=== PATIENT | female | born 1940 | race Caucasian/White ===

== ENCOUNTER 2017-10-14 12:07 | Emergency (ER) | payer MEDICARE, OTHER ==
[~2017-10-14] VITALS: Ht 170.2 cm; Wt 66.0 kg
[2017-10-14 12:46] LABS: BASOPHILS % (AUTO) 0.2 % (0-1); EOSINOPHILS # (AUTO) 0.6 X10'3 (0-0.9); EOSINOPHILS % (AUTO) 3.4 % (0-6); HEMATOCRIT 42.4 % (35.0-45.0); HEMOGLOBIN 14.8 g/dl (12.0-16.0); LYMPHOCYTES # (AUTO) 7.3 X10'3 (1.1-4.8); LYMPHOCYTES % (AUTO) 38.5 % (21-51); MEAN CORPUSCULAR HEMOGLOBIN 31.7 PG (27.0-31.0); MEAN CORPUSCULAR HGB CONC 34.8 % (33.0-36.5); MEAN CORPUSCULAR VOLUME 91.3 FL (78-98); MEAN PLATELET VOLUME 8.6 FL (7.4-10.4); MONOCYTES # (AUTO) 0.8 X10'3 (0-0.9); MONOCYTES % (AUTO) 4.2 % (2-12); NEUTROPHILS # (AUTO) 10.3 X10'3 (1.8-7.7); NEUTROPHILS % (AUTO) 53.7 % (42-75); PLATELET COUNT 201 X10'3 (140-440); RED BLOOD COUNT 4.65 X10'6 (4.20-5.60); RED CELL DISTRIBUTION WIDTH 14.1 % (11.5-14.5); WHITE BLOOD COUNT 19.1 X10'3 (4.5-11.0)
[2017-10-14 12:56] LABS: PARTIAL THROMBOPLASTIN TIME 26 SECONDS (22-32); PROTHROMBIN TIME 10.2 SECONDS (9.0-12.0)
[2017-10-14 13:02] LABS: ALANINE AMINOTRANSFERASE 19 U/L (12-78); ALBUMIN 3.8 G/DL (3.4-5.0); ALBUMIN/GLOBULIN RATIO 1.2 (1.1-1.5); ALKALINE PHOSPHATASE 63 IU/L (46-116); ANION GAP 7 (8-16); ASPARTATE AMINO TRANSFERASE 19 U/L (10-37); BILIRUBIN,TOTAL 0.6 MG/DL (0.1-1.0); BLOOD UREA NITROGEN 16 MG/DL (7-18); BUN/CREATININE RATIO 19.5 (6.6-38.0); CALCIUM 8.8 MG/DL (8.5-10.1); CHLORIDE 101 MMOL/L (99-107); CREATININE 0.82 MG/DL (0.40-0.90); GLUCOSE 126 MG/DL (70-104); POTASSIUM 4.4 MMOL/L (3.5-5.1); SODIUM 137 MMOL/L (135-145); TOTAL CARBON DIOXIDE 29.5 MMOL/L (24-32); eGFR 67 ML/MIN
[2017-10-14] MEDS ORDERED: normal saline 1000ML IV soln IVB ONE (13:35)
[2017-10-14 14:42] VITALS: BP 132/66
== END 2017-10-14 14:44 | disposition home or self-care (01) ==
LOC: ER 12:08
DX: R10.11 Right upper quadrant pain (principal); R10.13 Epigastric pain; E11.9 Type 2 diabetes mellitus without complications; Z90.49 Acquired absence of other specified parts of digestive tract; Z88.2 Allergy status to sulfonamides; Z88.8 Allergy status to other drugs, medicaments and biological substances
CPT/HCPCS: 36415; 71045; 80053; 83605; 84145; 84484; 85025; 85610; 85730; 87040; 93005; 99285; J7030

== ENCOUNTER 2019-09-15 14:12 | Emergency (ER) | payer MEDICARE, OTHER ==
[~2019-09-15] VITALS: Ht 172.7 cm; Wt 70.0 kg
[2019-09-15] MEDS ORDERED: acetaminophen 325mg tablet PO ONE (14:45)
--- NOTE | 2019-09-15 14:59 | NUR ---
relieving RN for break, pt is resting quietly on [address], waiting for pharmacy technician
[2019-09-15] MEDS ORDERED: CEPH-572 PO (16:34)
[2019-09-15] MEDS ORDERED: cephalexin 250mg capsule PO ONE (16:35)
[2019-09-15 16:56] VITALS: BP 189/89
== END 2019-09-15 16:58 | disposition home or self-care (01) ==
LOC: ER 14:12
DX: L03.116 Cellulitis of left lower limb (principal); E11.9 Type 2 diabetes mellitus without complications; Z90.49 Acquired absence of other specified parts of digestive tract; Z88.2 Allergy status to sulfonamides; Z91.041 Radiographic dye allergy status; Z88.8 Allergy status to other drugs, medicaments and biological substances; Z79.899 Other long term (current) drug therapy
CPT/HCPCS: 93971; 99284

== ENCOUNTER 2019-10-08 14:10 | Inpatient (IN) | payer MEDICARE, OTHER ==
[~2019-10-08] VITALS: Ht 170.2 cm; Wt 78.6 kg
[~2019-10-08 14:10] MED LIST: CEPH-572 PO
[2019-10-08] MEDS ORDERED: normal saline 1000ML IV soln IV ONE (15:00)
[2019-10-08] MEDS ORDERED: fentaNYL/PF 50MCG/1 ML 2ML syringe IV ONE (15:15)
[2019-10-08] MEDS ORDERED: piperacillin/tazo 3.375gm/50ml 50 ML IV ONE (15:15)
[2019-10-08] MEDS ORDERED: vancomycin/NS 1 GM ADD-VANTAGE 250 ML IV ONE (15:15)
[2019-10-08] MEDS ORDERED: ondansetron/PF 4mg/2ml inj IV ONE (15:15)
[2019-10-08 15:34] LABS: BASOPHILS # (AUTO) 0.1 X10'3 (0-0.2); BASOPHILS % (AUTO) 0.5 % (0-1); EOSINOPHILS # (AUTO) 0.2 X10'3 (0-0.9); EOSINOPHILS % (AUTO) 1.1 % (0-6); HEMOGLOBIN 13.9 g/dl (12.0-16.0); LYMPHOCYTES # (AUTO) 7.7 X10'3 (1.1-4.8); LYMPHOCYTES % (AUTO) 43.9 % (21-51); MEAN CORPUSCULAR HEMOGLOBIN 32.5 PG (27.0-31.0); MEAN CORPUSCULAR HGB CONC 34.6 g/dL (33.0-36.5); MEAN CORPUSCULAR VOLUME 93.8 FL (78-98); MEAN PLATELET VOLUME 8.5 FL (7.4-10.4); MONOCYTES # (AUTO) 0.6 X10'3 (0-0.9); MONOCYTES % (AUTO) 3.4 % (2-12); NEUTROPHILS % (AUTO) 51.1 % (42-75); PLATELET COUNT 186 X10'3 (140-440); RED BLOOD COUNT 4.27 X10'6 (4.20-5.60); RED CELL DISTRIBUTION WIDTH 13.7 % (11.5-14.5); WHITE BLOOD COUNT 17.6 X10'3 (4.5-11.0)
[2019-10-08] MEDS ORDERED: LORazepam 2 mg/ml vial IV ONE (15:40)
[2019-10-08 15:50] LABS: ALANINE AMINOTRANSFERASE 15 U/L (12-78); ALBUMIN 3.8 G/DL (3.4-5.0); ALBUMIN/GLOBULIN RATIO 1.2 (1.1-1.5); ALKALINE PHOSPHATASE 64 IU/L (46-116); ANION GAP 9 (8-16); ASPARTATE AMINO TRANSFERASE 14 U/L (10-37); BILIRUBIN,TOTAL 0.6 MG/DL (0.1-1.0); BLOOD UREA NITROGEN 12 MG/DL (7-18); BUN/CREATININE RATIO 13.5 (6.6-38.0); CHLORIDE 104 MMOL/L (99-107); CREATININE 0.89 MG/DL (0.40-0.90); GLUCOSE 123 MG/DL (70-104); POTASSIUM 4.3 MMOL/L (3.5-5.1); SODIUM 140 MMOL/L (135-145); TOTAL CARBON DIOXIDE 26.9 MMOL/L (24-32); TOTAL PROTEIN 6.9 G/DL (6.4-8.2); eGFR 61 ML/MIN
--- NOTE | 2019-10-08 16:00 | NUR ---
TRICIA Wynne aware of Pt's BP. Pt is very anxious regarding potential admission and possiblity of surgery. Pt was given 0.5 mg Ativan IVP. Per TRICIA Wynne, will continue to monitor and treat BP if remains elevated.
--- NOTE | 2019-10-08 16:31 | NUR ---
VASCULAR US UNDERWAY
[2019-10-08] MEDS ORDERED: iohexol 350 MG/ML 50ML vial IV ONE (16:44)
[2019-10-08] MEDS ORDERED: iohexol 350MG/ML 100ml bottle IV ONE (16:44)
[2019-10-08] MEDS ORDERED: NO HOME MEDS (16:57)
--- NOTE | 2019-10-08 17:52 | NUR ---
discussed pt's bp with hospitalist nikia; new order for clonidine 0.1 mg iv now received.
[2019-10-08] MEDS ORDERED: cloNIDine 0.1 mg tablet PO ONE ×2 (18:00→18:10)
[2019-10-08] MEDS: normal saline 1000ml 1,000 ML IV SCH (18:02)
[2019-10-08] MEDS ORDERED: magnesium Cl slow-release 64mg tablet PO PRN (18:05)
[2019-10-08] MEDS ORDERED: potassium Cl 20 mEq SR tablet PO PRN ×2 (18:05)
[2019-10-08] MEDS ORDERED: ondansetron/PF 4mg/2ml inj IV PRN (18:05)
[2019-10-08] MEDS ORDERED: magnesium 2GM in 50ml NS 50 ML IV PRN (18:05)
[2019-10-08] MEDS ORDERED: potassium CL 10mEq/100ml bag 100 ML IV PRN ×2 (18:05)
[2019-10-08] MEDS ORDERED: docusate sod 100mg capsule PO PRN (18:05)
[2019-10-08] MEDS ORDERED: magnesium 4gm in 100ml NS 100 ML IV PRN (18:05)
[2019-10-08] MEDS ORDERED: acetaminophen 325mg tablet PO PRN (18:05)
--- NOTE | 2019-10-08 18:30 | NUR ---
PT REFUSES TO WEAR 5-LEAD HEART MONITOR. WILL CONTINUE TO MONITOR PT
[2019-10-08] MEDS: hyDRALAzine 10mg tablet PO SCH (18:34)
[2019-10-08 19:06] LABS: HEMOGLOBIN A1C 6.4 % (4.5-6.2)
--- NOTE | 2019-10-08 19:30 | NUR ---
I was given verbal report by Melanie KOTHARI in the ER and I will give report to Babs KOTHARI,
--- NOTE | 2019-10-08 19:40 | NUR ---
patient arrived to floor via gurney and she was assisted to the bed with 2 assist. Belongings placed in the closet and drawers,
[2019-10-08 20:00] VITALS: BP 201/89
[2019-10-08] MEDS: K and/or MAG REPLACEMENT MC SCH (20:00)
[2019-10-08] MEDS: acetaminophen 325mg tablet PO PRN (20:17)
[2019-10-08] MEDS: heparin, porcine 5000 units/ml vial SQ SCH (20:57)
[2019-10-08] MEDS ORDERED: traMADol 50MG tablet PO ONE (21:50)
[2019-10-08 22:00] VITALS: BP 191/84
--- NOTE | 2019-10-08 22:30 | NUR ---
patient continues to c/o sharp pain shooting LLE. Tylenol was administered upon arrival to floor. MD was called and Ultram was administered. Gatched bed and placed powder pack. patient still c/o pain and states that it feels better when she sits on edge of bed. Educated about dependent edema and how this can effect her pain... patient refusing all interventions. States she is scared to take any narcotics, but was given fentanyl in ER.
--- NOTE | 2019-10-09 06:29 | NUR ---
Problems reprioritized. Patient report given, questions answered & plan of care reviewed with TAYE Johnson.
[2019-10-09 06:30] VITALS: BP 163/65
--- NOTE | 2019-10-09 07:00 | NUR ---
Patient in room ORTHO 4012. I have received report from Babs KOTHARI and had the opportunity to ask questions and assume patient care.
[2019-10-09 07:43] LABS: BASOPHILS % (AUTO) 0.3 % (0-1); EOSINOPHILS # (AUTO) 0.1 X10'3 (0-0.9); HEMOGLOBIN 12.4 g/dl (12.0-16.0); LYMPHOCYTES % (AUTO) 36.2 % (21-51); MEAN CORPUSCULAR HGB CONC 34.6 g/dL (33.0-36.5); MEAN CORPUSCULAR VOLUME 95.4 FL (78-98); MEAN PLATELET VOLUME 8.9 FL (7.4-10.4); MONOCYTES # (AUTO) 0.6 X10'3 (0-0.9); NEUTROPHILS # (AUTO) 8.1 X10'3 (1.8-7.7); NEUTROPHILS % (AUTO) 58.5 % (42-75); PLATELET COUNT 167 X10'3 (140-440); RED BLOOD COUNT 3.77 X10'6 (4.20-5.60); RED CELL DISTRIBUTION WIDTH 13.5 % (11.5-14.5); WHITE BLOOD COUNT 13.9 X10'3 (4.5-11.0)
[2019-10-09] MEDS: pantoprazole 40mg Tablet.DR PO SCH (07:45)
[2019-10-09] MEDS: hyDRALAzine 10mg tablet PO SCH ×2 (07:46→19:20)
--- NOTE | 2019-10-09 07:57 | NUR ---
Student Medication Administration: For this medication-pass time frame, all medication were reviewed, dispensed, administered and documented per hospital policy by Meeta Student Nurse.
[2019-10-09] MEDS: heparin, porcine 5000 units/ml vial SQ SCH ×2 (08:00→19:21)
[2019-10-09] MEDS: K and/or MAG REPLACEMENT MC SCH ×2 (08:00→19:13)
[2019-10-09 08:17] LABS: ALANINE AMINOTRANSFERASE 18 U/L (12-78); ALBUMIN 3.3 G/DL (3.4-5.0); ALBUMIN/GLOBULIN RATIO 1.2 (1.1-1.5); ALKALINE PHOSPHATASE 53 IU/L (46-116); ANION GAP 7 (8-16); ASPARTATE AMINO TRANSFERASE 40 U/L (10-37); BILIRUBIN,TOTAL 0.7 MG/DL (0.1-1.0); BLOOD UREA NITROGEN 11 MG/DL (7-18); BUN/CREATININE RATIO 12.9 (6.6-38.0); CALCIUM 8.3 MG/DL (8.5-10.1); CHLORIDE 106 MMOL/L (99-107); CHOLESTEROL 136 MG/DL (0-200); CREATININE 0.85 MG/DL (0.40-0.90); GLUCOSE 151 MG/DL (70-104); HDL CHOLESTEROL 46 MG/DL (35-60); LDL CHOLESTEROL 74 MG/DL (50-100); MAGNESIUM 1.8 MG/DL (1.5-2.4); POTASSIUM 4.1 MMOL/L (3.5-5.1); SODIUM 142 MMOL/L (135-145); TOTAL CARBON DIOXIDE 29.3 MMOL/L (24-32); TRIGLYCERIDES 76 MG/DL (20-135); eGFR 64 ML/MIN
--- NOTE | 2019-10-09 08:43 | NUR ---
PAGER ID: [phone] MESSAGE: [phone] Irish Sierra: patient has CTA ordered, she states she has an iodine allergy. forestry technical officer called wants to know if you would like to premedicate or do an MRI? rahul [phone]
--- NOTE | 2019-10-09 08:50 | NUR ---
PAGER ID: [phone] MESSAGE: [phone] Irish Sierra : CTA is not possible without iodine. They can do a regular CT without contrast... thanks, rahul [phone]
[2019-10-09] MEDS: acetaminophen 325mg tablet PO PRN (10:38)
[2019-10-09] MEDS: normal saline 1000ml 1,000 ML IV SCH ×2 (10:41→22:38)
[2019-10-09 11:00] VITALS: BP 171/60
--- NOTE | 2019-10-09 12:21 | NUR ---
Student documentation: I have reviewed interventions, assessments performed and documented by Crystal Student Nurse.
[2019-10-09] MEDS ORDERED: diphenhydrAMINE 25mg capsule PO ONE (12:55)
[2019-10-09] MEDS ORDERED: prednisone 10mg tablet PO PRN (12:55)
--- NOTE | 2019-10-09 15:30 | NUR ---
PAGER ID: [phone] MESSAGE: [phone] Irish Sierra : patients BP has been trending high. would you like a PRN in addition to her home meds? rahul [phone]
[2019-10-09] MEDS ORDERED: labetalol 100mg tablet PO SCH (15:35)
[2019-10-09] MEDS: vancomycin/NS 1 GM ADD-VANTAGE 250 ML IV SCH (15:39)
--- NOTE | 2019-10-09 15:59 | NUR ---
Patients BP has been trending high. she states she is allergic to BP medications and is hesitant to use them. Labetalol ordered by MD. patient refused.
--- NOTE | 2019-10-09 16:03 | NUR ---
PAGER ID: [phone] MESSAGE: [phone] Irish Sierra : patient refused labetolol. said she would do lisinopril because that was not a true allergy. thanks, rahul [phone]
[2019-10-09] MEDS ORDERED: LORazepam 0.5 MG tablet PO ONE (16:10)
[2019-10-09 16:37] VITALS: BP 160/62
[2019-10-09] MEDS: lisinopril 10 MG tablet PO SCH (16:37)
--- NOTE | 2019-10-09 17:26 | NUR ---
Problems reprioritized. Patient report given, questions answered & plan of care reviewed with TAYE Johnson.
[2019-10-09 18:00] VITALS: BP 167/66
--- NOTE | 2019-10-09 18:23 | NUR ---
Problems reprioritized. Patient report given, questions answered & plan of care reviewed with TAYE Menendez. Addendum: 10/09/19 at 1824 by Yolanda Chan RN Problems reprioritized. Patient report given, questions answered & plan of care reviewed with TAYE BOSTON.
--- NOTE | 2019-10-09 18:30 | NUR ---
received report. patient extremely anxious regarding CTA with contrast. Adamantly refusing steroids/benedryl and contrast media. Explained that she has this right, but that MD needs a good picture in order to perform sx. being that she came here for help, we are trying to do this, but having trouble since she is refusing all interventions.
[2019-10-09] MEDS: lactobacillus rhamnosus 10,000 MMU CELLS/CAPSULE PO SCH (19:20)
[2019-10-09 22:00] VITALS: BP 189/77
[2019-10-10] MEDS: normal saline 1000ml 1,000 ML IV SCH ×3 (02:00→19:27)
[2019-10-10] MEDS: acetaminophen 325mg tablet PO PRN (05:01)
[2019-10-10 06:00] VITALS: BP 207/86
--- NOTE | 2019-10-10 06:20 | NUR ---
Patient in room ORTHO 4012. I have received report from Ginger and had the opportunity to ask questions and assume patient care.
[2019-10-10 06:29] LABS: BASOPHILS # (AUTO) 0.1 X10'3 (0-0.2); BASOPHILS % (AUTO) 0.7 % (0-1); EOSINOPHILS # (AUTO) 0.2 X10'3 (0-0.9); EOSINOPHILS % (AUTO) 1.4 % (0-6); HEMATOCRIT 34.1 % (35.0-45.0); LYMPHOCYTES # (AUTO) 4.6 X10'3 (1.1-4.8); LYMPHOCYTES % (AUTO) 38.2 % (21-51); MEAN CORPUSCULAR HEMOGLOBIN 33.5 PG (27.0-31.0); MEAN CORPUSCULAR HGB CONC 35.1 g/dL (33.0-36.5); MEAN CORPUSCULAR VOLUME 95.3 FL (78-98); MEAN PLATELET VOLUME 8.3 FL (7.4-10.4); MONOCYTES # (AUTO) 0.5 X10'3 (0-0.9); MONOCYTES % (AUTO) 3.8 % (2-12); NEUTROPHILS # (AUTO) 6.7 X10'3 (1.8-7.7); NEUTROPHILS % (AUTO) 55.9 % (42-75); PLATELET COUNT 154 X10'3 (140-440); RED BLOOD COUNT 3.58 X10'6 (4.20-5.60); RED CELL DISTRIBUTION WIDTH 13.5 % (11.5-14.5); WHITE BLOOD COUNT 11.9 X10'3 (4.5-11.0)
--- NOTE | 2019-10-10 06:30 | NUR ---
Problems reprioritized. Patient report given, questions answered & plan of care reviewed with TAYE Mullins.
[2019-10-10 06:48] LABS: ALANINE AMINOTRANSFERASE 17 U/L (12-78); ALBUMIN 2.9 G/DL (3.4-5.0); ALBUMIN/GLOBULIN RATIO 1.1 (1.1-1.5); ALKALINE PHOSPHATASE 44 IU/L (46-116); ANION GAP 6 (8-16); ASPARTATE AMINO TRANSFERASE 30 U/L (10-37); BILIRUBIN,TOTAL 0.5 MG/DL (0.1-1.0); BLOOD UREA NITROGEN 7 MG/DL (7-18); CHLORIDE 108 MMOL/L (99-107); CREATININE 0.78 MG/DL (0.40-0.90); GLUCOSE 167 MG/DL (70-104); MAGNESIUM 1.8 MG/DL (1.5-2.4); POTASSIUM 3.9 MMOL/L (3.5-5.1); SODIUM 142 MMOL/L (135-145); TOTAL CARBON DIOXIDE 28.2 MMOL/L (24-32); TOTAL PROTEIN 5.6 G/DL (6.4-8.2); eGFR 71 ML/MIN
[2019-10-10] MEDS: HYDROcodone/acetaminophen 5mg/325mg tablet PO PRN ×2 (06:58→22:35)
[2019-10-10] MEDS: pantoprazole 40mg Tablet.DR PO SCH (06:58)
[2019-10-10] MEDS: K and/or MAG REPLACEMENT MC SCH ×2 (08:00→20:00)
[2019-10-10] MEDS: hyDRALAzine 10mg tablet PO SCH (08:59)
[2019-10-10] MEDS: lactobacillus rhamnosus 10,000 MMU CELLS/CAPSULE PO SCH ×2 (09:00→20:00)
[2019-10-10] MEDS: lisinopril 10 MG tablet PO SCH (09:01)
[2019-10-10] MEDS: heparin, porcine 5000 units/ml vial SQ SCH ×2 (09:18→22:22)
--- NOTE | 2019-10-10 09:49 | NUR ---
DM consult: Pt with A1c 6.4%, DM education not warranted at this time. Will continue to follow. Addendum: 10/10/19 at [address] Amended: Links added.
[2019-10-10 10:00] VITALS: BP 175/79
--- NOTE | 2019-10-10 10:14 | NUR ---
Per MD, ordered one time CC/HH breakfast tray for pt. For now, the diet will remain on clears until new orders are received.
--- NOTE | 2019-10-10 11:45 | NUR ---
Paged physical therapy to work with pt for a second time. Pt adamantly refused to work with physical therapy. Pt was given pain medication this morning, refused to work with physical therapy after indicating the medication had helped but she was still feeling "off". Pt stated physical therapy should come to work with her after all of her testing and/or procedures. Pt refused to work with physical therapy citing fear of pain even though she stated she was pain free at the time. Teaching was provided regarding physical therapy, discharge planning, pt's abilities.
[2019-10-10] MEDS ORDERED: LIDOcaine 1%/PF 5ML 10 MG/ML VIAL ONE ×2 (15:44→17:48)
[2019-10-10] MEDS ORDERED: midazolam 2 mg/2 ml injection ONE ×3 (15:44→17:30)
[2019-10-10] MEDS ORDERED: heparin 1,000 UNITS/NS 500ml 500 ML ONE ×2 (15:44→17:01)
[2019-10-10] MEDS ORDERED: fentaNYL/PF 50MCG/1 ML 2ML syringe ONE ×3 (15:45→17:30)
--- NOTE | 2019-10-10 15:45 | NUR ---
Pt taken to angio
[2019-10-10] MEDS ORDERED: iohexol 300 MG/1 ML 50ml polymer ONE (16:16)
[2019-10-10] MEDS ORDERED: hydrALAZINE 20mg/ml inj. IV ONE ×2 (16:27→17:46)
[2019-10-10] MEDS ORDERED: heparin 1,000unit/ml 10ml vial 10 ML ONE (16:35)
[2019-10-10] MEDS ORDERED: ondansetron/PF 4mg/2ml inj ONE ×2 (17:14→18:19)
--- NOTE | 2019-10-10 18:34 | NUR ---
Problems reprioritized. Patient report given, questions answered & plan of care reviewed with
--- NOTE | 2019-10-10 18:44 | NUR ---
Patient in room ORTHO 4012. I have received report from Susanna KOTHARI and had the opportunity to ask questions and assume patient care.
[2019-10-10] MEDS: vancomycin/NS 1 GM ADD-VANTAGE 250 ML IV SCH (19:26)
[2019-10-10 19:45] VITALS: BP 169/75
[2019-10-10 22:00] VITALS: BP 174/72
[2019-10-10] MEDS: cloNIDine 0.1 mg tablet PO SCH (22:21)
[2019-10-11 02:00] VITALS: BP 158/57
--- NOTE | 2019-10-11 02:22 | NUR ---
PATIENT WAS IN ANGIO AT CHANGE OF SHIFT. RETURNED TO FLOOR AT 1935. HAD DEVELOPED A HEMATOMA WITH INITIAL PUNCTURE. DISCOLORATION/BRUISING EVIDENT BUT SURROUNDING TISSUE SOFT. FEM/STOP TO SECONDARY PUNCTURE INTACT, PATIENT EDUCATED ON LYING FLAT UNTIL MIDNIGHT. ICE CHIPS GIVEN. REPORTED PATIENT RECEIVED HYDROLAZINE DURING PROCEDURE FOR ELEVATED B/P, HEPARIN, FENTANYL AND VERSED. VERY SLEEPY, BUT WAKES TO LIGHT TOUCH. PROCEDURE WAS DONE BY ENTERING R GROIN AND REPAIR DONE TO RLE. DRSNG INTACT TO LL CALF AREA AND ELEVATED ON PILLOW. VITAL SIGNS TAKEN, AND PATIENT FALLS BACK TO SLEEP EASILY WITH NO DISTRESS NOTED. SEVERAL TIMES THROUGH THE NIGHT SHE WOULD ASK TO SIT UP BUT WITH REMINDERS, WAS ABLE TO GO BACK TO SLEEP. MEDICATED AT ONE POINT WITH A NORCO 5, CRUSHED AND GIVEN IN APPLESAUCE, TOLERATED WELL. FEM/STOP WAS REMOVED AT 0130. SMALL PATCH OF DRAINAGE TO CENTER OF DRESSING, INITIAL PUNCTURE SITE REMAINS BRUISED BUT SOFT TO TOUCH. HOB UP 20 DEGREES, DRANK A CUP OF WATER AND SEEMS COMFORTABLE NOW. CALL LIGHT IN REACH. PLACED WICK EARLIER AFTER PATIENT RETURNED FROM ANGIO D/T INCONTINENCE AND SEEMS TO BE WORKING WELL FOR HER.
[2019-10-11] MEDS: HYDROcodone/acetaminophen 5mg/325mg tablet PO PRN ×4 (03:34→23:08)
--- NOTE | 2019-10-11 03:36 | NUR ---
norco ordered q6hrs, but patient in a lot of pain at this time. Given verbal order by Dr Holloway to change frequency to q4 and dose to 10mg. Pt refuses 10mg dose, so will give [place] 5mg with frequency changed to Q4Hr.
[2019-10-11] MEDS: normal saline 1000ml 1,000 ML IV SCH ×2 (05:25→19:30)
[2019-10-11 06:00] VITALS: BP 147/54
[2019-10-11 06:48] LABS: BASOPHILS # (AUTO) 0.1 X10'3 (0-0.2); BASOPHILS % (AUTO) 0.4 % (0-1); EOSINOPHILS # (AUTO) 0.1 X10'3 (0-0.9); EOSINOPHILS % (AUTO) 0.5 % (0-6); HEMATOCRIT 30.3 % (35.0-45.0); HEMOGLOBIN 10.6 g/dl (12.0-16.0); LYMPHOCYTES # (AUTO) 4.8 X10'3 (1.1-4.8); LYMPHOCYTES % (AUTO) 32.9 % (21-51); MEAN CORPUSCULAR HEMOGLOBIN 33.3 PG (27.0-31.0); MEAN CORPUSCULAR HGB CONC 34.8 g/dL (33.0-36.5); MEAN CORPUSCULAR VOLUME 95.6 FL (78-98); MEAN PLATELET VOLUME 8.5 FL (7.4-10.4); MONOCYTES # (AUTO) 0.5 X10'3 (0-0.9); MONOCYTES % (AUTO) 3.6 % (2-12); NEUTROPHILS # (AUTO) 9.2 X10'3 (1.8-7.7); NEUTROPHILS % (AUTO) 62.6 % (42-75); PLATELET COUNT 183 X10'3 (140-440); RED BLOOD COUNT 3.17 X10'6 (4.20-5.60); RED CELL DISTRIBUTION WIDTH 13.7 % (11.5-14.5); WHITE BLOOD COUNT 14.7 X10'3 (4.5-11.0)
--- NOTE | 2019-10-11 06:54 | NUR ---
REPORT TO EARLY SHIFT, DIMITRI KOTHARI
[2019-10-11 06:57] LABS: ALANINE AMINOTRANSFERASE 15 U/L (12-78); ALBUMIN 2.6 G/DL (3.4-5.0); ALKALINE PHOSPHATASE 42 IU/L (46-116); ANION GAP 8 (8-16); ASPARTATE AMINO TRANSFERASE 27 U/L (10-37); BILIRUBIN,TOTAL 0.4 MG/DL (0.1-1.0); BLOOD UREA NITROGEN 10 MG/DL (7-18); BUN/CREATININE RATIO 13.3 (6.6-38.0); CHLORIDE 109 MMOL/L (99-107); CREATININE 0.75 MG/DL (0.40-0.90); GLUCOSE 143 MG/DL (70-104); MAGNESIUM 1.9 MG/DL (1.5-2.4); POTASSIUM 3.8 MMOL/L (3.5-5.1); SODIUM 143 MMOL/L (135-145); TOTAL CARBON DIOXIDE 25.8 MMOL/L (24-32); TOTAL PROTEIN 5.2 G/DL (6.4-8.2); eGFR 74 ML/MIN
[2019-10-11] MEDS: K and/or MAG REPLACEMENT MC SCH ×2 (08:00→20:00)
[2019-10-11] MEDS: lisinopril 10 MG tablet PO SCH (08:07)
[2019-10-11] MEDS: pantoprazole 40mg Tablet.DR PO SCH (08:07)
[2019-10-11] MEDS: lactobacillus rhamnosus 10,000 MMU CELLS/CAPSULE PO SCH ×2 (08:07→19:30)
[2019-10-11] MEDS: cloNIDine 0.1 mg tablet PO SCH ×3 (08:08→23:08)
[2019-10-11] MEDS: heparin, porcine 5000 units/ml vial SQ SCH ×2 (08:14→19:30)
[2019-10-11 10:00] VITALS: BP 137/44
--- NOTE | 2019-10-11 13:23 | NUR ---
PAGER ID: [phone] MESSAGE: [phone] Son is at bedside with questions re plan of care. [id number] shorty
[2019-10-11 14:23] VITALS: BP 151/62
[2019-10-11] MEDS ORDERED: VANCOMYCIN LEVEL IV ONE (15:30)
[2019-10-11] MEDS: vancomycin/NS 1 GM ADD-VANTAGE 250 ML IV SCH (17:14)
[2019-10-11 18:00] VITALS: BP 149/62
[2019-10-11] MEDS: hydrALAZINE 25 MG tablet PO SCH (21:00)
[2019-10-11 22:00] VITALS: BP 144/52
[2019-10-12 06:17] VITALS: BP 174/54
[2019-10-12 06:33] LABS: BASOPHILS # (AUTO) 0.1 X10'3 (0-0.2); BASOPHILS % (AUTO) 0.5 % (0-1); EOSINOPHILS # (AUTO) 0.3 X10'3 (0-0.9); EOSINOPHILS % (AUTO) 1.8 % (0-6); HEMATOCRIT 31.6 % (35.0-45.0); HEMOGLOBIN 10.9 g/dl (12.0-16.0); LYMPHOCYTES # (AUTO) 5.9 X10'3 (1.1-4.8); LYMPHOCYTES % (AUTO) 39.4 % (21-51); MEAN CORPUSCULAR HEMOGLOBIN 32.9 PG (27.0-31.0); MEAN CORPUSCULAR HGB CONC 34.4 g/dL (33.0-36.5); MEAN CORPUSCULAR VOLUME 95.7 FL (78-98); MEAN PLATELET VOLUME 8.8 FL (7.4-10.4); MONOCYTES # (AUTO) 0.6 X10'3 (0-0.9); MONOCYTES % (AUTO) 4.2 % (2-12); NEUTROPHILS # (AUTO) 8.2 X10'3 (1.8-7.7); NEUTROPHILS % (AUTO) 54.1 % (42-75); PLATELET COUNT 201 X10'3 (140-440); RED BLOOD COUNT 3.31 X10'6 (4.20-5.60); RED CELL DISTRIBUTION WIDTH 13.8 % (11.5-14.5); WHITE BLOOD COUNT 15.1 X10'3 (4.5-11.0)
[2019-10-12 06:49] LABS: ALANINE AMINOTRANSFERASE 19 U/L (12-78); ALBUMIN 2.8 G/DL (3.4-5.0); ALBUMIN/GLOBULIN RATIO 0.9 (1.1-1.5); ALKALINE PHOSPHATASE 45 IU/L (46-116); ANION GAP 9 (8-16); ASPARTATE AMINO TRANSFERASE 27 U/L (10-37); BILIRUBIN,TOTAL 0.6 MG/DL (0.1-1.0); BLOOD UREA NITROGEN 11 MG/DL (7-18); BUN/CREATININE RATIO 12.2 (6.6-38.0); CALCIUM 8.1 MG/DL (8.5-10.1); CHLORIDE 105 MMOL/L (99-107); GLUCOSE 130 MG/DL (70-104); MAGNESIUM 1.8 MG/DL (1.5-2.4); POTASSIUM 4.1 MMOL/L (3.5-5.1); SODIUM 139 MMOL/L (135-145); TOTAL CARBON DIOXIDE 24.6 MMOL/L (24-32); TOTAL PROTEIN 5.8 G/DL (6.4-8.2); eGFR 60 ML/MIN
--- NOTE | 2019-10-12 07:35 | NUR ---
Dr Holder called, unable to find pulses in left leg, dorsalis pedis absent via doppler, no cap refill in toes. Posterior tibial may be faint via doppler. Popliteal not felt. Ordered stat ultrasound.
[2019-10-12] MEDS: K and/or MAG REPLACEMENT MC SCH ×2 (08:00→20:00)
[2019-10-12] MEDS: HYDROcodone/acetaminophen 5mg/325mg tablet PO PRN (08:15)
[2019-10-12] MEDS: hydrALAZINE 25 MG tablet PO SCH ×3 (08:26→23:35)
[2019-10-12] MEDS: cloNIDine 0.1 mg tablet PO SCH ×3 (08:26→23:36)
[2019-10-12] MEDS: lactobacillus rhamnosus 10,000 MMU CELLS/CAPSULE PO SCH ×2 (08:26→23:37)
[2019-10-12] MEDS: lisinopril 10 MG tablet PO SCH (08:26)
[2019-10-12] MEDS: normal saline 1000ml 1,000 ML IV SCH ×2 (08:34→23:36)
[2019-10-12] MEDS: pantoprazole 40mg Tablet.DR PO SCH (08:34)
--- NOTE | 2019-10-12 09:03 | NUR ---
Dr Holder called with doppler results showing popliteal artery occlusion. Dr Holder calling IR. Patient kept npo, given bp meds and pain medication.
[2019-10-12] MEDS ORDERED: heparin 25,000 UNIT/250ml bag 250 ML IV SCH (09:31)
[2019-10-12] MEDS ORDERED: heparin 10,000 units/1 ML INJ IV ONE (09:35)
[2019-10-12] MEDS ORDERED: heparin 10,000 units/1 ML INJ IV PRN (09:35)
--- NOTE | 2019-10-12 09:35 | NUR ---
oRDERS FOR HEP GTT AND NPO, VEIN MAPPING PER DR YANG.
[2019-10-12] MEDS ORDERED: diphenhydrAMINE 50 mg/ml inj IV ONE (11:20)
[2019-10-12] MEDS ORDERED: LIDOcaine 1%/PF 5ML 10 MG/ML VIAL ONE (11:31)
[2019-10-12] MEDS ORDERED: midazolam 2 mg/2 ml injection ONE ×2 (11:31→17:24)
[2019-10-12] MEDS ORDERED: fentaNYL/PF 50MCG/1 ML 2ML syringe ONE (11:32)
[2019-10-12] MEDS ORDERED: heparin 1,000 UNITS/NS 500ml 500 ML ONE (11:32)
[2019-10-12] MEDS ORDERED: iohexol 300mg/ml 100ml inj. ONE (11:32)
--- NOTE | 2019-10-12 11:32 | NUR ---
Patient to IR with staff via bed, son consented with MD on patient's behalf
[2019-10-12] MEDS ORDERED: methylPREDNISolone sod succ 125mg/2ml vial ONE ×2 (11:49→22:00)
[2019-10-12 13:25] VITALS: BP 148/57
--- NOTE | 2019-10-12 13:28 | NUR ---
Patient returned from IR, report received. Patient asleep, snoring. Wakes easily. VSS. 87% on room air, up to 93% with 2 liters nasal canula. Laying flat . Right groin with old hematoma, no worsening. Pulse still absent on left foot, weak with doppler on right. Per report IR was unable to revascularize the left extremity. Plan is for OR, keeping NPO.
[2019-10-12 13:40] VITALS: BP 143/57
[2019-10-12] MEDS: vancomycin/NS 1 GM ADD-VANTAGE 250 ML IV SCH (13:52)
[2019-10-12 13:55] VITALS: BP 153/59
[2019-10-12] MEDS ORDERED: normal saline 1000ml 1,000 ML IV SCH (14:04)
[2019-10-12] MEDS ORDERED: ceFAZolin 1000mg inj ONE ×4 (15:26→23:24)
[2019-10-12] MEDS ORDERED: heparin 10,000 units/1 ML INJ ONE (15:26)
--- NOTE | 2019-10-12 15:30 | NUR ---
Dr Holder in to consent for OR, patient's son at bedside.
[2019-10-12] MEDS ORDERED: LIDOcaine 1% (10mg/ml) 2ml vial ONE (15:31)
[2019-10-12] MEDS ORDERED: dexamethasone sod phosphate 10mg/ml inj ONE (17:17)
[2019-10-12] MEDS ORDERED: neostigmine methylsulfate 1 MG/ML 10ml vial ONE (17:17)
[2019-10-12] MEDS ORDERED: ondansetron/PF 4mg/2ml inj ONE (17:17)
[2019-10-12] MEDS ORDERED: glycopyrrolate 0.2mg/ml inj ONE (17:17)
[2019-10-12] MEDS ORDERED: desflurane 240ml liquid inh. IH ONE (17:17)
[2019-10-12] MEDS ORDERED: diphenhydrAMINE 50 mg/ml inj ONE (17:17)
[2019-10-12] MEDS ORDERED: fentaNYL /PF 50mcg/ml 5ml ampule ONE ×2 (17:25→20:08)
[2019-10-12] MEDS ORDERED: propofol inj 20 ML IV ONE (18:40)
[2019-10-12] MEDS ORDERED: LIDOcaine 2% (20mg/ml) 5ml vial ONE (18:40)
[2019-10-12] MEDS ORDERED: rocuronium 10mg/ml inj IV ONE ×2 (18:40)
[2019-10-12] MEDS ORDERED: insulin regular, human U-100 3ml vial - multi-dose ONE (21:27)
[2019-10-12] MEDS ORDERED: iohexol 300 MG/1 ML 50ml polymer ONE (22:00)
[2019-10-12 23:30] VITALS: BP 162/65
[2019-10-12] MEDS ORDERED: Potassium Cl inj 20 MEQ in ringers solution, lacted 1,000 ML IV SCH (23:37)
[2019-10-12 23:45] VITALS: BP 186/76
--- NOTE | 2019-10-12 23:50 | NUR ---
Patient in room CICU 2008 transferred directly from OR. I have received report from Alejandro Montalvo RN and had the opportunity to ask questions and assume patient care.
[2019-10-13] VITALS (25 sets, daily range): BP systolic 123–205; BP diastolic 44–102
[2019-10-13] MEDS ORDERED: labetalol 20mg/4ml (5mg/ml) syringe IV PRN (00:10)
[2019-10-13] MEDS ORDERED: HYDROmorphone 1 mg/ml syringe IV PRN (00:20)
[2019-10-13] MEDS: clopidogrel 75mg tablet PO SCH ×2 (00:24→11:13)
[2019-10-13] MEDS: HYDROmorphone inj. 0.5 MG/0.5 ML DISP.SYRIN IV PRN ×3 (00:27→20:16)
[2019-10-13 00:37] LABS: BASOPHILS # (AUTO) 0.2 X10'3 (0-0.2); BASOPHILS % (AUTO) 0.6 % (0-1); EOSINOPHILS % (AUTO) 0 % (0-6); HEMATOCRIT 30.3 % (35.0-45.0); HEMOGLOBIN 10.3 g/dl (12.0-16.0); LYMPHOCYTES # (AUTO) 10.8 X10'3 (1.1-4.8); LYMPHOCYTES % (AUTO) 35.4 % (21-51); MEAN CORPUSCULAR HEMOGLOBIN 32.6 PG (27.0-31.0); MEAN CORPUSCULAR HGB CONC 33.9 g/dL (33.0-36.5); MEAN CORPUSCULAR VOLUME 96.2 FL (78-98); MEAN PLATELET VOLUME 8.6 FL (7.4-10.4); MONOCYTES # (AUTO) 0.8 X10'3 (0-0.9); MONOCYTES % (AUTO) 2.5 % (2-12); NEUTROPHILS # (AUTO) 18.9 X10'3 (1.8-7.7); NEUTROPHILS % (AUTO) 61.5 % (42-75); PLATELET COUNT 272 X10'3 (140-440); RED BLOOD COUNT 3.15 X10'6 (4.20-5.60); RED CELL DISTRIBUTION WIDTH 13.4 % (11.5-14.5)
[2019-10-13 00:43] LABS: WHITE BLOOD COUNT 30.6 X10'3 (4.5-11.0)
[2019-10-13 00:45] LABS: ALANINE AMINOTRANSFERASE 17 U/L (12-78); ALBUMIN 2.8 G/DL (3.4-5.0); ALKALINE PHOSPHATASE 45 IU/L (46-116); ANION GAP 13 (8-16); ASPARTATE AMINO TRANSFERASE 22 U/L (10-37); BILIRUBIN,TOTAL 0.5 MG/DL (0.1-1.0); BLOOD UREA NITROGEN 17 MG/DL (7-18); BUN/CREATININE RATIO 15.2 (6.6-38.0); CHLORIDE 106 MMOL/L (99-107); CREATININE 1.12 MG/DL (0.40-0.90); GLUCOSE 222 MG/DL (70-104); MAGNESIUM 1.6 MG/DL (1.5-2.4); SODIUM 138 MMOL/L (135-145); TOTAL CARBON DIOXIDE 18.7 MMOL/L (24-32); TOTAL PROTEIN 5.5 G/DL (6.4-8.2); eGFR 47 ML/MIN
[2019-10-13 00:53] LABS: PARTIAL THROMBOPLASTIN TIME 85 SECONDS (22-32)
[2019-10-13] MEDS: methylPREDNISolone sod succ 125mg/2ml vial IV SCH ×6 (00:57→20:07)
[2019-10-13 01:01] LABS: PLATELET ESTIMATE NORMAL; TOTAL CELLS COUNTED 100
[2019-10-13] MEDS: vancomycin/NS 1 GM ADD-VANTAGE 250 ML IV SCH ×3 (02:41→20:06)
[2019-10-13] MEDS: Potassium Cl inj 20 MEQ in ringers solution, lacted 1,000 ML IV SCH ×3 (03:29→23:06)
[2019-10-13] MEDS: HYDROcodone/acetaminophen 10/325mg tab PO PRN (03:32)
--- NOTE | 2019-10-13 06:21 | NUR ---
Problems reprioritized. Patient report given, questions answered & plan of care reviewed with TAYE Concepcion.
--- NOTE | 2019-10-13 06:30 | NUR ---
Pt accidentally pulled art line out of right wrist while pulling at restraints. Small amount of bleeding but easily controlled. Bruising and swelling noted to right wrist, neurovascular is intact, no hematoma. Gauze dressing changed to right lower leg wound for breakthrough drainage. Left foot is pink/ red in color and warm. Strong dorsalis and posterior tibial via doppler. Dressing to left inner thigh intact with some breakthrough drainage. wound vac intact to left groin. Ecchymosis to right groin, without hematoma. Dressing to puncture site clean and dry. Patient remains anxious and somewhat confused/forgetful. Wrist restraints on for safety and pulling at lines.
[2019-10-13] MEDS: K and/or MAG REPLACEMENT MC SCH ×2 (08:00→20:00)
[2019-10-13] MEDS ORDERED: dextrose ORAL solution 15 GM/59 ML bottle PO PRN ×2 (11:10)
[2019-10-13] MEDS ORDERED: dextrose 50%-water 50ml dispensing syringe IV PRN ×2 (11:10)
[2019-10-13] MEDS ORDERED: glucagon, human recombinant 1mg kit SUBCUT PRN (11:10)
[2019-10-13] MEDS: lactobacillus rhamnosus 10,000 MMU CELLS/CAPSULE PO SCH ×2 (11:13→20:06)
[2019-10-13] MEDS: cloNIDine 0.1 mg tablet PO SCH ×3 (11:13→20:06)
[2019-10-13] MEDS: pantoprazole 40mg Tablet.DR PO SCH (11:13)
[2019-10-13] MEDS: lisinopril 10 MG tablet PO SCH (11:13)
[2019-10-13] MEDS: apixaban 5mg tablet PO SCH ×3 (11:14→20:06)
[2019-10-13] MEDS: hydrALAZINE 25 MG tablet PO SCH ×3 (11:14→20:06)
[2019-10-13 11:36] LABS: BASOPHILS % (AUTO) 0.1 % (0-1); EOSINOPHILS % (AUTO) 0 % (0-6); HEMATOCRIT 26.4 % (35.0-45.0); HEMOGLOBIN 8.8 g/dl (12.0-16.0); LYMPHOCYTES % (AUTO) 26.9 % (21-51); MEAN CORPUSCULAR HGB CONC 33.5 g/dL (33.0-36.5); MEAN CORPUSCULAR VOLUME 95.4 FL (78-98); MEAN PLATELET VOLUME 8.7 FL (7.4-10.4); MONOCYTES # (AUTO) 0.9 X10'3 (0-0.9); MONOCYTES % (AUTO) 3.5 % (2-12); NEUTROPHILS % (AUTO) 69.5 % (42-75); PLATELET COUNT 228 X10'3 (140-440); RED BLOOD COUNT 2.76 X10'6 (4.20-5.60); RED CELL DISTRIBUTION WIDTH 13.8 % (11.5-14.5)
[2019-10-13 11:39] LABS: WHITE BLOOD COUNT 25.9 X10'3 (4.5-11.0)
[2019-10-13] MEDS: insulin Lispro (HumaLOG) vial - multi-dose SQ SCH (13:50)
--- NOTE | 2019-10-13 15:11 | NUR ---
Initial: pt s/p fempop 10/11; on clear liquid diet. Has NG tube for medications. Wound vac present to L groin. Chronic LE wounds present: DM/venous ulcers per EMR. Will monitor for diet advancement, PO intake, and need for supplementation in view of increased protein needs r/t wound heal. Recommend: 1. Diet advancement as medically indicated to carb controlled 2. monitor PO and need for ONS in view of increased protein needs r/t wound heal 3. bowel care as needed 4. weight per rx Addendum: 10/13/19 at [address] Amended: Links added.
[2019-10-13] MEDS: HYDROcodone/acetaminophen 5mg/325mg tablet PO PRN (17:20)
--- NOTE | 2019-10-13 18:17 | NUR ---
Patient in room CICU 2008. I have received report from TAYE Concepcion and had the opportunity to ask questions and assume patient care.
[2019-10-13] MEDS: levoFLOXACIN-Levaquin 750MG/D5 150 ML IV SCH (18:40)
[2019-10-13] MEDS ORDERED: VANCOMYCIN LEVEL IV ONE (20:30)
[2019-10-13] MEDS: insulin glargine (Lantus) pen - multi-dose SQ SCH (21:53)
[2019-10-13] MEDS ORDERED: albumin (Human) 5% 250ml 250 ML IV ONE ×2 (22:50)
[2019-10-14] VITALS (24 sets, daily range): BP systolic 118–188; BP diastolic 51–85
[2019-10-14] MEDS: HYDROcodone/acetaminophen 10/325mg tab PO PRN ×2 (00:13→19:12)
--- NOTE | 2019-10-14 00:39 | NUR ---
pt reports 8/10 pain in her chest, abdomen, and leg. pt given pain medication per md order. pt then stated it feels like she can't breathe. Asked pt if she has anxiety and she said yes. when asked if what she is experiencing is similar to what she feels when she is anxious, pt confirmed similar s/s. will continue to monitor
[2019-10-14] MEDS: methylPREDNISolone sod succ 125mg/2ml vial IV SCH ×4 (02:24→22:06)
[2019-10-14] MEDS: LORazepam 0.5 MG tablet PO PRN (04:03)
[2019-10-14] MEDS: HYDROcodone/acetaminophen 5mg/325mg tablet PO PRN ×3 (04:57→16:11)
--- NOTE | 2019-10-14 06:20 | NUR ---
Problems reprioritized. Patient report given, questions answered & plan of care reviewed with TAYE Rodrigez.
--- NOTE | 2019-10-14 06:30 | NUR ---
Patient in room CICU 2008. I have received report from Charline KOTHARI and had the opportunity to ask questions and assume patient care.
--- NOTE | 2019-10-14 06:45 | NUR ---
IV Spreadsheet does not have intake for last 48 hours. Pump not cleared prior shift, quantity shown is 3500 ml. patient has been on maintenance fluid since 10/12/19 @ 2350 running at 125 ml/hr. Patient also received 250 ml bottle of albumin. Totals input for now. Will continue to monitor.
[2019-10-14 06:59] LABS: BASOPHILS # (AUTO) 0.1 X10'3 (0-0.2); BASOPHILS % (AUTO) 0.2 % (0-1); EOSINOPHILS % (AUTO) 0 % (0-6); HEMATOCRIT 24.5 % (35.0-45.0); HEMOGLOBIN 8.1 g/dl (12.0-16.0); LYMPHOCYTES % (AUTO) 24.6 % (21-51); MEAN CORPUSCULAR HEMOGLOBIN 32.4 PG (27.0-31.0); MEAN CORPUSCULAR HGB CONC 33.2 g/dL (33.0-36.5); MEAN CORPUSCULAR VOLUME 97.6 FL (78-98); MEAN PLATELET VOLUME 8.3 FL (7.4-10.4); MONOCYTES # (AUTO) 0.7 X10'3 (0-0.9); MONOCYTES % (AUTO) 2.8 % (2-12); NEUTROPHILS # (AUTO) 17.6 X10'3 (1.8-7.7); NEUTROPHILS % (AUTO) 72.4 % (42-75); PLATELET COUNT 227 X10'3 (140-440); RED BLOOD COUNT 2.51 X10'6 (4.20-5.60); RED CELL DISTRIBUTION WIDTH 13.9 % (11.5-14.5); WHITE BLOOD COUNT 24.3 X10'3 (4.5-11.0)
[2019-10-14 07:04] LABS: ALBUMIN 2.5 G/DL (3.4-5.0); ANION GAP 9 (8-16); BLOOD UREA NITROGEN 24 MG/DL (7-18); BUN/CREATININE RATIO 26.1 (6.6-38.0); CALCIUM 8.4 MG/DL (8.5-10.1); CHLORIDE 106 MMOL/L (99-107); CREATININE 0.92 MG/DL (0.40-0.90); GLUCOSE 251 MG/DL (70-104); MAGNESIUM 1.9 MG/DL (1.5-2.4); POTASSIUM 5.1 MMOL/L (3.5-5.1); SODIUM 137 MMOL/L (135-145); TOTAL CARBON DIOXIDE 21.8 MMOL/L (24-32); eGFR 59 ML/MIN
[2019-10-14] MEDS: Potassium Cl inj 20 MEQ in ringers solution, lacted 1,000 ML IV SCH (07:07)
[2019-10-14] MEDS: cloNIDine 0.1 mg tablet PO SCH ×2 (07:09→13:00)
[2019-10-14] MEDS: lactobacillus rhamnosus 10,000 MMU CELLS/CAPSULE PO SCH ×2 (07:13→22:06)
[2019-10-14] MEDS: pantoprazole 40mg Tablet.DR PO SCH (07:13)
[2019-10-14] MEDS: levoFLOXACIN-Levaquin 750MG/D5 150 ML IV SCH (07:24)
[2019-10-14] MEDS: apixaban 5mg tablet PO SCH ×2 (07:34→22:06)
[2019-10-14] MEDS: hydrALAZINE 25 MG tablet PO SCH ×3 (08:00→21:00)
[2019-10-14] MEDS: K and/or MAG REPLACEMENT MC SCH ×2 (08:00→19:29)
[2019-10-14] MEDS: vancomycin/NS 1 GM ADD-VANTAGE 250 ML IV SCH ×2 (08:56→22:06)
[2019-10-14] MEDS: insulin Lispro (HumaLOG) vial - multi-dose SQ SCH ×3 (09:06→19:22)
--- NOTE | 2019-10-14 09:42 | NUR ---
Notified Dr. Jasmine ordered BSS due to patient coughing after liquids and foods, -NG tube irritating patient's throat, received order to remove NG, -K 5.1 with fluids of LR 20 mEq KCL @ 125 ml/hr, received order to decrease fluids to 50 ml/hr because patient is not eating well. Patient fluid positive with low urine output, declined request for lasix and states to wait and see what decreasing fluids dose first. -Discussed BP parameter of SBP 140-[address] Holder. BP dropped from 188 to 112 after administration of clonidine. Received instruction to give lisinopril next if BP above 160s. Discussed with son that lisinorpril on patient's allergy list but she has received it here. He states that she got light headed and it was not a true allergy just a side effect. -H/H down to 8.1 from 8.[address] Holder plan for recheck or transfuse -Bleeding/drainage (serous with small areas of serosanguineous) noted on islands just distal to wound vac and down medial and lateral left leg. - Very difficult for trial paralegal to obtain blood this morning and patient's very puffy in both arms. Requested better line. Received order for midline or PICC depending on what is best for patient's needs. On Vanco Q12H and Levaquin daily. Will continue to monitor.
[2019-10-14] MEDS: clopidogrel 75mg tablet PO SCH (11:29)
--- NOTE | 2019-10-14 12:00 | NUR ---
Discussed with Dr. Holder that the patient's H/H has dropped from 8.8 to 8.1 in last 24 hours, requested Q6 Hemograms and was denied. Will continue to monitor.
[2019-10-14] MEDS: lisinopril 10 MG tablet PO SCH (14:39)
[2019-10-14 15:02] LABS: BASOPHILS # (AUTO) 0.1 X10'3 (0-0.2); BASOPHILS % (AUTO) 0.3 % (0-1); EOSINOPHILS % (AUTO) 0 % (0-6); HEMATOCRIT 22.8 % (35.0-45.0); LYMPHOCYTES # (AUTO) 4.5 X10'3 (1.1-4.8); LYMPHOCYTES % (AUTO) 20.1 % (21-51); MEAN CORPUSCULAR HEMOGLOBIN 33.4 PG (27.0-31.0); MEAN CORPUSCULAR HGB CONC 34.8 g/dL (33.0-36.5); MEAN CORPUSCULAR VOLUME 95.9 FL (78-98); MEAN PLATELET VOLUME 8.4 FL (7.4-10.4); MONOCYTES # (AUTO) 0.5 X10'3 (0-0.9); MONOCYTES % (AUTO) 2.2 % (2-12); NEUTROPHILS # (AUTO) 17.3 X10'3 (1.8-7.7); NEUTROPHILS % (AUTO) 77.4 % (42-75); PLATELET COUNT 244 X10'3 (140-440); RED BLOOD COUNT 2.38 X10'6 (4.20-5.60); RED CELL DISTRIBUTION WIDTH 13.8 % (11.5-14.5); WHITE BLOOD COUNT 22.4 X10'3 (4.5-11.0)
--- NOTE | 2019-10-14 15:25 | NUR ---
Follow up: pt s/p fempop 10/11; now with carb controlled diet. Had NG tube removed as she is swallowing better per RN at rounds. Pt documented as confused. Concerns for swallowing food, BSS is pending. No PO intake. Wound vac present to L groin. Chronic LE wounds present: DM/venous ulcers per EMR. Will diet following BSS, PO intake, and need for supplementation in view of increased protein needs r/t wound heal. Recommend: 1. carb controlled diet texture per DIE CUTTER recs 2. monitor PO and need for ONS in view of increased protein needs r/t wound heal 3. bowel care as needed 4. weight per rx Addendum: 10/14/19 at [address] Amended: Links added.
[2019-10-14 16:27] LABS: ALBUMIN 2.4 G/DL (3.4-5.0); ANION GAP 6 (8-16); BLOOD UREA NITROGEN 26 MG/DL (7-18); CALCIUM 8.4 MG/DL (8.5-10.1); CHLORIDE 107 MMOL/L (99-107); GLUCOSE 217 MG/DL (70-104); POTASSIUM 5.2 MMOL/L (3.5-5.1); SODIUM 136 MMOL/L (135-145); TOTAL CARBON DIOXIDE 23.5 MMOL/L (24-32); eGFR 53 ML/MIN
--- NOTE | 2019-10-14 18:42 | NUR ---
Problems reprioritized. Patient report given, questions answered & plan of care reviewed with Giacomo KOTHARI.
[2019-10-14] MEDS: insulin glargine (Lantus) pen - multi-dose SQ SCH (22:10)
[2019-10-15] VITALS (26 sets, daily range): BP systolic 16–185; BP diastolic 44–94
[2019-10-15] MEDS: HYDROcodone/acetaminophen 10/325mg tab PO PRN ×2 (00:06→13:58)
[2019-10-15] MEDS: cloNIDine 0.1 mg tablet PO SCH ×4 (00:06→21:10)
[2019-10-15 03:19] LABS: BASOPHILS # (AUTO) 0.1 X10'3 (0-0.2); BASOPHILS % (AUTO) 0.4 % (0-1); EOSINOPHILS % (AUTO) 0 % (0-6); HEMOGLOBIN 7.2 g/dl (12.0-16.0); LYMPHOCYTES # (AUTO) 2.9 X10'3 (1.1-4.8); LYMPHOCYTES % (AUTO) 17.1 % (21-51); MEAN CORPUSCULAR HEMOGLOBIN 32.7 PG (27.0-31.0); MEAN CORPUSCULAR HGB CONC 33.8 g/dL (33.0-36.5); MEAN CORPUSCULAR VOLUME 96.7 FL (78-98); MEAN PLATELET VOLUME 8.3 FL (7.4-10.4); MONOCYTES # (AUTO) 0.4 X10'3 (0-0.9); MONOCYTES % (AUTO) 2.6 % (2-12); NEUTROPHILS # (AUTO) 13.4 X10'3 (1.8-7.7); NEUTROPHILS % (AUTO) 79.9 % (42-75); PLATELET COUNT 195 X10'3 (140-440); RED BLOOD COUNT 2.21 X10'6 (4.20-5.60); RED CELL DISTRIBUTION WIDTH 13.4 % (11.5-14.5); WHITE BLOOD COUNT 16.8 X10'3 (4.5-11.0)
[2019-10-15 03:22] LABS: HEMATOCRIT 21.4 % (35.0-45.0)
[2019-10-15 03:29] LABS: ANION GAP 8 (8-16); BLOOD UREA NITROGEN 29 MG/DL (7-18); BUN/CREATININE RATIO 28.7 (6.6-38.0); CALCIUM 8.1 MG/DL (8.5-10.1); CHLORIDE 107 MMOL/L (99-107); CREATININE 1.01 MG/DL (0.40-0.90); GLUCOSE 177 MG/DL (70-104); MAGNESIUM 1.9 MG/DL (1.5-2.4); POTASSIUM 5.2 MMOL/L (3.5-5.1); SODIUM 138 MMOL/L (135-145); TOTAL CARBON DIOXIDE 23.4 MMOL/L (24-32); eGFR 53 ML/MIN
[2019-10-15] MEDS: methylPREDNISolone sod succ 125mg/2ml vial IV SCH ×4 (03:38→21:10)
[2019-10-15] MEDS: Potassium Cl inj 20 MEQ in ringers solution, lacted 1,000 ML IV SCH (04:14)
--- NOTE | 2019-10-15 06:30 | NUR ---
Patient in room CICU 2007. I have received report from Sandra KOTHARI and had the opportunity to ask questions and assume patient care.
[2019-10-15] MEDS: pantoprazole 40mg Tablet.DR PO SCH (07:28)
[2019-10-15] MEDS: ondansetron/PF 4mg/2ml inj IV PRN ×2 (07:28→15:52)
[2019-10-15] MEDS: K and/or MAG REPLACEMENT MC SCH ×2 (08:00→20:00)
[2019-10-15] MEDS: levoFLOXACIN-Levaquin 750MG/D5 150 ML IV SCH (09:05)
[2019-10-15] MEDS: hydrALAZINE 25 MG tablet PO SCH ×3 (09:07→21:10)
[2019-10-15] MEDS: apixaban 5mg tablet PO SCH ×2 (09:07→21:10)
[2019-10-15] MEDS: clopidogrel 75mg tablet PO SCH (09:07)
[2019-10-15] MEDS: lactobacillus rhamnosus 10,000 MMU CELLS/CAPSULE PO SCH ×2 (09:07→21:10)
[2019-10-15] MEDS: lisinopril 10 MG tablet PO SCH (09:07)
[2019-10-15] MEDS: insulin Lispro (HumaLOG) vial - multi-dose SQ SCH ×3 (09:11→19:04)
[2019-10-15] MEDS: HYDROcodone/acetaminophen 5mg/325mg tablet PO PRN (09:27)
[2019-10-15] MEDS: vancomycin/NS 1 GM ADD-VANTAGE 250 ML IV SCH ×2 (10:16→21:09)
[2019-10-15] MEDS: HYDROmorphone inj. 0.5 MG/0.5 ML DISP.SYRIN IV PRN (11:22)
--- NOTE | 2019-10-15 11:29 | NUR ---
5mg norco was given around 0900. pt continues to cry out that she is in pain. she it confused and is not able to give a number assiciated with her pain. reports pain to be in L leg.
--- NOTE | 2019-10-15 12:06 | NUR ---
Reassessment: Pt advanced to pureed/thin/carb controlled meals per FLORAL MANAGER recs PO poor 0% meals yesterday down from 50% fluctuating prior. Noted ALOC at this time shouting for help at rounds requiring reassurance. LBM 10/09; JETHRO d/w RN regarding routine bowel care. Constipation and ALOC likely impacting PO. Will continue to monitor for additional protein needs post-op. Recommend: 1. continue pureed/thin/carb controlled diet; texture per FLORAL MANAGER recs 2. monitor ONS needs in view of increased protein needs r/t wound heal 3. routine bowel care 4. weight per rx Addendum: 10/15/19 at [address] Amended: Links added.
--- NOTE | 2019-10-15 14:00 | NUR ---
Dr Holder rounded around 1400. he stated that it was okay with him if the pt was transferred to the floor.
--- NOTE | 2019-10-15 16:37 | NUR ---
dressing changes were done around 1500. Lackey 10mg was given in preparation for dressing changes. given at 1400. when pt was awoken for dressing change at 1500, she was more confused than she had been. struggled to remember where she is and what is going on. in addition she was complaining of some nausea. she handled the Lackey 5mg this morning much better. her Son called after dressing change, around 1600 and spoke with her. he was concerned regarding her increase confusion. i relayed the recent pain medication administration and the reason.
--- NOTE | 2019-10-15 18:30 | NUR ---
Problems reprioritized. Patient report given, questions answered & plan of care reviewed with Giacomo KOTHARI.
--- NOTE | 2019-10-15 19:17 | NUR ---
gave report to accepting RN Shelia. to bed 356A. patient covered for insulin post dinner fsbs 139. patient to be transferred via bed.
--- NOTE | 2019-10-15 19:21 | NUR ---
Patient in room CICU 2007. I have received report from TAYE Gooden and had the opportunity to ask questions and assume patient care.
--- NOTE | 2019-10-15 19:41 | NUR ---
pt arrived on the floor at 193 in no distress
[2019-10-15] MEDS ORDERED: lactobacillus rhamnosus 10,000 MMU CELLS/CAPSULE PO SCH (20:00)
[2019-10-15] MEDS: LORazepam 0.5 MG tablet PO PRN (21:10)
[2019-10-15] MEDS: insulin glargine (Lantus) pen - multi-dose SQ SCH (21:13)
--- NOTE | 2019-10-15 21:47 | NUR ---
diabeteic survival skills printed, pt confused unable to start education. Addendum: 10/15/19 at 2148 by Nate Cowan RN Amended: Links added.
[2019-10-16] VITALS: BP 155/60
[2019-10-16] MEDS: methylPREDNISolone sod succ 125mg/2ml vial IV SCH ×4 (03:07→19:51)
[2019-10-16 03:42] LABS: BASOPHILS # (AUTO) 0.1 X10'3 (0-0.2); BASOPHILS % (AUTO) 0.2 % (0-1); EOSINOPHILS % (AUTO) 0 % (0-6); HEMATOCRIT 27.7 % (35.0-45.0); HEMOGLOBIN 9.4 g/dl (12.0-16.0); LYMPHOCYTES # (AUTO) 4.6 X10'3 (1.1-4.8); LYMPHOCYTES % (AUTO) 21.3 % (21-51); MEAN CORPUSCULAR HEMOGLOBIN 32.9 PG (27.0-31.0); MEAN CORPUSCULAR VOLUME 96.8 FL (78-98); MEAN PLATELET VOLUME 8.4 FL (7.4-10.4); MONOCYTES # (AUTO) 0.4 X10'3 (0-0.9); MONOCYTES % (AUTO) 1.9 % (2-12); NEUTROPHILS # (AUTO) 16.7 X10'3 (1.8-7.7); NEUTROPHILS % (AUTO) 76.6 % (42-75); PLATELET COUNT 262 X10'3 (140-440); RED BLOOD COUNT 2.86 X10'6 (4.20-5.60); RED CELL DISTRIBUTION WIDTH 13.8 % (11.5-14.5); WHITE BLOOD COUNT 21.8 X10'3 (4.5-11.0)
[2019-10-16 03:47] LABS: ALBUMIN 2.1 G/DL (3.4-5.0); ANION GAP 4 (8-16); BLOOD UREA NITROGEN 32 MG/DL (7-18); BUN/CREATININE RATIO 26.9 (6.6-38.0); CALCIUM 8.4 MG/DL (8.5-10.1); CHLORIDE 107 MMOL/L (99-107); CREATININE 1.19 MG/DL (0.40-0.90); GLUCOSE 179 MG/DL (70-104); POTASSIUM 5.1 MMOL/L (3.5-5.1); SODIUM 136 MMOL/L (135-145); TOTAL CARBON DIOXIDE 24.6 MMOL/L (24-32); eGFR 44 ML/MIN
--- NOTE | 2019-10-16 07:03 | NUR ---
Patient in room [facility] 356. I have received report from Krissy KOTHARI and had the opportunity to ask questions and assume patient care.
[2019-10-16 07:44] VITALS: BP 144/74
[2019-10-16] MEDS: K and/or MAG REPLACEMENT MC SCH ×2 (08:00→20:00)
[2019-10-16] MEDS: pantoprazole 40mg Tablet.DR PO SCH (08:17)
[2019-10-16] MEDS: clopidogrel 75mg tablet PO SCH (08:17)
[2019-10-16] MEDS: apixaban 5mg tablet PO SCH ×2 (08:17→19:50)
[2019-10-16] MEDS: Potassium Cl inj 20 MEQ in ringers solution, lacted 1,000 ML IV SCH ×2 (08:17→18:31)
[2019-10-16] MEDS: hydrALAZINE 25 MG tablet PO SCH ×3 (08:17→22:43)
[2019-10-16] MEDS: levoFLOXACIN-Levaquin 750MG/D5 150 ML IV SCH (08:17)
[2019-10-16] MEDS: lisinopril 10 MG tablet PO SCH (08:18)
[2019-10-16] MEDS: cloNIDine 0.1 mg tablet PO SCH ×3 (08:18→22:43)
[2019-10-16] MEDS: lactobacillus rhamnosus 10,000 MMU CELLS/CAPSULE PO SCH ×2 (08:18→19:50)
[2019-10-16] MEDS ORDERED: VANCOMYCIN LEVEL IV ONE (08:30)
[2019-10-16] MEDS: vancomycin/NS 1 GM ADD-VANTAGE 250 ML IV SCH (09:33)
[2019-10-16] MEDS: HYDROcodone/acetaminophen 10/325mg tab PO PRN ×2 (09:35→17:55)
[2019-10-16] MEDS: insulin Lispro (HumaLOG) vial - multi-dose SQ SCH ×3 (10:04→19:49)
[2019-10-16 10:57] VITALS: BP 167/68
--- NOTE | 2019-10-16 12:00 | NUR ---
Dr. Calderon informed of left lower leg wound draining moderate amount of serosanguinous fluid and has slough in wound bed with necrotic areas. Also there is a moderate amount of serosanguinous drainage from right groin site. Dr. Calderon stated continue to monitor and he will visualize the wound tomorrow.
[2019-10-16 18:00] VITALS: BP 155/53
--- NOTE | 2019-10-16 18:00 | NUR ---
Received pt. care report from nurse Wendy KOHTARI. Care reported accepted Addendum: 10/16/19 at 2015 by Dayanara Figueroa RN Amended: Links added.
--- NOTE | 2019-10-16 19:06 | NUR ---
Problems reprioritized. Patient report given, questions answered & plan of care reviewed with Dayanara KOTHARI.
[2019-10-16] MEDS: insulin glargine (Lantus) pen - multi-dose SQ SCH (22:42)
[2019-10-16] MEDS: VANCOMYCIN 750MG IV in NS 250 ML IV SCH (22:43)
[2019-10-16] MEDS: HYDROcodone/acetaminophen 5mg/325mg tablet PO PRN (23:52)
[2019-10-17] VITALS: BP 135/55
[2019-10-17] MEDS: methylPREDNISolone sod succ 125mg/2ml vial IV SCH ×4 (04:29→21:43)
--- NOTE | 2019-10-17 04:41 | NUR ---
Patient on LR with K= 20meq at 50ml/hr via IV infusion. Addendum: 10/17/19 at 0444 by Dayanara Figueroa RN Amended: Links added.
--- NOTE | 2019-10-17 05:00 | NUR ---
Patient report given to day shift nurse Jesus KOTHARI. Care f/u needs discussed with Jesus KOTHARI. Addendum: 10/17/19 at 0739 by Dayanara Figueroa RN Amended: Links added.
--- NOTE | 2019-10-17 06:30 | NUR ---
Patient in room [facility] 356. I have received report from Dayanara KOTHARI and had the opportunity to ask questions and assume patient care.
[2019-10-17 07:00] VITALS: BP 174/73
[2019-10-17] MEDS: K and/or MAG REPLACEMENT MC SCH ×2 (08:00→20:00)
[2019-10-17] MEDS: pantoprazole 40mg Tablet.DR PO SCH (08:54)
[2019-10-17] MEDS: hydrALAZINE 25 MG tablet PO SCH ×3 (08:54→21:51)
[2019-10-17] MEDS: VANCOMYCIN 750MG IV in NS 250 ML IV SCH ×2 (08:54→21:49)
[2019-10-17] MEDS: clopidogrel 75mg tablet PO SCH (08:54)
[2019-10-17] MEDS: lactobacillus rhamnosus 10,000 MMU CELLS/CAPSULE PO SCH ×2 (08:54→21:51)
[2019-10-17] MEDS: lisinopril 10 MG tablet PO SCH (08:54)
[2019-10-17] MEDS: apixaban 5mg tablet PO SCH ×2 (08:54→21:52)
[2019-10-17] MEDS: cloNIDine 0.1 mg tablet PO SCH ×3 (08:54→21:51)
[2019-10-17] MEDS: insulin Lispro (HumaLOG) vial - multi-dose SQ SCH ×2 (09:13→18:47)
[2019-10-17 11:30] VITALS: BP 108/45
[2019-10-17] MEDS: HYDROcodone/acetaminophen 5mg/325mg tablet PO PRN ×3 (11:37→21:11)
--- NOTE | 2019-10-17 13:00 | NUR ---
Patient blood pressure was just at the level to hold the blood Addendum: 10/17/19 at 1445 by Jaden Longoria RN the patients blood pressure medication upon giving patient pain medication. Will continue to monitor patients blood pressure.
[2019-10-17 17:40] LABS: BASOPHILS # (AUTO) 0.1 X10'3 (0-0.2); BASOPHILS % (AUTO) 0.4 % (0-1); EOSINOPHILS % (AUTO) 0 % (0-6); LYMPHOCYTES # (AUTO) 7.8 X10'3 (1.1-4.8); LYMPHOCYTES % (AUTO) 25.3 % (21-51); MEAN CORPUSCULAR HEMOGLOBIN 33.1 PG (27.0-31.0); MEAN CORPUSCULAR HGB CONC 34.4 g/dL (33.0-36.5); MEAN CORPUSCULAR VOLUME 96.2 FL (78-98); MONOCYTES # (AUTO) 0.7 X10'3 (0-0.9); MONOCYTES % (AUTO) 2.3 % (2-12); NEUTROPHILS # (AUTO) 22.1 X10'3 (1.8-7.7); PLATELET COUNT 409 X10'3 (140-440); RED BLOOD COUNT 3.33 X10'6 (4.20-5.60); RED CELL DISTRIBUTION WIDTH 13.8 % (11.5-14.5)
[2019-10-17 17:45] LABS: WHITE BLOOD COUNT 30.7 X10'3 (4.5-11.0)
[2019-10-17 17:50] LABS: ALBUMIN 2.1 G/DL (3.4-5.0); ANION GAP 6 (8-16); BLOOD UREA NITROGEN 41 MG/DL (7-18); BUN/CREATININE RATIO 30.4 (6.6-38.0); CHLORIDE 105 MMOL/L (99-107); CREATININE 1.35 MG/DL (0.40-0.90); GLUCOSE 166 MG/DL (70-104); POTASSIUM 5.3 MMOL/L (3.5-5.1); SODIUM 134 MMOL/L (135-145); TOTAL CARBON DIOXIDE 23.3 MMOL/L (24-32); eGFR 38 ML/MIN
[2019-10-17 17:59] LABS: PLATELET ESTIMATE NORMAL; TOTAL CELLS COUNTED 100
--- NOTE | 2019-10-17 19:04 | NUR ---
Problems reprioritized. Patient report given, questions answered & plan of care reviewed with Roopa KOTHARI.
--- NOTE | 2019-10-17 19:05 | NUR ---
Patient in room [facility] 356. I have received report from RANDALL KOTHARI and had the opportunity to ask questions and assume patient care.
[2019-10-17 20:00] VITALS: BP 149/72
[2019-10-17] MEDS: insulin glargine (Lantus) pen - multi-dose SQ SCH (22:03)
[2019-10-18] VITALS: BP 142/63
[2019-10-18] MEDS: methylPREDNISolone sod succ 125mg/2ml vial IV SCH ×2 (03:06→09:33)
--- NOTE | 2019-10-18 06:10 | NUR ---
Patient in room [facility] 356. I have received report from Soumya Dooley RN and had the opportunity to ask questions and assume patient care.
[2019-10-18 06:13] LABS: BASOPHILS # (AUTO) 0.1 X10'3 (0-0.2); BASOPHILS % (AUTO) 0.2 % (0-1); EOSINOPHILS % (AUTO) 0 % (0-6); HEMATOCRIT 31.6 % (35.0-45.0); HEMOGLOBIN 10.7 g/dl (12.0-16.0); LYMPHOCYTES # (AUTO) 8.5 X10'3 (1.1-4.8); LYMPHOCYTES % (AUTO) 27.1 % (21-51); MEAN CORPUSCULAR HEMOGLOBIN 32.3 PG (27.0-31.0); MEAN CORPUSCULAR HGB CONC 33.8 g/dL (33.0-36.5); MEAN CORPUSCULAR VOLUME 95.5 FL (78-98); MONOCYTES # (AUTO) 0.7 X10'3 (0-0.9); MONOCYTES % (AUTO) 2.3 % (2-12); NEUTROPHILS # (AUTO) 22.2 X10'3 (1.8-7.7); NEUTROPHILS % (AUTO) 70.4 % (42-75); PLATELET COUNT 432 X10'3 (140-440); RED BLOOD COUNT 3.31 X10'6 (4.20-5.60); RED CELL DISTRIBUTION WIDTH 13.5 % (11.5-14.5)
[2019-10-18 06:30] VITALS: BP 163/71
--- NOTE | 2019-10-18 06:30 | NUR ---
Problems reprioritized. Patient report given, questions answered & plan of care reviewed with SARMAD RN.
[2019-10-18 07:41] LABS: PLATELET ESTIMATE NORMAL; TOTAL CELLS COUNTED 100
[2019-10-18] MEDS: HYDROcodone/acetaminophen 10/325mg tab PO PRN ×2 (07:56→12:17)
[2019-10-18] MEDS ORDERED: magnesium hydroxide 30ml (MOM) UD suspension PO PRN (08:20)
[2019-10-18] MEDS ORDERED: methylnaltrexone br 12mg/0.6ml inj***SubQ only SQ ONE (08:20)
[2019-10-18] MEDS ORDERED: VANCOMYCIN LEVEL IV ONE (08:30)
[2019-10-18 08:34] LABS: WHITE BLOOD COUNT 31.5 X10'3 (4.5-11.0)
[2019-10-18] MEDS: lactobacillus rhamnosus 10,000 MMU CELLS/CAPSULE PO SCH ×2 (09:32→20:53)
[2019-10-18] MEDS: pantoprazole 40mg Tablet.DR PO SCH (09:32)
[2019-10-18] MEDS: lisinopril 10 MG tablet PO SCH (09:32)
[2019-10-18] MEDS: apixaban 5mg tablet PO SCH ×2 (09:32→20:53)
[2019-10-18] MEDS: hydrALAZINE 25 MG tablet PO SCH ×3 (09:32→20:53)
[2019-10-18] MEDS: cloNIDine 0.1 mg tablet PO SCH ×3 (09:33→20:53)
[2019-10-18] MEDS: levoFLOXACIN-Levaquin 750MG/D5 150 ML IV SCH (09:34)
[2019-10-18] MEDS: clopidogrel 75mg tablet PO SCH (09:35)
[2019-10-18 10:11] LABS: ALANINE AMINOTRANSFERASE 24 U/L (12-78); ALBUMIN/GLOBULIN RATIO 0.8 (1.1-1.5); ALKALINE PHOSPHATASE 48 IU/L (46-116); ANION GAP 4 (8-16); ASPARTATE AMINO TRANSFERASE 15 U/L (10-37); BILIRUBIN,TOTAL 0.7 MG/DL (0.1-1.0); BLOOD UREA NITROGEN 40 MG/DL (7-18); BUN/CREATININE RATIO 29.9 (6.6-38.0); CHLORIDE 106 MMOL/L (99-107); CREATININE 1.34 MG/DL (0.40-0.90); GLUCOSE 169 MG/DL (70-104); POTASSIUM 5.2 MMOL/L (3.5-5.1); SODIUM 135 MMOL/L (135-145); TOTAL CARBON DIOXIDE 25.3 MMOL/L (24-32); TOTAL PROTEIN 4.4 G/DL (6.4-8.2); eGFR 38 ML/MIN
[2019-10-18 10:16] LABS: VANCOMYCIN,TROUGH 22.6 UG/ML (6.0-14.0)
[2019-10-18] MEDS: K and/or MAG REPLACEMENT MC SCH ×2 (11:01→20:00)
[2019-10-18] MEDS: VANCOMYCIN 750MG IV in NS 250 ML IV SCH ×2 (11:11→20:54)
[2019-10-18] MEDS ORDERED: HYDROmorphone inj. 0.5 MG/0.5 ML DISP.SYRIN IV PRN (12:15)
[2019-10-18 12:25] VITALS: BP 147/61
[2019-10-18] MEDS: methylPREDNISolone sod succ/PF 40mg inj. IV SCH ×2 (13:35→20:51)
[2019-10-18] MEDS: insulin Lispro (HumaLOG) vial - multi-dose SQ SCH ×2 (14:09→18:31)
--- NOTE | 2019-10-18 16:02 | NUR ---
Reassessment: Poor intake x1 week, diet order pureed/thin/carb controlled meals per ASSAYER HELPER rec. Per nursing documentation pt is confused. LBM 10/09; RD d/w RN regarding routine bowel care, does have prn colace and milk of mag, not given, this was discussed with RN including recommendation for routine bowel care. Constipation and ALOC likely impacting PO. Recommend providing oral nutrition supplementation with Ensure Enlive at lunch and Moses smoothie with breakfast and dinner to support wound healing needs and energy needs, this was discussed with RN and written recommendation provided to d/w MD. Will continue to monitor for additional protein needs post-op. Recommend: 1. continue pureed/thin/carb controlled diet; texture per ASSAYER HELPER recs 2. Recommend Ensure Enlive with lunch and Moses Smoothie with breakfast and dinner 3. routine bowel care, pt is constipated no BM 8 days 4. weight per rx Addendum: 10/18/19 at [address] Amended: Links added.
--- NOTE | 2019-10-18 18:20 | NUR ---
Problems reprioritized. Patient report given, questions answered & plan of care reviewed with TAYE Martin.
--- NOTE | 2019-10-18 18:48 | NUR ---
Patient in room [facility] 356. I have received report from Bridget KOTHARI and had the opportunity to ask questions and assume patient care.
[2019-10-18 19:39] VITALS: BP 164/70
[2019-10-18] MEDS: insulin glargine (Lantus) pen - multi-dose SQ SCH (21:02)
[2019-10-18] MEDS: HYDROcodone/acetaminophen 5mg/325mg tablet PO PRN (23:33)
[2019-10-19] VITALS: BP 158/53
[2019-10-19] MEDS: methylPREDNISolone sod succ/PF 40mg inj. IV SCH ×4 (02:14→19:37)
[2019-10-19] MEDS: HYDROcodone/acetaminophen 5mg/325mg tablet PO PRN ×3 (03:44→19:38)
--- NOTE | 2019-10-19 06:25 | NUR ---
Problems reprioritized. Patient report given, questions answered & plan of care reviewed with Yolanda KOTHARI.
[2019-10-19 07:00] VITALS: BP 152/57
[2019-10-19] MEDS: apixaban 5mg tablet PO SCH ×2 (07:41→19:37)
[2019-10-19] MEDS: clopidogrel 75mg tablet PO SCH (07:41)
[2019-10-19] MEDS: lactobacillus rhamnosus 10,000 MMU CELLS/CAPSULE PO SCH ×2 (07:41→19:37)
[2019-10-19] MEDS: hydrALAZINE 25 MG tablet PO SCH ×3 (07:41→21:55)
[2019-10-19] MEDS: cloNIDine 0.1 mg tablet PO SCH ×3 (07:41→21:55)
[2019-10-19] MEDS: pantoprazole 40mg Tablet.DR PO SCH (07:41)
[2019-10-19] MEDS: lisinopril 10 MG tablet PO SCH (07:41)
[2019-10-19] MEDS: K and/or MAG REPLACEMENT MC SCH ×2 (08:00→20:00)
[2019-10-19 08:29] LABS: BASOPHILS % (AUTO) 0.1 % (0-1); EOSINOPHILS % (AUTO) 0.1 % (0-6); HEMOGLOBIN 10.8 g/dl (12.0-16.0); LYMPHOCYTES # (AUTO) 10.5 X10'3 (1.1-4.8); LYMPHOCYTES % (AUTO) 31.6 % (21-51); MEAN CORPUSCULAR HEMOGLOBIN 32.1 PG (27.0-31.0); MEAN CORPUSCULAR HGB CONC 33.6 g/dL (33.0-36.5); MEAN CORPUSCULAR VOLUME 95.7 FL (78-98); MEAN PLATELET VOLUME 7.8 FL (7.4-10.4); MONOCYTES # (AUTO) 0.9 X10'3 (0-0.9); MONOCYTES % (AUTO) 2.8 % (2-12); NEUTROPHILS # (AUTO) 21.6 X10'3 (1.8-7.7); NEUTROPHILS % (AUTO) 65.4 % (42-75); PLATELET COUNT 454 X10'3 (140-440); RED BLOOD COUNT 3.35 X10'6 (4.20-5.60); RED CELL DISTRIBUTION WIDTH 13.7 % (11.5-14.5)
[2019-10-19] MEDS ORDERED: VANCOMYCIN LEVEL IV ONE (08:30)
[2019-10-19 08:43] LABS: WHITE BLOOD COUNT 33.1 X10'3 (4.5-11.0)
[2019-10-19 08:44] LABS: ALANINE AMINOTRANSFERASE 22 U/L (12-78); ALBUMIN 1.8 G/DL (3.4-5.0); ALBUMIN/GLOBULIN RATIO 0.8 (1.1-1.5); ALKALINE PHOSPHATASE 44 IU/L (46-116); ANION GAP 8 (8-16); ASPARTATE AMINO TRANSFERASE 14 U/L (10-37); BILIRUBIN,TOTAL 0.7 MG/DL (0.1-1.0); BLOOD UREA NITROGEN 42 MG/DL (7-18); BUN/CREATININE RATIO 35.3 (6.6-38.0); CALCIUM 6.9 MG/DL (8.5-10.1); CHLORIDE 108 MMOL/L (99-107); CREATININE 1.19 MG/DL (0.40-0.90); GLUCOSE 94 MG/DL (70-104); SODIUM 138 MMOL/L (135-145); TOTAL CARBON DIOXIDE 22.1 MMOL/L (24-32); eGFR 44 ML/MIN
[2019-10-19 08:47] LABS: VANCOMYCIN,TROUGH 23.5 UG/ML (6.0-14.0)
[2019-10-19] MEDS: vancomycin inj 500 MG in normal saline 100ml IV soln 100 ML IV SCH ×2 (11:07→23:32)
[2019-10-19 11:37] LABS: TOTAL CELLS COUNTED 100
[2019-10-19 11:38] LABS: PLATELET ESTIMATE NORMAL
[2019-10-19 11:45] LABS: SMUDGE CELLS 3+
[2019-10-19 11:49] VITALS: BP 121/95
[2019-10-19 13:40] VITALS: BP 143/102
--- NOTE | 2019-10-19 14:02 | NUR ---
Follow up 10/18: still not eating well. No BM yet. Will offer prune juice with meals. Addendum: 10/19/19 at [address] Amended: Links added.
[2019-10-19] MEDS: ondansetron/PF 4mg/2ml inj IV PRN (14:22)
[2019-10-19 15:15] VITALS: BP 152/48
[2019-10-19] MEDS: furosemide 40mg/4ml inj IV SCH (15:24)
[2019-10-19] MEDS: JUVEN Smoothie Arginine/Glut./Ca2+Bmb (Juven 19.3pkt) 240ml cup PO SCH (17:50)
--- NOTE | 2019-10-19 18:26 | NUR ---
Problems reprioritized. Patient report given, questions answered & plan of care reviewed with TAYE Martin.
--- NOTE | 2019-10-19 18:34 | NUR ---
Patient in room [facility] 356. I have received report from Yolanda KOTHARI and had the opportunity to ask questions and assume patient care. Pt sitting up in bed eating dinner with assistance. No signs of distress, will continue to monitor.
[2019-10-19] MEDS: insulin Lispro (HumaLOG) vial - multi-dose SQ SCH ×2 (18:52→21:52)
[2019-10-19 20:00] VITALS: BP 143/55
[2019-10-19] MEDS ORDERED: magnesium citrate 296ml oral solution PO ONE (21:25)
[2019-10-19] MEDS: insulin glargine (Lantus) pen - multi-dose SQ SCH (21:53)
[2019-10-20] VITALS: BP 150/55
[2019-10-20] MEDS: methylPREDNISolone sod succ/PF 40mg inj. IV SCH ×3 (03:11→13:37)
[2019-10-20 04:20] LABS: BASOPHILS # (AUTO) 0.3 X10'3 (0-0.2); BASOPHILS % (AUTO) 0.6 % (0-1); EOSINOPHILS % (AUTO) 0 % (0-6); HEMATOCRIT 36.6 % (35.0-45.0); HEMOGLOBIN 12.2 g/dl (12.0-16.0); LYMPHOCYTES # (AUTO) 12.3 X10'3 (1.1-4.8); MEAN CORPUSCULAR HEMOGLOBIN 32.2 PG (27.0-31.0); MEAN CORPUSCULAR HGB CONC 33.4 g/dL (33.0-36.5); MEAN CORPUSCULAR VOLUME 96.6 FL (78-98); MEAN PLATELET VOLUME 7.8 FL (7.4-10.4); MONOCYTES # (AUTO) 0.9 X10'3 (0-0.9); MONOCYTES % (AUTO) 2.2 % (2-12); NEUTROPHILS # (AUTO) 28.9 X10'3 (1.8-7.7); NEUTROPHILS % (AUTO) 68.2 % (42-75); PLATELET COUNT 531 X10'3 (140-440); RED BLOOD COUNT 3.78 X10'6 (4.20-5.60); RED CELL DISTRIBUTION WIDTH 13.6 % (11.5-14.5)
[2019-10-20 04:26] LABS: WHITE BLOOD COUNT 42.5 X10'3 (4.5-11.0)
[2019-10-20 04:29] LABS: ALANINE AMINOTRANSFERASE 48 U/L (12-78); ALBUMIN 2.1 G/DL (3.4-5.0); ALBUMIN/GLOBULIN RATIO 0.8 (1.1-1.5); ALKALINE PHOSPHATASE 54 IU/L (46-116); ANION GAP 5 (8-16); ASPARTATE AMINO TRANSFERASE 41 U/L (10-37); BILIRUBIN,TOTAL 0.7 MG/DL (0.1-1.0); BLOOD UREA NITROGEN 60 MG/DL (7-18); CALCIUM 7.9 MG/DL (8.5-10.1); CHLORIDE 103 MMOL/L (99-107); GLUCOSE 226 MG/DL (70-104); POTASSIUM 5.3 MMOL/L (3.5-5.1); SODIUM 133 MMOL/L (135-145); TOTAL CARBON DIOXIDE 25.2 MMOL/L (24-32); TOTAL PROTEIN 4.6 G/DL (6.4-8.2); eGFR 33 ML/MIN
[2019-10-20 04:34] LABS: TOTAL CELLS COUNTED 100
[2019-10-20 04:35] LABS: PLATELET ESTIMATE INCREASED
--- NOTE | 2019-10-20 06:44 | NUR ---
Problems reprioritized. Patient report given, questions answered & plan of care reviewed with Noemi KOTHARI.
[2019-10-20 07:07] VITALS: BP 181/69
[2019-10-20] MEDS: JUVEN Smoothie Arginine/Glut./Ca2+Bmb (Juven 19.3pkt) 240ml cup PO SCH ×2 (07:30→17:53)
[2019-10-20] MEDS: K and/or MAG REPLACEMENT MC SCH ×2 (08:00→20:00)
[2019-10-20] MEDS: levoFLOXACIN-Levaquin 750MG/D5 150 ML IV SCH (08:09)
[2019-10-20] MEDS: cloNIDine 0.1 mg tablet PO SCH ×3 (08:11→20:45)
[2019-10-20] MEDS: hydrALAZINE 25 MG tablet PO SCH ×3 (08:11→20:45)
[2019-10-20] MEDS: furosemide 40mg/4ml inj IV SCH (08:11)
[2019-10-20] MEDS: pantoprazole 40mg Tablet.DR PO SCH (08:11)
[2019-10-20] MEDS: clopidogrel 75mg tablet PO SCH (08:12)
[2019-10-20] MEDS: apixaban 5mg tablet PO SCH ×2 (08:12→20:45)
[2019-10-20] MEDS: lisinopril 10 MG tablet PO SCH (08:12)
[2019-10-20] MEDS: lactobacillus rhamnosus 10,000 MMU CELLS/CAPSULE PO SCH ×2 (08:12→20:45)
[2019-10-20] MEDS: insulin Lispro (HumaLOG) vial - multi-dose SQ SCH ×3 (10:32→21:23)
[2019-10-20] MEDS: vancomycin inj 500 MG in normal saline 100ml IV soln 100 ML IV SCH (11:37)
[2019-10-20] MEDS: HYDROcodone/acetaminophen 5mg/325mg tablet PO PRN (12:06)
[2019-10-20] MEDS: lactose-reduced food (Ensure Enlive) - 237ml bottle PO SCH (12:50)
[2019-10-20 13:21] VITALS: BP 122/62
--- NOTE | 2019-10-20 18:42 | NUR ---
Problems reprioritized. Patient report given, questions answered & plan of care reviewed with TAYE Martin.
--- NOTE | 2019-10-20 19:13 | NUR ---
Patient in room [facility] 356. I have received report from Noemi KOTHARI and had the opportunity to ask questions and assume patient care.
[2019-10-20 20:00] VITALS: BP 113/59
[2019-10-20 20:39] LABS: CLARITY,URINE CLEAR (Clear); COLOR,URINE YELLOW (Yellow); GLUCOSE, URINE NEGATIVE (Neg); KETONES,URINE NEGATIVE (Neg); LEUKOCYTE ESTERASE ,URINE NEGATIVE (Neg); NITRITES, URINE NEGATIVE (Neg); OCCULT BLOOD,URINE SMALL (Neg); PH,URINE 5.5 (4.8-8.0); PROTEIN,URINE NEGATIVE (Neg); UROBILINOGEN,URINE 0.2 E.U/dL (0.2-1.0)
[2019-10-20 20:40] LABS: UA COLLECTION TYPE FOLEY CATH
[2019-10-20 20:44] LABS: BACTERIA,URINE NONE SEEN /HPF (Neg); SQUAMOUS EPITHELIAL CELL,UR FEW /LPF (FEW); WBC,URINE NONE SEEN /HPF (0-4)
[2019-10-20] MEDS: clotrimazole 10mg troche MM SCH (20:45)
[2019-10-20] MEDS: insulin glargine (Lantus) pen - multi-dose SQ SCH (21:25)
[2019-10-20] MEDS ORDERED: VANCOMYCIN LEVEL IV ONE (22:30)
[2019-10-21] VITALS: BP 158/55
[2019-10-21] MEDS ORDERED: vancomycin inj 500 MG in normal saline 100ml IV soln 100 ML IV ONE (01:10)
[2019-10-21] MEDS: clotrimazole 10mg troche MM SCH ×3 (01:19→10:00)
[2019-10-21 03:56] LABS: ALANINE AMINOTRANSFERASE 31 U/L (12-78); ALBUMIN 1.9 G/DL (3.4-5.0); ALBUMIN/GLOBULIN RATIO 0.9 (1.1-1.5); ALKALINE PHOSPHATASE 44 IU/L (46-116); ANION GAP 2 (8-16); ASPARTATE AMINO TRANSFERASE 13 U/L (10-37); BILIRUBIN,TOTAL 0.7 MG/DL (0.1-1.0); BLOOD UREA NITROGEN 64 MG/DL (7-18); CALCIUM 7.7 MG/DL (8.5-10.1); CHLORIDE 105 MMOL/L (99-107); CREATININE 1.39 MG/DL (0.40-0.90); GLUCOSE 178 MG/DL (70-104); POTASSIUM 5.5 MMOL/L (3.5-5.1); SODIUM 134 MMOL/L (135-145); TOTAL CARBON DIOXIDE 26.7 MMOL/L (24-32); TOTAL PROTEIN 4.1 G/DL (6.4-8.2); eGFR 36 ML/MIN
--- NOTE | 2019-10-21 06:34 | NUR ---
Problems reprioritized. Patient report given, questions answered & plan of care reviewed with Gisel KOTHARI.
--- NOTE | 2019-10-21 06:58 | NUR ---
Patient in room [facility] 356. I have received report from TAYE Martin and had the opportunity to ask questions and assume patient care.
[2019-10-21 07:00] VITALS: BP 149/54
[2019-10-21] MEDS: JUVEN Smoothie Arginine/Glut./Ca2+Bmb (Juven 19.3pkt) 240ml cup PO SCH ×2 (07:30→17:32)
[2019-10-21] MEDS: K and/or MAG REPLACEMENT MC SCH ×2 (08:00→20:00)
[2019-10-21] MEDS: clopidogrel 75mg tablet PO SCH (08:43)
[2019-10-21] MEDS: cloNIDine 0.1 mg tablet PO SCH ×3 (08:43→20:47)
[2019-10-21] MEDS: furosemide 40mg/4ml inj IV SCH (08:44)
[2019-10-21] MEDS: lisinopril 10 MG tablet PO SCH (08:44)
[2019-10-21] MEDS: hydrALAZINE 25 MG tablet PO SCH ×3 (08:44→20:47)
[2019-10-21] MEDS: lactobacillus rhamnosus 10,000 MMU CELLS/CAPSULE PO SCH ×2 (08:44→20:47)
[2019-10-21] MEDS: apixaban 5mg tablet PO SCH ×2 (08:44→20:46)
[2019-10-21] MEDS: pantoprazole 40mg Tablet.DR PO SCH (08:47)
[2019-10-21] MEDS: HYDROcodone/acetaminophen 5mg/325mg tablet PO PRN (08:52)
[2019-10-21] MEDS: insulin Lispro (HumaLOG) vial - multi-dose SQ SCH ×2 (09:07→14:20)
[2019-10-21 11:20] LABS: BASOPHILS # (AUTO) 0.1 X10'3 (0-0.2); BASOPHILS % (AUTO) 0.2 % (0-1); EOSINOPHILS % (AUTO) 0.1 % (0-6); HEMATOCRIT 30.2 % (35.0-45.0); HEMOGLOBIN 10.2 g/dl (12.0-16.0); LYMPHOCYTES % (AUTO) 28.3 % (21-51); MEAN CORPUSCULAR HEMOGLOBIN 32.2 PG (27.0-31.0); MEAN CORPUSCULAR HGB CONC 33.7 g/dL (33.0-36.5); MEAN CORPUSCULAR VOLUME 95.6 FL (78-98); MEAN PLATELET VOLUME 7.7 FL (7.4-10.4); MONOCYTES # (AUTO) 0.9 X10'3 (0-0.9); MONOCYTES % (AUTO) 2.7 % (2-12); NEUTROPHILS # (AUTO) 24.2 X10'3 (1.8-7.7); NEUTROPHILS % (AUTO) 68.7 % (42-75); PLATELET COUNT 407 X10'3 (140-440); RED BLOOD COUNT 3.16 X10'6 (4.20-5.60); RED CELL DISTRIBUTION WIDTH 13.6 % (11.5-14.5)
[2019-10-21 11:22] LABS: WHITE BLOOD COUNT 35.2 X10'3 (4.5-11.0)
--- NOTE | 2019-10-21 11:24 | NUR ---
WBC = 35.2 per engineer geophysical laboratorytech. Gisel RN notified.
[2019-10-21 11:43] LABS: ALANINE AMINOTRANSFERASE 29 U/L (12-78); ALBUMIN 1.9 G/DL (3.4-5.0); ALBUMIN/GLOBULIN RATIO 0.9 (1.1-1.5); ALKALINE PHOSPHATASE 46 IU/L (46-116); ANION GAP 5 (8-16); ASPARTATE AMINO TRANSFERASE 11 U/L (10-37); BILIRUBIN,TOTAL 0.6 MG/DL (0.1-1.0); BLOOD UREA NITROGEN 64 MG/DL (7-18); BUN/CREATININE RATIO 47.8 (6.6-38.0); CALCIUM 7.7 MG/DL (8.5-10.1); CHLORIDE 105 MMOL/L (99-107); CREATININE 1.34 MG/DL (0.40-0.90); GLUCOSE 152 MG/DL (70-104); MAGNESIUM 2.8 MG/DL (1.5-2.4); PHOSPHORUS 3.4 MG/DL (2.3-4.5); POTASSIUM 5.1 MMOL/L (3.5-5.1); SODIUM 136 MMOL/L (135-145); TOTAL CARBON DIOXIDE 25.6 MMOL/L (24-32); TOTAL CELLS COUNTED 100; TOTAL PROTEIN 4.1 G/DL (6.4-8.2); eGFR 38 ML/MIN
[2019-10-21 11:45] LABS: PLATELET ESTIMATE NORMAL; SMUDGE CELLS 1+; TOXIC GRANULATION 1+
[2019-10-21 12:00] VITALS: BP 134/63
--- NOTE | 2019-10-21 12:10 | NUR ---
Reassessment: Patient's PO intake slowly improving, averaging 25-50% PO intake of meals since dinner 10/18. Pt also receiving Moses smoothie BIDBD and documented to be consuming 75-100% of ONS BIDBD. Pt remains A/O x 1 and confused per physical assessment, likely impacting PO intake, although noted that pt documented to be receiving assistance with meals. Pt with sore and dry mouth per MD notes, also likely impacting PO intake. LBM 10/19 documented as moderate. Infectious disease consult in place d/t elevating white count per MD notes. Will continue to follow closely. Recommend: 1. continue pureed/thin/carb controlled diet; texture per MOOSE HUNTER recs 2. Encourage PO intake, assist with meals 3. Ensure Enlive q lunch and Moses Smoothie BIDBD 4. routine bowel care 5. weight per rx Addendum: 10/21/19 at [address] Amended: Links added.
--- NOTE | 2019-10-21 12:16 | NUR ---
Dressing to left lower extremity changed per wound care recommendations. Pt tolerated well. Will continue to monitor.
[2019-10-21] MEDS: lactose-reduced food (Ensure Enlive) - 237ml bottle PO SCH (12:36)
--- NOTE | 2019-10-21 13:00 | NUR ---
Dr Holder notified of absent doppler pulse to right dorsalis pedis. No new orders received. Will continue to monitor.
[2019-10-21] MEDS: nystatin 500,000 unit/5ML UD oral suspension PO SCH ×2 (14:18→20:46)
[2019-10-21] MEDS: vancomycin inj 500 MG in normal saline 100ml IV soln 100 ML IV SCH (14:21)
[2019-10-21 14:42] VITALS: BP 154/62
--- NOTE | 2019-10-21 18:30 | NUR ---
Patient in room [facility] 356. I have received report from ISADORA KOTHARI and had the opportunity to ask questions and assume patient care.
[2019-10-21 20:00] VITALS: BP 155/64
[2019-10-21] MEDS: insulin glargine (Lantus) pen - multi-dose SQ SCH (21:00)
[2019-10-22] VITALS: BP 107/57
[2019-10-22] MEDS: HYDROcodone/acetaminophen 5mg/325mg tablet PO PRN (00:33)
[2019-10-22] MEDS: vancomycin inj 500 MG in normal saline 100ml IV soln 100 ML IV SCH ×2 (01:11→13:00)
[2019-10-22 06:20] LABS: BASOPHILS # (AUTO) 0.1 X10'3 (0-0.2); BASOPHILS % (AUTO) 0.2 % (0-1); EOSINOPHILS # (AUTO) 0.1 X10'3 (0-0.9); EOSINOPHILS % (AUTO) 0.2 % (0-6); HEMATOCRIT 27.3 % (35.0-45.0); HEMOGLOBIN 9.1 g/dl (12.0-16.0); LYMPHOCYTES # (AUTO) 8.7 X10'3 (1.1-4.8); LYMPHOCYTES % (AUTO) 25.4 % (21-51); MEAN CORPUSCULAR HGB CONC 33.5 g/dL (33.0-36.5); MEAN CORPUSCULAR VOLUME 95.6 FL (78-98); MEAN PLATELET VOLUME 7.7 FL (7.4-10.4); MONOCYTES # (AUTO) 0.9 X10'3 (0-0.9); MONOCYTES % (AUTO) 2.7 % (2-12); NEUTROPHILS # (AUTO) 24.5 X10'3 (1.8-7.7); NEUTROPHILS % (AUTO) 71.5 % (42-75); PLATELET COUNT 316 X10'3 (140-440); RED BLOOD COUNT 2.85 X10'6 (4.20-5.60); RED CELL DISTRIBUTION WIDTH 13.5 % (11.5-14.5)
[2019-10-22 06:23] LABS: WHITE BLOOD COUNT 34.3 X10'3 (4.5-11.0)
--- NOTE | 2019-10-22 06:23 | NUR ---
Problems reprioritized. Patient report given, questions answered & plan of care reviewed with ISADORA KOTHARI.
--- NOTE | 2019-10-22 06:30 | NUR ---
Patient in room [facility] 356. I have received report from TAYE Blas and had the opportunity to ask questions and assume patient care.
[2019-10-22 06:34] LABS: ALANINE AMINOTRANSFERASE 23 U/L (12-78); ALBUMIN 1.9 G/DL (3.4-5.0); ALKALINE PHOSPHATASE 45 IU/L (46-116); ANION GAP 0 (8-16); ASPARTATE AMINO TRANSFERASE 13 U/L (10-37); BILIRUBIN,TOTAL 0.8 MG/DL (0.1-1.0); BLOOD UREA NITROGEN 61 MG/DL (7-18); BUN/CREATININE RATIO 48.4 (6.6-38.0); CALCIUM 7.5 MG/DL (8.5-10.1); CHLORIDE 108 MMOL/L (99-107); CREATININE 1.26 MG/DL (0.40-0.90); GLUCOSE 108 MG/DL (70-104); MAGNESIUM 2.9 MG/DL (1.5-2.4); PHOSPHORUS 3.9 MG/DL (2.3-4.5); SODIUM 136 MMOL/L (135-145); TOTAL CARBON DIOXIDE 28.3 MMOL/L (24-32); TOTAL PROTEIN 3.9 G/DL (6.4-8.2); eGFR 41 ML/MIN
[2019-10-22 07:00] VITALS: BP 126/51
[2019-10-22 07:00] LABS: TOTAL CELLS COUNTED 100
[2019-10-22 07:01] LABS: ELLIPTOCYTES 1+; PLATELET ESTIMATE NORMAL; TOXIC GRANULATION 2+
[2019-10-22] MEDS: JUVEN Smoothie Arginine/Glut./Ca2+Bmb (Juven 19.3pkt) 240ml cup PO SCH ×2 (07:30→17:59)
[2019-10-22] MEDS: lisinopril 10 MG tablet PO SCH (08:00)
[2019-10-22] MEDS: hydrALAZINE 25 MG tablet PO SCH ×3 (08:00→20:38)
[2019-10-22] MEDS: K and/or MAG REPLACEMENT MC SCH ×2 (08:00→20:00)
[2019-10-22] MEDS: cloNIDine 0.1 mg tablet PO SCH ×3 (08:00→20:38)
[2019-10-22] MEDS: clopidogrel 75mg tablet PO SCH (09:07)
[2019-10-22] MEDS: pantoprazole 40mg Tablet.DR PO SCH (09:07)
[2019-10-22] MEDS: lactobacillus rhamnosus 10,000 MMU CELLS/CAPSULE PO SCH ×2 (09:07→20:38)
[2019-10-22] MEDS: furosemide 40mg/4ml inj IV SCH (09:08)
[2019-10-22] MEDS: apixaban 5mg tablet PO SCH ×2 (09:08→20:38)
[2019-10-22] MEDS: nystatin 500,000 unit/5ML UD oral suspension PO SCH (09:08)
[2019-10-22] MEDS: ondansetron/PF 4mg/2ml inj IV PRN (09:18)
[2019-10-22 12:00] VITALS: BP 163/54
[2019-10-22] MEDS: lactose-reduced food (Ensure Enlive) - 237ml bottle PO SCH (12:28)
[2019-10-22] MEDS ORDERED: VANCOMYCIN LEVEL IV ONE (12:30)
[2019-10-22] MEDS: fluconazole 100mg tablet PO SCH (13:01)
[2019-10-22] MEDS: insulin Lispro (HumaLOG) vial - multi-dose SQ SCH ×2 (13:22→21:33)
--- NOTE | 2019-10-22 17:15 | NUR ---
Dressing to left lower extremity changed per written orders.
--- NOTE | 2019-10-22 18:26 | NUR ---
Problems reprioritized. Patient report given, questions answered & plan of care reviewed with TAYE Blas.
--- NOTE | 2019-10-22 18:30 | NUR ---
Patient in room [facility] 356. I have received report from ISADORA KOTHARI and had the opportunity to ask questions and assume patient care.
[2019-10-22 20:00] VITALS: BP 155/83
[2019-10-22] MEDS: insulin glargine (Lantus) pen - multi-dose SQ SCH (21:29)
[2019-10-23] VITALS: BP 155/65
[2019-10-23 05:46] LABS: BASOPHILS % (AUTO) 0.1 % (0-1); EOSINOPHILS # (AUTO) 0.1 X10'3 (0-0.9); EOSINOPHILS % (AUTO) 0.3 % (0-6); HEMATOCRIT 24.4 % (35.0-45.0); HEMOGLOBIN 8.1 g/dl (12.0-16.0); LYMPHOCYTES # (AUTO) 8.6 X10'3 (1.1-4.8); MEAN CORPUSCULAR HEMOGLOBIN 31.8 PG (27.0-31.0); MEAN CORPUSCULAR HGB CONC 33.3 g/dL (33.0-36.5); MEAN CORPUSCULAR VOLUME 95.7 FL (78-98); MEAN PLATELET VOLUME 7.6 FL (7.4-10.4); MONOCYTES # (AUTO) 0.9 X10'3 (0-0.9); MONOCYTES % (AUTO) 2.8 % (2-12); NEUTROPHILS # (AUTO) 23.3 X10'3 (1.8-7.7); NEUTROPHILS % (AUTO) 70.8 % (42-75); PLATELET COUNT 282 X10'3 (140-440); RED BLOOD COUNT 2.55 X10'6 (4.20-5.60); RED CELL DISTRIBUTION WIDTH 13.4 % (11.5-14.5)
[2019-10-23 05:49] LABS: ALANINE AMINOTRANSFERASE 8 U/L (12-78); ALBUMIN 1.8 G/DL (3.4-5.0); ALBUMIN/GLOBULIN RATIO 0.8 (1.1-1.5); ALKALINE PHOSPHATASE 51 IU/L (46-116); ANION GAP 3 (8-16); ASPARTATE AMINO TRANSFERASE 14 U/L (10-37); BILIRUBIN,TOTAL 0.8 MG/DL (0.1-1.0); BLOOD UREA NITROGEN 58 MG/DL (7-18); BUN/CREATININE RATIO 51.8 (6.6-38.0); CALCIUM 7.6 MG/DL (8.5-10.1); CHLORIDE 105 MMOL/L (99-107); CREATININE 1.12 MG/DL (0.40-0.90); GLUCOSE 166 MG/DL (70-104); MAGNESIUM 2.5 MG/DL (1.5-2.4); PHOSPHORUS 3.6 MG/DL (2.3-4.5); POTASSIUM 4.9 MMOL/L (3.5-5.1); SODIUM 136 MMOL/L (135-145); TOTAL CARBON DIOXIDE 28.2 MMOL/L (24-32); eGFR 47 ML/MIN
--- NOTE | 2019-10-23 06:25 | NUR ---
Patient in room [facility] 356. I have received report from Soumya Dooley RN and had the opportunity to ask questions and assume patient care.
[2019-10-23 06:30] VITALS: BP 144/87
--- NOTE | 2019-10-23 06:30 | NUR ---
Problems reprioritized. Patient report given, questions answered & plan of care reviewed with SARMAD RN.
[2019-10-23] MEDS: K and/or MAG REPLACEMENT MC SCH ×2 (07:26→18:52)
[2019-10-23] MEDS: JUVEN Smoothie Arginine/Glut./Ca2+Bmb (Juven 19.3pkt) 240ml cup PO SCH ×2 (07:30→17:30)
[2019-10-23] MEDS: apixaban 5mg tablet PO SCH ×2 (08:25→21:06)
[2019-10-23] MEDS: clopidogrel 75mg tablet PO SCH (08:25)
[2019-10-23] MEDS: fluconazole 100mg tablet PO SCH (08:25)
[2019-10-23] MEDS: hydrALAZINE 25 MG tablet PO SCH ×3 (08:25→20:54)
[2019-10-23] MEDS: cloNIDine 0.1 mg tablet PO SCH ×3 (08:26→20:54)
[2019-10-23] MEDS: furosemide 40mg/4ml inj IV SCH (08:26)
[2019-10-23] MEDS: lisinopril 10 MG tablet PO SCH (08:26)
[2019-10-23] MEDS: lactobacillus rhamnosus 10,000 MMU CELLS/CAPSULE PO SCH ×2 (08:26→20:00)
[2019-10-23] MEDS: pantoprazole 40mg Tablet.DR PO SCH (08:26)
[2019-10-23 09:26] LABS: TOTAL CELLS COUNTED 100; TOXIC GRANULATION 1+
[2019-10-23 09:27] LABS: SMUDGE CELLS 1+
[2019-10-23 09:29] LABS: ANISOCYTOSIS FEW; PLATELET ESTIMATE NORMAL
[2019-10-23] MEDS: insulin Lispro (HumaLOG) vial - multi-dose SQ SCH ×2 (09:39→14:13)
[2019-10-23 11:00] VITALS: BP 116/52
[2019-10-23] MEDS: lactose-reduced food (Ensure Enlive) - 237ml bottle PO SCH (12:30)
[2019-10-23] MEDS: VANCOMYCIN 750MG IV in NS 250 ML IV SCH (12:55)
--- NOTE | 2019-10-23 15:28 | NUR ---
Reassessment: Patient's PO intake has declined, documented with average 0-25% PO intake with refusals of 3 meals while receiving max assistance since last RD assessment. Pt with average 75% PO intake of Moses smoothie BID and 25-50% PO intake of Ensure Enlive q day however refused both ONS today. Limited nutrition interventions given current diet order. D/w dietary to send pudding and yogurt with meals to provide additional food options. LB 10/22. Will continue to follow closely. Recommend: 1. continue pureed/thin/carb controlled diet; texture per FINE ARTS MODEL recs 2. Encourage PO intake, assist with meals 3. Ensure Enlive q lunch and Moses Smoothie BIDBD 4. Yogurt BIDBD, Ensure pudding q lunch 5. routine bowel care 6. scaled weights per rx Addendum: 10/23/19 at [address] Amended: Links added.
[2019-10-23 18:00] VITALS: BP 137/52
--- NOTE | 2019-10-23 18:20 | NUR ---
Problems reprioritized. Patient report given, questions answered & plan of care reviewed with Soumya Dooley RN.
--- NOTE | 2019-10-23 18:30 | NUR ---
Pt's son, Rodrigo, arrived for a one time approved by the CNO visit to, per & Rodrigo, try to encourage pt to be motivated to get better/begin improving. Spoke w/pt's son briefly whom stated he would not be making any changes tonight re:pt's POC/code status & wanted to spend some alone time with his mother. Had spoke to Rodrigo via phone call from him prior to this visit to update him on pt's status per his inquiry. Informed Rodrigo pt is declining ie edematous, not eating, increasing weakness, mostly sleeping & this is when Rodrigo stated he wanted to visit his mother. Called Dr Jasmine to inform of Rodrigo's request & requested that Dr Jasmine call Rodrigo to which Dr Jasmine agreed to do.
--- NOTE | 2019-10-23 18:30 | NUR ---
Patient in room [facility] 356. I have received report from SARMAD KOTHARI and had the opportunity to ask questions and assume patient care.
[2019-10-23] MEDS: insulin glargine (Lantus) pen - multi-dose SQ SCH (20:55)
[2019-10-24] VITALS (9 sets, daily range): BP systolic 126–185; BP diastolic 35–70
[2019-10-24] MEDS: HYDROcodone/acetaminophen 5mg/325mg tablet PO PRN (00:27)
[2019-10-24 06:14] LABS: BASOPHILS % (AUTO) 0.1 % (0-1); EOSINOPHILS # (AUTO) 0.2 X10'3 (0-0.9); EOSINOPHILS % (AUTO) 0.6 % (0-6); LYMPHOCYTES # (AUTO) 5.6 X10'3 (1.1-4.8); LYMPHOCYTES % (AUTO) 22.2 % (21-51); MEAN CORPUSCULAR HEMOGLOBIN 32.3 PG (27.0-31.0); MEAN CORPUSCULAR HGB CONC 33.5 g/dL (33.0-36.5); MEAN CORPUSCULAR VOLUME 96.5 FL (78-98); MEAN PLATELET VOLUME 7.8 FL (7.4-10.4); MONOCYTES # (AUTO) 0.7 X10'3 (0-0.9); MONOCYTES % (AUTO) 2.9 % (2-12); NEUTROPHILS # (AUTO) 18.7 X10'3 (1.8-7.7); NEUTROPHILS % (AUTO) 74.2 % (42-75); PLATELET COUNT 216 X10'3 (140-440); RED BLOOD COUNT 2.14 X10'6 (4.20-5.60); RED CELL DISTRIBUTION WIDTH 13.6 % (11.5-14.5)
[2019-10-24 06:20] LABS: HEMATOCRIT 20.6 % (35.0-45.0); HEMOGLOBIN 6.9 g/dl (12.0-16.0); WHITE BLOOD COUNT 25.1 X10'3 (4.5-11.0)
[2019-10-24 06:29] LABS: MAGNESIUM 2.2 MG/DL (1.5-2.4); PHOSPHORUS 3.6 MG/DL (2.3-4.5)
--- NOTE | 2019-10-24 06:38 | NUR ---
Problems reprioritized. Patient report given, questions answered & plan of care reviewed with SARMAD RN.
[2019-10-24 07:18] LABS: PLATELET ESTIMATE NORMAL; TOTAL CELLS COUNTED 100
[2019-10-24 07:19] LABS: TOXIC GRANULATION 1+
--- NOTE | 2019-10-24 07:20 | NUR ---
Patient in room [facility] 356. I have received report from Soumya Dooley RN and had the opportunity to ask questions and assume patient care.
[2019-10-24] MEDS: JUVEN Smoothie Arginine/Glut./Ca2+Bmb (Juven 19.3pkt) 240ml cup PO SCH (07:30)
[2019-10-24 07:48] LABS: ALANINE AMINOTRANSFERASE 17 U/L (12-78); ALBUMIN 1.7 G/DL (3.4-5.0); ALBUMIN/GLOBULIN RATIO 0.8 (1.1-1.5); ALKALINE PHOSPHATASE 47 IU/L (46-116); ANION GAP 4 (8-16); ASPARTATE AMINO TRANSFERASE 18 U/L (10-37); BILIRUBIN,TOTAL 0.7 MG/DL (0.1-1.0); BLOOD UREA NITROGEN 49 MG/DL (7-18); CALCIUM 7.4 MG/DL (8.5-10.1); CHLORIDE 109 MMOL/L (99-107); CREATININE 1.02 MG/DL (0.40-0.90); GLUCOSE 135 MG/DL (70-104); POTASSIUM 4.5 MMOL/L (3.5-5.1); SODIUM 143 MMOL/L (135-145); TOTAL PROTEIN 3.8 G/DL (6.4-8.2); eGFR 52 ML/MIN
[2019-10-24] MEDS ORDERED: naloxone 0.4 mg/ml inj IV SCH (08:20)
[2019-10-24] MEDS ORDERED: naloxone 0.4 mg/ml inj ONE (08:21)
[2019-10-24 08:26] LABS: ABG BASE EXCESS 3.1 mmol/L (-2.0-2.0); ABG OXYGEN SATURATION 83.2 % (94-97); ABG PCO2 (T) 52.8 mmHg (32.0-45.0); ABG PO2 (T) 51.5 mmHg (75.0-100.0); ALLEN'S TEST POSITIVE; FCOHb 1.8 % (0.0-3.9); FMetHb 0.1 % (0.0-1.5); FO2Hb 81.6 % (94-97); TOTAL HEMOGLOBIN 7.8 G/dl (12.0-16.0)
[2019-10-24] MEDS ORDERED: naloxone 0.4 mg/ml inj IV PRN (08:35)
--- NOTE | 2019-10-24 09:50 | NUR ---
Teleneurology exam completed with Dr Colin HUMPHRIES.
[2019-10-24] MEDS: lactobacillus rhamnosus 10,000 MMU CELLS/CAPSULE PO SCH ×2 (10:00→19:40)
[2019-10-24] MEDS: lisinopril 10 MG tablet PO SCH (10:00)
[2019-10-24] MEDS: K and/or MAG REPLACEMENT MC SCH ×2 (10:00→19:39)
[2019-10-24] MEDS: cloNIDine 0.1 mg tablet PO SCH ×3 (10:00→20:31)
[2019-10-24] MEDS: hydrALAZINE 25 MG tablet PO SCH ×3 (10:00→20:31)
[2019-10-24] MEDS: fluconazole 100mg tablet PO SCH (10:00)
[2019-10-24] MEDS: pantoprazole 40mg Tablet.DR PO SCH (10:00)
[2019-10-24] MEDS ORDERED: iohexol 350MG/ML 100ml bottle IV ONE (10:13)
[2019-10-24] MEDS ORDERED: methylPREDNISolone sod succ 125mg/2ml vial IV ONE (10:15)
--- NOTE | 2019-10-24 11:00 | NUR ---
To CT via gurney for CTA. Tolerated transport well. Clearly more responsive when son Rodrigo arrived. Now oriented to year and knows she's in the hospital. Now able to move left foot, cannot lift left leg. Able to lift left arm but not hold up. Does attend to both sides and gaze is intact. Donta Wallace at bedside. Right side strength impaired due to overall weakness. Able to follow simple commands.
[2019-10-24] MEDS: furosemide 40mg/4ml inj IV SCH (11:28)
--- NOTE | 2019-10-24 12:24 | NUR ---
TF consult: Pt documented to have refused all meals 10/22, not meeting nutrient needs. Pt s/p rapid response this morning, CT head reveals large CVA per PA notes. ST has been consulted for BSS. Still pending Corpak placement per RN. TF recommendations below calculated to meet 100% of patient's estimated nutrient needs for once Corpak placed. LBM 10/22. Will continue to follow closely. Recommend: 1) Once Corpak placed and confirmed in appropriate location, continuous Jevity 1.2 with goal rate of 60 mL/hr to provide: 1440 mL total volume/day, 1728 kcal, 80 g protein, and 1162 mL water (10 g CHO/hr once at goal rate) 2) Once TF, additional 95 mL water flush Q4H 3) Prealbumin q Saturday/ 4) Daily weight 5) PO diet advancement as medically indicated per ST pending BSS; recommend regular diet given poor PO hx 6) Routine bowel care Addendum: 10/24/19 at [address] Amended: Links added.
[2019-10-24] MEDS ORDERED: insulin regular, human U-100 3ml vial - multi-dose SQ SCH ×2 (12:37→13:05)
[2019-10-24 12:57] LABS: PLATELET COUNT 267 X10'3 (140-440)
[2019-10-24 13:17] LABS: D-DIMER 1.61 MG/L FEU (0-0.50); PARTIAL THROMBOPLASTIN TIME 33 SECONDS (22-32)
[2019-10-24] MEDS: methylPREDNISolone sod succ 125mg/2ml vial IV SCH ×2 (13:29→19:43)
[2019-10-24] MEDS: VANCOMYCIN 750MG IV in NS 250 ML IV SCH (13:29)
--- NOTE | 2019-10-24 15:20 | NUR ---
attempt to call and receive report on pt. Awaiting callback from primary RN
--- NOTE | 2019-10-24 16:00 | NUR ---
Report given to neuro RNChristelle
--- NOTE | 2019-10-24 16:55 | NUR ---
Pt transported to room 4011B by RN & tech via hospital bed
--- NOTE | 2019-10-24 17:14 | NUR ---
pt received to 0186c
--- NOTE | 2019-10-24 20:12 | NUR ---
Per pharmacist do not give patient any insulin since the Corpak is not placed yet and she is npo. Once she is on tube feeding then start the Humulin insulin as ordered.
[2019-10-24] MEDS: insulin glargine (Lantus) pen - multi-dose SQ SCH ×2 (20:32→21:00)
--- NOTE | 2019-10-24 20:36 | NUR ---
I called Roxann Hernandez [employer] DEVELOPER regarding patient's blood sugar and insulin orders. She told me to have the patient restart the protocol and to do the blood sugars q6hr due to being npo. So no insulin to be given right now until she meets the DM protocol again. I also discussed that there is no anticoagulant or antiplatelet ordered for patient since she is npo and she asked that I contact Neurology senior erp consultant for recommendations. I will contact them and have the physician call her directly.
[2019-10-24] MEDS ORDERED: insulin Lispro (HumaLOG) vial - multi-dose SQ SCH (20:55)
--- NOTE | 2019-10-24 21:00 | NUR ---
Patient woke up during wound care. She was able to answer yes or no questions. Speech was slurred. She was not able to tell me her name, where she was, or what was going on. I asked her how she was doing and she responded with "fine". I asked her if she was in any pain and she responded with "no". She kept her eyes open throughout wound care and would either give me one word answers to respond to me or by making grunting noises. She did not appear to be in any pain or distress. I explained to her that we would be placing a corpak because she needs nutrition and it will help provider her with nutrition. When I explained she needs nutrition she responded with "I do?" I explained the benefits of the corpak and she then responded with "okay". Wound care completed and clean dry flows placed under her per wound care orders.
--- NOTE | 2019-10-24 21:25 | NUR ---
Per Roxann Hernandez patient can have Plavix but no elequist, also to not give any b/p meds as of now and if there is any concern with elevated b/p to notify the physician systems management consultant.
--- NOTE | 2019-10-24 22:15 | NUR ---
Eden placed. Size 12 fr. Tube inserted to 70. Secured tube to patients nose and marked with tape.
--- NOTE | 2019-10-24 23:24 | NUR ---
Advanced corpak to 80 and KUB obtained to check placement.
--- NOTE | 2019-10-25 04:30 | NUR ---
Bedside swallow done on patient due to her waking up and requesting water. Started with 3ml and she had no problems or signs of aspiration. Patient was able to take small sips of water with a straw without any difficulty.
--- NOTE | 2019-10-25 04:49 | NUR ---
Spoke with radiology about the KUB ordered at 0400. There is only one radiologist at the moment and she is busy in the ER. KUB will be done when day shift comes on.
[2019-10-25 06:00] VITALS: BP 191/58
[2019-10-25 06:11] LABS: BASOPHILS % (AUTO) 0.1 % (0-1); EOSINOPHILS % (AUTO) 0 % (0-6); HEMATOCRIT 28.5 % (35.0-45.0); HEMOGLOBIN 9.5 g/dl (12.0-16.0); LYMPHOCYTES # (AUTO) 7.5 X10'3 (1.1-4.8); LYMPHOCYTES % (AUTO) 20.7 % (21-51); MEAN CORPUSCULAR HEMOGLOBIN 31.1 PG (27.0-31.0); MEAN CORPUSCULAR HGB CONC 33.4 g/dL (33.0-36.5); MEAN CORPUSCULAR VOLUME 93.3 FL (78-98); MEAN PLATELET VOLUME 7.9 FL (7.4-10.4); MONOCYTES # (AUTO) 0.4 X10'3 (0-0.9); MONOCYTES % (AUTO) 1.1 % (2-12); NEUTROPHILS # (AUTO) 28.1 X10'3 (1.8-7.7); NEUTROPHILS % (AUTO) 78.1 % (42-75); PLATELET COUNT 243 X10'3 (140-440); RED BLOOD COUNT 3.05 X10'6 (4.20-5.60); RED CELL DISTRIBUTION WIDTH 15.8 % (11.5-14.5)
[2019-10-25 06:23] LABS: ALANINE AMINOTRANSFERASE 22 U/L (12-78); ALBUMIN 2.1 G/DL (3.4-5.0); ALBUMIN/GLOBULIN RATIO 0.8 (1.1-1.5); ALKALINE PHOSPHATASE 59 IU/L (46-116); ANION GAP 9 (8-16); ASPARTATE AMINO TRANSFERASE 18 U/L (10-37); BILIRUBIN,TOTAL 1.1 MG/DL (0.1-1.0); BLOOD UREA NITROGEN 52 MG/DL (7-18); BUN/CREATININE RATIO 44.1 (6.6-38.0); CALCIUM 7.8 MG/DL (8.5-10.1); CHLORIDE 108 MMOL/L (99-107); CHOL/HDL RATIO 3.5 (0.00-4.99); CHOLESTEROL 108 MG/DL (0-200); CREATININE 1.18 MG/DL (0.40-0.90); GLUCOSE 241 MG/DL (70-104); HDL CHOLESTEROL 31 MG/DL (35-60); LDL CHOLESTEROL 64 MG/DL (50-100); MAGNESIUM 2.6 MG/DL (1.5-2.4); POTASSIUM 4.6 MMOL/L (3.5-5.1); SODIUM 143 MMOL/L (135-145); TOTAL CARBON DIOXIDE 26.2 MMOL/L (24-32); TOTAL PROTEIN 4.7 G/DL (6.4-8.2); TRIGLYCERIDES 86 MG/DL (20-135); eGFR 44 ML/MIN
--- NOTE | 2019-10-25 06:31 | NUR ---
Critical lab: WBC 36. Called April NAUMKEAG OPERATOR, no change in orders.
--- NOTE | 2019-10-25 06:33 | NUR ---
Problems reprioritized. Patient report given, questions answered & plan of care reviewed with Nirmala KOTHARI.
[2019-10-25 07:01] LABS: ANISOCYTOSIS 1+; PLATELET ESTIMATE NORMAL; TOTAL CELLS COUNTED 100
[2019-10-25] MEDS ORDERED: clopidogrel 75mg tablet NG SCH (08:00)
[2019-10-25] MEDS: cloNIDine 0.1 mg tablet PO SCH ×3 (08:00→21:00)
[2019-10-25] MEDS: furosemide 40mg/4ml inj IV SCH (08:00)
[2019-10-25] MEDS: hydrALAZINE 25 MG tablet PO SCH ×3 (08:00→21:00)
[2019-10-25] MEDS: lisinopril 10 MG tablet PO SCH (08:00)
[2019-10-25] MEDS: K and/or MAG REPLACEMENT MC SCH ×2 (08:48→20:00)
--- NOTE | 2019-10-25 08:51 | NUR ---
ORDER TO HOLD ALL BP MEDICATIONS. CORPAK PLACED, REEVALUATED AND IN PLACE, AWAITING NUTRITION ORDERS.
[2019-10-25 10:00] VITALS: BP 182/61
--- NOTE | 2019-10-25 10:15 | NUR ---
Pt more awake today, responded to name, smiled. Remains not oriented to age unable to state age or year, knows shes' in [facility]. Corpak in place, waiting for TF to begin. Clearly improved today neurologically. Restated PLavix, holding off on Eliquis per SOC recommendations. Moving both sides today. Following simple commands.
--- NOTE | 2019-10-25 11:04 | NUR ---
SON IN ROOM
[2019-10-25] MEDS: lactobacillus rhamnosus 10,000 MMU CELLS/CAPSULE PO SCH ×2 (12:11→22:01)
[2019-10-25] MEDS: pantoprazole 40 MG vial IV SCH ×2 (12:11→19:48)
[2019-10-25] MEDS: fluconazole 100mg tablet PO SCH (12:12)
[2019-10-25] MEDS: acetaminophen 325mg tablet PO PRN (12:18)
[2019-10-25] MEDS: VANCOMYCIN 750MG IV in NS 250 ML IV SCH (16:18)
[2019-10-25 18:00] VITALS: BP 181/54
[2019-10-25] MEDS: insulin regular, human U-100 3ml vial - multi-dose SQ SCH (18:20)
[2019-10-25 22:00] VITALS: BP 171/56
[2019-10-25] MEDS: insulin glargine (Lantus) pen - multi-dose SQ SCH (22:41)
[2019-10-26] MEDS: insulin regular, human U-100 3ml vial - multi-dose SQ SCH ×4 (01:53→20:46)
[2019-10-26 02:00] VITALS: BP 169/43
[2019-10-26 06:00] VITALS: BP 145/58
--- NOTE | 2019-10-26 06:05 | NUR ---
Patient in room [facility]TH[facility] 4011. I have received report from KEN KOTHARI and had the opportunity to ask questions and assume patient care.
[2019-10-26 07:01] LABS: BASOPHILS # (AUTO) 0.1 X10'3 (0-0.2); BASOPHILS % (AUTO) 0.2 % (0-1); EOSINOPHILS % (AUTO) 0 % (0-6); HEMATOCRIT 26.9 % (35.0-45.0); HEMOGLOBIN 9.1 g/dl (12.0-16.0); LYMPHOCYTES # (AUTO) 7.5 X10'3 (1.1-4.8); LYMPHOCYTES % (AUTO) 20.8 % (21-51); MEAN CORPUSCULAR HGB CONC 33.7 g/dL (33.0-36.5); MONOCYTES # (AUTO) 0.9 X10'3 (0-0.9); MONOCYTES % (AUTO) 2.5 % (2-12); NEUTROPHILS # (AUTO) 27.4 X10'3 (1.8-7.7); NEUTROPHILS % (AUTO) 76.5 % (42-75); PLATELET COUNT 232 X10'3 (140-440); RED BLOOD COUNT 2.83 X10'6 (4.20-5.60); RED CELL DISTRIBUTION WIDTH 15.8 % (11.5-14.5)
[2019-10-26 07:12] LABS: WHITE BLOOD COUNT 35.8 X10'3 (4.5-11.0)
[2019-10-26 07:20] LABS: ALANINE AMINOTRANSFERASE 20 U/L (12-78); ALBUMIN 1.9 G/DL (3.4-5.0); ALBUMIN/GLOBULIN RATIO 0.8 (1.1-1.5); ALKALINE PHOSPHATASE 63 IU/L (46-116); ANION GAP 4 (8-16); ASPARTATE AMINO TRANSFERASE 24 U/L (10-37); BILIRUBIN,TOTAL 0.6 MG/DL (0.1-1.0); BLOOD UREA NITROGEN 57 MG/DL (7-18); BUN/CREATININE RATIO 47.1 (6.6-38.0); CALCIUM 7.5 MG/DL (8.5-10.1); CHLORIDE 111 MMOL/L (99-107); CREATININE 1.21 MG/DL (0.40-0.90); GLUCOSE 358 MG/DL (70-104); MAGNESIUM 2.8 MG/DL (1.5-2.4); PHOSPHORUS 3.2 MG/DL (2.3-4.5); POTASSIUM 4.4 MMOL/L (3.5-5.1); PREALBUMIN 13.5 MG/DL (19-36); SODIUM 145 MMOL/L (135-145); TOTAL CARBON DIOXIDE 30.4 MMOL/L (24-32); TOTAL PROTEIN 4.4 G/DL (6.4-8.2); eGFR 43 ML/MIN
[2019-10-26 07:26] LABS: TOTAL CELLS COUNTED 100
[2019-10-26 07:27] LABS: PLATELET ESTIMATE NORMAL
[2019-10-26] MEDS ORDERED: dextrose ORAL solution 15 GM/59 ML bottle CORPAK PRN ×2 (07:48)
[2019-10-26] MEDS ORDERED: fluconazole 100mg tablet CORPAK SCH (07:49)
[2019-10-26] MEDS ORDERED: magnesium hydroxide 30ml (MOM) UD suspension CORPAK PRN (07:50)
[2019-10-26] MEDS ORDERED: LORazepam 0.5 MG tablet CORPAK PRN (07:50)
[2019-10-26] MEDS ORDERED: acetaminophen 325mg/10.15ml oral unit dose solution CORPAK PRN ×2 (07:52)
[2019-10-26] MEDS ORDERED: docusate sodium 100mg/10ml UD cup CORPAK PRN (07:53)
[2019-10-26] MEDS: hydrALAZINE 25 MG tablet CORPAK SCH ×3 (08:00→20:34)
[2019-10-26] MEDS: lisinopril 10 MG tablet CORPAK SCH (08:00)
[2019-10-26] MEDS: furosemide 40mg/4ml inj IV SCH (08:00)
[2019-10-26] MEDS: cloNIDine 0.1 mg tablet CORPAK SCH ×3 (08:00→20:34)
[2019-10-26] MEDS: clopidogrel 75mg tablet CORPAK SCH (08:16)
[2019-10-26] MEDS: lactobacillus rhamnosus 10,000 MMU CELLS/CAPSULE CORPAK SCH ×2 (08:16→20:47)
--- NOTE | 2019-10-26 08:38 | NUR ---
DR. RANDALL LINARES INTO SEE PATIENT. HER SON, SHELIA CALLED REGARDING VISITATION, THIS IS OK FOR A HOUR. [phone] CALLED DR. JASMINE REGARDING THE HOLD ON PATIENTS BP MEDICATION Addendum: 10/26/19 at 0920 by Nirmala Mcpherson RN no call to Dr. Jasmine, their is a "[facility] Nursing order to keep BP between 160 and 140 SBP" BP meds held.
[2019-10-26 08:48] VITALS: BP 146/57
[2019-10-26] MEDS: pantoprazole 40 MG vial IV SCH ×2 (08:56→20:46)
[2019-10-26] MEDS: K and/or MAG REPLACEMENT MC SCH ×2 (08:58→20:00)
--- NOTE | 2019-10-26 09:40 | NUR ---
Bedside RN Nirmala ssessing pt wounds when I arrived. I find pt subdued this morning. Eyes are open and still tends to attend more to her right side, however, will gaze toward the left when head is physically turned to midline. Voice is stronger. When given choices is oriented to year and age. Moves all 4 extremities, right more than left. Advanced to pureed diet, still has corpak in. Definite improvement over 2 days ago. Continue Plavix, AC remains on hold for now.
--- NOTE | 2019-10-26 09:49 | NUR ---
F/u (10/25): Pt tolerating TF at goal; not started till AM 10/24 s/p successful corpak placement in distal stomach at this time per imaging. Pt advanced to pureed/NTL diet per CHIMNEY REPAIRER recs today pending PO hx; RN reports was able to tolerate 4oz thick water. 95ml Q4 water flushes w/ Na 145 today up from prior; JETHRO d/w RN regarding 200ml Q4 water flushes as well as routine bowel care if MD agreeable. Colace ordered BID PRN w/ LBM 10/22. May benefit from increase in hyperglycemic coverage as well if MD agreeable w/ Glu 358 this AM; likely from necrotic wound. S/p LLE bypass w/ wound stable per MD. Also given steroid for contrast CT per MD note; to impact Glu. Will continue to monitor for EN/PO tolerance and additional protein needs. Recommend: 1) Once Corpak placed and confirmed in appropriate location, continuous Jevity 1.2 with goal rate of 60 mL/hr to provide: 1440 mL total volume/day, 1728 kcal, 80 g protein, and 1162 mL water (10 g CHO/hr once at goal rate) 2) 95 mL water flush Q4H; 200ml Q4 if MD agreeable Na 145 3) Prealbumin q Saturday/; daily wts 4) continue pureed/NTL diet per CHIMNEY REPAIRER recs 5) Once PO at least 65% avg meals; wean EN as medically indicated 6) Routine bowel care Addendum: 10/26/19 at [address] Amended: Links added. Addendum: 10/26/19 at [address] F/u (10/25): Pt tolerating TF at goal; not started till AM 10/24 s/p successful corpak placement in distal stomach at this time per imaging. Pt advanced to pureed/NTL diet per CHIMNEY REPAIRER recs today pending PO hx; RN reports was able to tolerate 4oz thick water. 95ml Q4 water flushes w/ Na 145 today up from prior; RD d/w RN regarding 200ml Q4 water flushes as well as routine bowel care if MD agreeable. Colace ordered BID PRN w/ LBM 10/22. May benefit from increase in hyperglycemic coverage as well if MD agreeable w/ Glu 358 this AM; likely from necrotic wound. S/p LLE bypass w/ wound stable per MD. Also given steroid for contrast CT per MD note; to impact Glu. Able to resume ensure pudding at lunches,yogurt, and ensure enlive thickened w/ new PO diet. Unable to send Moses dias as NTL restriction. Will continue to monitor for EN/PO tolerance and additional protein needs; if good PO on NTL may benefit from Moses packet BID w/ PO liquids. Recommend: 1) Once Corpak placed and confirmed in appropriate location, continuous Jevity 1.2 with goal rate of 60 mL/hr to provide: 1440 mL total volume/day, 1728 kcal, 80 g protein, and 1162 mL water (10 g CHO/hr once at goal rate) 2) 95 mL water flush Q4H; 200ml Q4 if MD agreeable Na 145 3) Prealbumin q Saturday/; daily wts 4) continue pureed/NTL diet per CHIMNEY REPAIRER recs; ensure enlive, ensure pudding, yogurt nectar thick resuming w/ PO 5) hold Moses smoothie on NTL; if good PO liquids consider packet BID while on NTL 6) Once PO at least 65% avg meals; wean EN as medically indicated 7) Routine bowel care
[2019-10-26 10:00] VITALS: BP 142/56
[2019-10-26] MEDS ORDERED: VANCOMYCIN LEVEL IV ONE (12:30)
--- NOTE | 2019-10-26 14:33 | NUR ---
Held patient BP meds, due to order to keep SBP between 160 and 140
[2019-10-26] MEDS: vancomycin/NS 1 GM ADD-VANTAGE 250 ML X 1 DOSE IV SCH (15:01)
--- NOTE | 2019-10-26 18:06 | NUR ---
Problems reprioritized. Patient report given, questions answered & plan of care reviewed with BLANCA KOTHARI.
[2019-10-26 18:13] VITALS: BP 171/63
[2019-10-26] MEDS ORDERED: docusate sodium 100mg/10ml UD cup PO PRN (18:20)
[2019-10-26 22:00] VITALS: BP 141/58
[2019-10-26] MEDS: insulin glargine (Lantus) pen - multi-dose SQ SCH (22:08)
[2019-10-26] MEDS: ondansetron/PF 4mg/2ml inj IV PRN (22:10)
[2019-10-27] MEDS: insulin regular, human U-100 3ml vial - multi-dose SQ SCH ×3 (02:45→20:55)
[2019-10-27 05:18] LABS: BASOPHILS % (AUTO) 0 % (0-1); EOSINOPHILS % (AUTO) 0.1 % (0-6); HEMATOCRIT 26.8 % (35.0-45.0); HEMOGLOBIN 8.8 g/dl (12.0-16.0); LYMPHOCYTES # (AUTO) 8.2 X10'3 (1.1-4.8); LYMPHOCYTES % (AUTO) 22.3 % (21-51); MEAN CORPUSCULAR HEMOGLOBIN 31.1 PG (27.0-31.0); MEAN CORPUSCULAR HGB CONC 32.9 g/dL (33.0-36.5); MEAN CORPUSCULAR VOLUME 94.7 FL (78-98); MONOCYTES # (AUTO) 0.7 X10'3 (0-0.9); MONOCYTES % (AUTO) 1.8 % (2-12); NEUTROPHILS % (AUTO) 75.8 % (42-75); PLATELET COUNT 210 X10'3 (140-440); RED BLOOD COUNT 2.83 X10'6 (4.20-5.60); RED CELL DISTRIBUTION WIDTH 15.7 % (11.5-14.5)
[2019-10-27 05:47] LABS: ALANINE AMINOTRANSFERASE 23 U/L (12-78); ALBUMIN 1.8 G/DL (3.4-5.0); ALBUMIN/GLOBULIN RATIO 0.7 (1.1-1.5); ALKALINE PHOSPHATASE 86 IU/L (46-116); ANION GAP 6 (8-16); ASPARTATE AMINO TRANSFERASE 14 U/L (10-37); BILIRUBIN,TOTAL 0.6 MG/DL (0.1-1.0); BLOOD UREA NITROGEN 47 MG/DL (7-18); BUN/CREATININE RATIO 43.9 (6.6-38.0); CALCIUM 7.2 MG/DL (8.5-10.1); CHLORIDE 113 MMOL/L (99-107); CREATININE 1.07 MG/DL (0.40-0.90); GLUCOSE 253 MG/DL (70-104); MAGNESIUM 2.7 MG/DL (1.5-2.4); PHOSPHORUS 1.7 MG/DL (2.3-4.5); POTASSIUM 3.8 MMOL/L (3.5-5.1); SODIUM 147 MMOL/L (135-145); TOTAL CARBON DIOXIDE 28.4 MMOL/L (24-32); TOTAL PROTEIN 4.3 G/DL (6.4-8.2); eGFR 49 ML/MIN
[2019-10-27 06:00] VITALS: BP 188/54
--- NOTE | 2019-10-27 06:31 | NUR ---
REPORT GIVEN TO HUAN KOTHARI
[2019-10-27 07:37] LABS: TOTAL CELLS COUNTED 100
[2019-10-27 07:39] LABS: ANISOCYTOSIS FEW; PLATELET ESTIMATE NORMAL; SPHEROCYTES FEW
[2019-10-27] MEDS: hydrALAZINE 25 MG tablet CORPAK SCH ×3 (08:00→20:48)
[2019-10-27] MEDS: cloNIDine 0.1 mg tablet CORPAK SCH ×3 (08:00→20:48)
[2019-10-27] MEDS: lisinopril 10 MG tablet CORPAK SCH (08:00)
[2019-10-27] MEDS: K and/or MAG REPLACEMENT MC SCH ×2 (08:13→20:00)
[2019-10-27] MEDS: pantoprazole 40 MG vial IV SCH ×2 (08:27→20:48)
[2019-10-27] MEDS: furosemide 40mg/4ml inj IV SCH (08:29)
[2019-10-27] MEDS: lactobacillus rhamnosus 10,000 MMU CELLS/CAPSULE CORPAK SCH ×2 (08:41→20:48)
[2019-10-27] MEDS: clopidogrel 75mg tablet CORPAK SCH (08:41)
--- NOTE | 2019-10-27 08:41 | NUR ---
BP meds held per order to keep SBP between 140 and 160. Patient was given Lasix for her weeping extremities. BP 149/53 HR 81
[2019-10-27 10:00] VITALS: BP 150/48
--- NOTE | 2019-10-27 10:43 | NUR ---
Notified by tele patient rhythm has converted to AFIbb in -[address] Jasmine
[2019-10-27] MEDS: vancomycin/NS 1 GM ADD-VANTAGE 250 ML X 1 DOSE IV SCH (13:27)
[2019-10-27 13:45] VITALS: BP 120/51
[2019-10-27] MEDS ORDERED: amiodarone 150mg/dext, iso-os 100 ML IV ONE (17:15)
[2019-10-27] MEDS ORDERED: amiodarone/D5 360MG/200ML BAG 200 ML IV SCH (17:15)
[2019-10-27 18:00] VITALS: BP 121/45
--- NOTE | 2019-10-27 18:29 | NUR ---
RECEIVED REPORT FROM HUAN KOTHARI AND ASSUMED PATIENT CARE
--- NOTE | 2019-10-27 19:30 | NUR ---
RECEIVED CALL FROM THE ONLINE MERCHANT THAT PATIENT HAD CONVERTED BACK TO SINUS RHYTHM AT 1723 AND HR SUSTAINING IN THE 90'S. CALLED DR. ROSSI WHO ORDERED TO CANCEL THE TRANSFER TO TELE AND CANCEL THE AMIODARONE.
[2019-10-27] MEDS: insulin glargine (Lantus) pen - multi-dose SQ SCH (20:53)
[2019-10-27 22:00] VITALS: BP 132/49
[2019-10-28] MEDS: insulin regular, human U-100 3ml vial - multi-dose SQ SCH ×4 (02:15→21:10)
[2019-10-28 06:00] VITALS: BP 135/38
--- NOTE | 2019-10-28 06:00 | NUR ---
Patient in room [facility]TH[facility] 4011. I have received report from Adalgisa KOTHARI and had the opportunity to ask questions and assume patient care.
--- NOTE | 2019-10-28 06:35 | NUR ---
REPORT GIVEN TO ABDOULAYE KOTHARI
[2019-10-28] MEDS: lactobacillus rhamnosus 10,000 MMU CELLS/CAPSULE CORPAK SCH ×2 (07:06→08:05)
[2019-10-28 07:10] LABS: BASOPHILS % (AUTO) 0.1 % (0-1); EOSINOPHILS # (AUTO) 0.1 X10'3 (0-0.9); EOSINOPHILS % (AUTO) 0.1 % (0-6); HEMATOCRIT 23.6 % (35.0-45.0); HEMOGLOBIN 7.7 g/dl (12.0-16.0); LYMPHOCYTES # (AUTO) 7.4 X10'3 (1.1-4.8); LYMPHOCYTES % (AUTO) 19.7 % (21-51); MEAN CORPUSCULAR HEMOGLOBIN 31.3 PG (27.0-31.0); MEAN CORPUSCULAR HGB CONC 32.6 g/dL (33.0-36.5); MEAN CORPUSCULAR VOLUME 96.2 FL (78-98); MEAN PLATELET VOLUME 8.4 FL (7.4-10.4); MONOCYTES # (AUTO) 0.6 X10'3 (0-0.9); MONOCYTES % (AUTO) 1.6 % (2-12); NEUTROPHILS # (AUTO) 29.5 X10'3 (1.8-7.7); NEUTROPHILS % (AUTO) 78.5 % (42-75); PLATELET COUNT 140 X10'3 (140-440); RED BLOOD COUNT 2.46 X10'6 (4.20-5.60); RED CELL DISTRIBUTION WIDTH 15.9 % (11.5-14.5)
[2019-10-28 07:17] LABS: WHITE BLOOD COUNT 37.6 X10'3 (4.5-11.0)
[2019-10-28 07:43] LABS: ALANINE AMINOTRANSFERASE 15 U/L (12-78); ALBUMIN 1.6 G/DL (3.4-5.0); ALBUMIN/GLOBULIN RATIO 0.6 (1.1-1.5); ALKALINE PHOSPHATASE 70 IU/L (46-116); ANION GAP 4 (8-16); ASPARTATE AMINO TRANSFERASE 21 U/L (10-37); BILIRUBIN,TOTAL 0.5 MG/DL (0.1-1.0); BLOOD UREA NITROGEN 42 MG/DL (7-18); BUN/CREATININE RATIO 41.6 (6.6-38.0); CALCIUM 7.2 MG/DL (8.5-10.1); CHLORIDE 116 MMOL/L (99-107); CREATININE 1.01 MG/DL (0.40-0.90); GLUCOSE 138 MG/DL (70-104); MAGNESIUM 2.9 MG/DL (1.5-2.4); POTASSIUM 3.8 MMOL/L (3.5-5.1); SODIUM 151 MMOL/L (135-145); TOTAL CARBON DIOXIDE 30.7 MMOL/L (24-32); TOTAL PROTEIN 4.1 G/DL (6.4-8.2); eGFR 53 ML/MIN
[2019-10-28] MEDS: K and/or MAG REPLACEMENT MC SCH ×2 (08:00→20:00)
[2019-10-28] MEDS: furosemide 40mg/4ml inj IV SCH (08:05)
[2019-10-28] MEDS: clopidogrel 75mg tablet CORPAK SCH (08:05)
[2019-10-28] MEDS: pantoprazole 40 MG vial IV SCH ×2 (08:05→20:38)
[2019-10-28] MEDS: hydrALAZINE 25 MG tablet CORPAK SCH ×3 (09:41→20:44)
[2019-10-28] MEDS: lisinopril 10 MG tablet CORPAK SCH (09:41)
[2019-10-28] MEDS: cloNIDine 0.1 mg tablet CORPAK SCH ×3 (09:42→20:43)
[2019-10-28 09:50] LABS: PLATELET ESTIMATE NORMAL; TOTAL CELLS COUNTED 100
[2019-10-28 09:51] LABS: SCHISTOCYTES FEW; TOXIC GRANULATION 2+
[2019-10-28 09:57] LABS: SPHEROCYTES FEW
[2019-10-28 10:00] VITALS: BP 172/64
[2019-10-28] MEDS ORDERED: LIDOcaine 4% (40 mg/ml) topical solution 50ml TP ONE (10:45)
[2019-10-28] MEDS: cefepime 1GM in D5W 50mL 50 ML IV SCH ×2 (11:30→20:34)
[2019-10-28] MEDS: metroNIDAZOLE-Flagyl 500mg/NS 100 ML IV SCH ×2 (12:29→21:02)
[2019-10-28 14:00] VITALS: BP 136/42
[2019-10-28] MEDS: vancomycin/NS 1 GM ADD-VANTAGE 250 ML X 1 DOSE IV SCH (15:02)
[2019-10-28 18:00] VITALS: BP 142/52
[2019-10-28] MEDS: insulin glargine (Lantus) pen - multi-dose SQ SCH (21:13)
[2019-10-28 22:00] VITALS: BP 124/48
[2019-10-29] MEDS: ondansetron/PF 4mg/2ml inj IV PRN ×2 (02:27→08:44)
[2019-10-29] MEDS: insulin regular, human U-100 3ml vial - multi-dose SQ SCH ×2 (02:39→21:02)
[2019-10-29 06:00] VITALS: BP 160/46
[2019-10-29 06:27] LABS: ALANINE AMINOTRANSFERASE 21 U/L (12-78); ALBUMIN 1.6 G/DL (3.4-5.0); ALBUMIN/GLOBULIN RATIO 0.6 (1.1-1.5); ALKALINE PHOSPHATASE 61 IU/L (46-116); ANION GAP 2 (8-16); ASPARTATE AMINO TRANSFERASE 27 U/L (10-37); BILIRUBIN,TOTAL 0.5 MG/DL (0.1-1.0); BLOOD UREA NITROGEN 40 MG/DL (7-18); BUN/CREATININE RATIO 41.2 (6.6-38.0); CHLORIDE 118 MMOL/L (99-107); CREATININE 0.97 MG/DL (0.40-0.90); GLUCOSE 70 MG/DL (70-104); POTASSIUM 3.5 MMOL/L (3.5-5.1); SODIUM 152 MMOL/L (135-145); TOTAL CARBON DIOXIDE 31.6 MMOL/L (24-32); TOTAL PROTEIN 4.1 G/DL (6.4-8.2); eGFR 55 ML/MIN
--- NOTE | 2019-10-29 06:45 | NUR ---
Problems reprioritized. Patient report given, questions answered & plan of care reviewed with TAYE Olivier.
[2019-10-29] MEDS: hydrALAZINE 25 MG tablet CORPAK SCH ×4 (08:00→20:03)
[2019-10-29] MEDS: cloNIDine 0.1 mg tablet CORPAK SCH ×4 (08:00→20:03)
[2019-10-29] MEDS: clopidogrel 75mg tablet CORPAK SCH (08:00)
[2019-10-29] MEDS: K and/or MAG REPLACEMENT MC SCH ×2 (08:00→21:25)
--- NOTE | 2019-10-29 08:32 | NUR ---
TF STOPPED PER NPO ORDER FOR 8 AM. 0 RESIDUAL, PT MAKES IT KNOWN SHE IS NAUSEATED I TRIED TO FLUSH THE TUBE AND GIVE FREE WATER. HELD FOR NOW, WILL TREAT NAUSEA AND TRY AGAIN Addendum: 10/29/19 at 0834 by Kyra Alvarado RN Amended: Links added.
[2019-10-29] MEDS: furosemide 40mg/4ml inj IV SCH (08:44)
[2019-10-29] MEDS: pantoprazole 40 MG vial IV SCH ×2 (08:44→21:04)
[2019-10-29] MEDS: metroNIDAZOLE-Flagyl 500mg/NS 100 ML IV SCH ×2 (08:44→21:23)
[2019-10-29] MEDS: cefepime 1GM in D5W 50mL 50 ML IV SCH ×2 (09:03→20:30)
[2019-10-29 10:00] VITALS: BP 168/74
--- NOTE | 2019-10-29 12:29 | NUR ---
F/u (10/28): Pt tolerating TF at goal; continues to refuse pureed/NTL meals. Na 152 with no water flush documentation past 3 days; RD d/w RN regarding prior recommendations for 200ml Q4 water flush for optimal hydration needs given Na if MD agreeable. RN reports TF on hold this AM for bedside I&D of LE wound and free water was held this AM given pt episode of nausea and concern for possible vomiting. I&D away from recent bypass graft site per surgeon note. Pt would benefit from Moses BID w/ water flushes in order to aid wound healing needs; this requires 120ml free water to mix and 30ml flush before and after administration. RD notified MD and RN regarding recs and faxed administration guideline to RN. LBM 10/28 copious w/ BM x11 noted 10/26-10/27 and x4 BM's past 24 hours. Noted last BM prior to copious stools 10/22; likely constipation resolution as well. Will continue to monitor for TF tolerance and additional wound healing needs. Recommend: 1) Once Corpak placed and confirmed in appropriate location, continuous Jevity 1.2 with goal rate of 60 mL/hr to provide: 1440 mL total volume/day, 1728 kcal, 80 g protein, and 1162 mL water (10 g CHO/hr once at goal rate) 2) 95 mL water flush Q4H; 200ml Q4 if MD agreeable Na 152 3) Moses packet BID for wounds if MD agreeable; administer w/ 120ml free water and flush 30ml before and after administration 4) Prealbumin q Saturday/; daily wts 5) continue pureed/NTL diet per TRACK WATCHMAN recs;encourage PO 6) consider anti-diarrheal if diarrhea persists; receiving high fiber formula 7) Once PO at least 65% avg meals; wean EN as medically indicated Addendum: 10/29/19 at [address] Amended: Links added.
[2019-10-29] MEDS ORDERED: VANCOMYCIN LEVEL IV ONE (12:30)
[2019-10-29] MEDS: lisinopril 10 MG tablet CORPAK SCH (13:14)
[2019-10-29] MEDS: lactobacillus rhamnosus 10,000 MMU CELLS/CAPSULE CORPAK SCH ×2 (13:14→21:04)
[2019-10-29] MEDS: vancomycin/NS 1 GM ADD-VANTAGE 250 ML X 1 DOSE IV SCH (13:52)
[2019-10-29] MEDS ORDERED: metoclopramide 5 mg/ml inj IV PRN (16:05)
[2019-10-29] MEDS: Dextrose 10%-water IV solution 1,000 ML IV SCH (17:16)
[2019-10-29 18:00] VITALS: BP 133/57
--- NOTE | 2019-10-29 18:39 | NUR ---
Patient in room ORTHO 4011. I have received report from Christelle KOTHARI and had the opportunity to ask questions and assume patient care.
--- NOTE | 2019-10-29 19:40 | NUR ---
Unable to do NIH. Patient obtunded and unresponsive. Addendum: 10/30/19 at 0212 by Karen Velazquez RN Amended: Links added.
[2019-10-29] MEDS: ARGININE/GLUTAMINE/CALCIUM BMB (JUVEN 19.3GM PKT) 1 EACH POWD.PACK PO SCH (20:00)
--- NOTE | 2019-10-29 20:04 | NUR ---
Spoke with MD and D-10 put on hold till patient's tube feeding put on hold for procedure possibly tomorrow. Hold patient's BP meds for tonight due per MD. Also do not give plavix due to possible procedure tonight.
[2019-10-29] MEDS: insulin glargine (Lantus) pen - multi-dose SQ SCH (21:03)
[2019-10-29 22:00] VITALS: BP 144/39
--- NOTE | 2019-10-29 23:00 | NUR ---
Spoke with MD about non reactive pupils. Patient still unresponsive. CT ordered
[2019-10-29 23:01] VITALS: BP 109/35
--- NOTE | 2019-10-29 23:19 | NUR ---
Down to CT
[2019-10-30] VITALS (22 sets, daily range): BP systolic 108–164; BP diastolic 31–68
[2019-10-30 00:41] LABS: ABG HCO3 27.6 mmol/L (22.0-26.0); ABG OXYGEN SATURATION 94.6 % (94-97); ABG PCO2 (T) 37.7 mmHg (32.0-45.0); ABG PO2 (T) 74.4 mmHg (75.0-100.0); ALLEN'S TEST POSITIVE; FCOHb 0.2 % (0.0-3.9); FMetHb 0.2 % (0.0-1.5); FO2Hb 94.2 % (94-97); PATIENT TEMPERATURE 37.6; TOTAL HEMOGLOBIN 6.6 G/dl (12.0-16.0)
[2019-10-30] MEDS: insulin regular, human U-100 3ml vial - multi-dose SQ SCH ×2 (02:47→20:12)
--- NOTE | 2019-10-30 04:39 | NUR ---
Tele called and said patient is going in and out of junctional rhythm. Called MD, no new orders
--- NOTE | 2019-10-30 05:17 | NUR ---
Laila Falcon BOWLING ALLEY MANAGER called me in regards to patient and is requesting the stroke nurse to be contacted early this am but not at this time about the neurological changes that have occurred tonight. He also wants SOC neurologist to be contacted early am to re eval via the telemed machine and make recommendations.
--- NOTE | 2019-10-30 06:33 | NUR ---
Problems reprioritized. Patient report given, questions answered & plan of care reviewed with Christelle KOTHARI.
[2019-10-30 07:12] LABS: ALANINE AMINOTRANSFERASE 25 U/L (12-78); ALBUMIN 1.4 G/DL (3.4-5.0); ALBUMIN/GLOBULIN RATIO 0.7 (1.1-1.5); ALKALINE PHOSPHATASE 51 IU/L (46-116); ANION GAP 4 (8-16); ASPARTATE AMINO TRANSFERASE 31 U/L (10-37); BILIRUBIN,TOTAL 0.5 MG/DL (0.1-1.0); BLOOD UREA NITROGEN 46 MG/DL (7-18); BUN/CREATININE RATIO 36.2 (6.6-38.0); CALCIUM 6.7 MG/DL (8.5-10.1); CHLORIDE 118 MMOL/L (99-107); CREATININE 1.27 MG/DL (0.40-0.90); GLUCOSE 148 MG/DL (70-104); POTASSIUM 3.7 MMOL/L (3.5-5.1); SODIUM 152 MMOL/L (135-145); TOTAL CARBON DIOXIDE 29.8 MMOL/L (24-32); TOTAL PROTEIN 3.5 G/DL (6.4-8.2); eGFR 40 ML/MIN
[2019-10-30] MEDS: furosemide 40mg/4ml inj IV SCH (08:00)
[2019-10-30] MEDS: hydrALAZINE 25 MG tablet CORPAK SCH ×3 (08:00→20:27)
[2019-10-30] MEDS: cloNIDine 0.1 mg tablet CORPAK SCH ×3 (08:00→20:27)
[2019-10-30] MEDS: K and/or MAG REPLACEMENT MC SCH ×2 (08:00→20:00)
[2019-10-30] MEDS: lactobacillus rhamnosus 10,000 MMU CELLS/CAPSULE CORPAK SCH ×2 (08:00→20:27)
[2019-10-30] MEDS: clopidogrel 75mg tablet CORPAK SCH (08:00)
[2019-10-30] MEDS: lisinopril 10 MG tablet CORPAK SCH (08:00)
[2019-10-30] MEDS: ARGININE/GLUTAMINE/CALCIUM BMB (JUVEN 19.3GM PKT) 1 EACH POWD.PACK PO SCH ×2 (08:00→20:00)
[2019-10-30 08:23] LABS: BASOPHILS % (AUTO) 0.2 % (0-1); EOSINOPHILS # (AUTO) 0.3 X10'3 (0-0.9); LYMPHOCYTES # (AUTO) 8.8 X10'3 (1.1-4.8); LYMPHOCYTES % (AUTO) 32.1 % (21-51); MEAN CORPUSCULAR HEMOGLOBIN 31.7 PG (27.0-31.0); MEAN CORPUSCULAR HGB CONC 32.1 g/dL (33.0-36.5); MEAN CORPUSCULAR VOLUME 98.8 FL (78-98); MEAN PLATELET VOLUME 9.6 FL (7.4-10.4); MONOCYTES # (AUTO) 0.5 X10'3 (0-0.9); MONOCYTES % (AUTO) 1.7 % (2-12); NEUTROPHILS # (AUTO) 17.8 X10'3 (1.8-7.7); PLATELET COUNT 74 X10'3 (140-440); RED BLOOD COUNT 1.92 X10'6 (4.20-5.60); RED CELL DISTRIBUTION WIDTH 16.2 % (11.5-14.5)
[2019-10-30 08:48] LABS: HEMOGLOBIN 6.1 g/dl (12.0-16.0); WHITE BLOOD COUNT 27.3 X10'3 (4.5-11.0)
[2019-10-30 08:50] LABS: TOTAL CELLS COUNTED 100
[2019-10-30 08:51] LABS: ANISOCYTOSIS 1+; PLATELET ESTIMATE DECREASED; POLYCHROMASIA 1+; SPHEROCYTES FEW
[2019-10-30 08:52] LABS: TOXIC GRANULATION 2+
[2019-10-30 08:53] LABS: LARGE PLATELETS FEW; SMUDGE CELLS FEW
[2019-10-30 09:51] LABS: ABG BASE EXCESS 4.1 mmol/L (-2.0-2.0); ABG HCO3 27.6 mmol/L (22.0-26.0); ABG OXYGEN SATURATION 91.9 % (94-97); ABG PCO2 (T) 36.6 mmHg (32.0-45.0); ABG PO2 (T) 61.2 mmHg (75.0-100.0); ALLEN'S TEST POSITIVE; FCOHb 0.4 % (0.0-3.9); FMetHb 0.4 % (0.0-1.5); FO2Hb 91.2 % (94-97); TOTAL HEMOGLOBIN 7.2 G/dl (12.0-16.0)
[2019-10-30] MEDS: cefepime 1GM in D5W 50mL 50 ML IV SCH ×2 (09:51→20:21)
--- NOTE | 2019-10-30 10:39 | NUR ---
Attempt to call sonRodrigo to notify of the patients transfer. I left message telling him that she has had a change in her LOC and that she had been transferred to room 2012 and to call back if he had any questions
[2019-10-30] MEDS: midazolam 2 mg/2 ml injection ONE ×2 (11:03→11:11)
[2019-10-30] MEDS ORDERED: FENTANYL-0.9 % NACL/PF 100 ML IV PRN (11:05)
[2019-10-30] MEDS ORDERED: midazolam 100mg in NS 100ml 100 ML IV PRN (11:05)
[2019-10-30] MEDS ORDERED: MIDAZolam 5mg/ml 2ml vial IV ONE (11:10)
[2019-10-30] MEDS ORDERED: midazolam 2 mg/2 ml injection IV ONE (11:45)
[2019-10-30 11:55] LABS: ABG BASE EXCESS 2.7 mmol/L (-2.0-2.0); ABG OXYGEN SATURATION 98.6 % (94-97); ABG PCO2 (T) 30.1 mmHg (32.0-45.0); ABG PO2 (T) 176.1 mmHg (75.0-100.0); ALLEN'S TEST POSITIVE; FCOHb 0.3 % (0.0-3.9); FLOW 35 L/min; FMetHb 0.1 % (0.0-1.5); FO2Hb 98.2 % (94-97); PEEP 5 cm H2O; RESPIRATORY RATE 15 b/min; TIDAL VOLUME 450 mL; TOTAL HEMOGLOBIN 9.4 G/dl (12.0-16.0)
[2019-10-30] MEDS: Dextrose 10%-water IV solution 1,000 ML IV SCH (12:05)
[2019-10-30] MEDS: pantoprazole 40 MG vial IV SCH ×2 (12:25→20:33)
[2019-10-30] MEDS: metroNIDAZOLE-Flagyl 500mg/NS 100 ML IV SCH ×2 (12:26→22:19)
[2019-10-30] MEDS ORDERED: VANCOMYCIN LEVEL IV ONE (12:30)
[2019-10-30 12:42] LABS: VANCOMYCIN,TROUGH 13.3 UG/ML (6.0-14.0)
--- NOTE | 2019-10-30 12:45 | NUR ---
notified Dr. Myrick of patient's H/H: 6.1/19.0; 3 units of PRBC ordered. Also, notified Dr. Myrick that charge authorizer Vandana spoke to patient's son. Son wants CPR only.
[2019-10-30 12:52] LABS: MAGNESIUM 2.6 MG/DL (1.5-2.4); PHOSPHORUS 2.9 MG/DL (2.3-4.5)
--- NOTE | 2019-10-30 13:01 | NUR ---
Patient report given, questions answered & plan of care reviewed with Samantha KOTHARI.
[2019-10-30] MEDS: vancomycin/NS 1 GM ADD-VANTAGE 250 ML X 1 DOSE IV SCH (14:26)
--- NOTE | 2019-10-30 17:44 | NUR ---
notified Dr. Myrick of absent pulse in rt foot; new orders received.
--- NOTE | 2019-10-30 17:45 | NUR ---
paged vascular about STAT vascular ultrasound
[2019-10-30] MEDS: insulin glargine (Lantus) pen - multi-dose SQ SCH (20:14)
--- NOTE | 2019-10-30 20:41 | NUR ---
Notified Torres Falcon of changed code status he told me to put order in. Also notified Torres of what the ortho tech found in the right lower leg. There is diminished cap refill on toes, and I am unable to get a doppler pulse on the right dorsalis pedis. The doppler pulse is present on the posterior tibialis. She does pull back her leg when her toes and foot are touched.
[2019-10-31] VITALS (24 sets, daily range): BP systolic 95–176; BP diastolic 35–80
[2019-10-31] MEDS: insulin regular, human U-100 3ml vial - multi-dose SQ SCH ×4 (02:39→19:27)
[2019-10-31 03:46] LABS: ABG HCO3 24.7 mmol/L (22.0-26.0); ABG OXYGEN SATURATION 97.6 % (94-97); ABG PCO2 (T) 33.9 mmHg (32.0-45.0); ABG PO2 (T) 110.4 mmHg (75.0-100.0); ALLEN'S TEST POSITIVE; FCOHb 0.3 % (0.0-3.9); FMetHb 0.1 % (0.0-1.5); FO2Hb 97.2 % (94-97); PATIENT TEMPERATURE 35.9; PEEP 5 cm H2O; RESPIRATORY RATE 12 b/min; TIDAL VOLUME 450 mL
[2019-10-31 06:04] LABS: ALANINE AMINOTRANSFERASE 23 U/L (12-78); ALBUMIN 1.4 G/DL (3.4-5.0); ALBUMIN/GLOBULIN RATIO 0.5 (1.1-1.5); ALKALINE PHOSPHATASE 83 IU/L (46-116); ANION GAP 6 (8-16); ASPARTATE AMINO TRANSFERASE 28 U/L (10-37); BILIRUBIN,TOTAL 0.9 MG/DL (0.1-1.0); BLOOD UREA NITROGEN 41 MG/DL (7-18); BUN/CREATININE RATIO 36.3 (6.6-38.0); CALCIUM 6.7 MG/DL (8.5-10.1); CHLORIDE 118 MMOL/L (99-107); CREATININE 1.13 MG/DL (0.40-0.90); GLUCOSE 346 MG/DL (70-104); MAGNESIUM 2.6 MG/DL (1.5-2.4); POTASSIUM 3.9 MMOL/L (3.5-5.1); SODIUM 153 MMOL/L (135-145); TOTAL CARBON DIOXIDE 29.2 MMOL/L (24-32); TOTAL PROTEIN 4.1 G/DL (6.4-8.2); eGFR 46 ML/MIN
[2019-10-31 06:08] LABS: BASOPHILS % (AUTO) 0.1 % (0-1); EOSINOPHILS # (AUTO) 0.2 X10'3 (0-0.9); EOSINOPHILS % (AUTO) 0.8 % (0-6); HEMATOCRIT 29.6 % (35.0-45.0); LYMPHOCYTES % (AUTO) 25.6 % (21-51); MEAN CORPUSCULAR HEMOGLOBIN 31.5 PG (27.0-31.0); MEAN CORPUSCULAR HGB CONC 33.7 g/dL (33.0-36.5); MEAN CORPUSCULAR VOLUME 93.3 FL (78-98); MEAN PLATELET VOLUME 9.7 FL (7.4-10.4); MONOCYTES # (AUTO) 0.4 X10'3 (0-0.9); MONOCYTES % (AUTO) 1.8 % (2-12); NEUTROPHILS # (AUTO) 16.9 X10'3 (1.8-7.7); NEUTROPHILS % (AUTO) 71.7 % (42-75); PLATELET COUNT 54 X10'3 (140-440); RED BLOOD COUNT 3.17 X10'6 (4.20-5.60); RED CELL DISTRIBUTION WIDTH 16.9 % (11.5-14.5); WHITE BLOOD COUNT 23.6 X10'3 (4.5-11.0)
--- NOTE | 2019-10-31 06:30 | NUR ---
Patient in room CICU 2011. I have received report from Saleem KOTHARI and had the opportunity to ask questions and assume patient care.
[2019-10-31] MEDS: lisinopril 10 MG tablet CORPAK SCH (07:58)
[2019-10-31] MEDS: lactobacillus rhamnosus 10,000 MMU CELLS/CAPSULE CORPAK SCH ×2 (07:58→19:38)
[2019-10-31] MEDS: hydrALAZINE 25 MG tablet CORPAK SCH ×3 (07:58→19:38)
[2019-10-31] MEDS: cloNIDine 0.1 mg tablet CORPAK SCH ×3 (07:58→19:39)
[2019-10-31] MEDS: clopidogrel 75mg tablet CORPAK SCH (07:58)
[2019-10-31] MEDS: furosemide 40mg/4ml inj IV SCH (07:59)
[2019-10-31] MEDS: ARGININE/GLUTAMINE/CALCIUM BMB (JUVEN 19.3GM PKT) 1 EACH POWD.PACK PO SCH ×2 (07:59→19:40)
[2019-10-31] MEDS: cefepime inj. 1 GM in normal saline 100ml IV soln 100 ML IV SCH ×2 (07:59→20:12)
[2019-10-31] MEDS: metroNIDAZOLE-Flagyl 500mg/NS 100 ML IV SCH ×2 (07:59→20:12)
[2019-10-31] MEDS: pantoprazole 40 MG vial IV SCH ×2 (07:59→19:43)
[2019-10-31] MEDS: K and/or MAG REPLACEMENT MC SCH ×2 (08:00→20:00)
[2019-10-31 08:06] LABS: PLATELET ESTIMATE DECREASED; POLYCHROMASIA FEW
[2019-10-31 08:07] LABS: ACANTHOCYTES FEW; ANISOCYTOSIS 1+; BURR CELLS FEW; SPHEROCYTES FEW
[2019-10-31] MEDS: Dextrose 10%-water IV solution 1,000 ML IV SCH (09:10)
[2019-10-31] MEDS ORDERED: desmopressin 0.1mg/ml nasal spray 5ml btl NS ONE (10:40)
[2019-10-31] MEDS ORDERED: VANCOMYCIN LEVEL IV ONE (12:30)
--- NOTE | 2019-10-31 14:59 | NUR ---
Reassessment: Pt transferred to critical care unit, currently intubated. Recommend formula change to Vital AF with goal rate of 60 mL/hr to better meet estimated nutrient needs while on the vent. Formula change will also provide less electrolytes and carbs. Discussed recommendation with RN who d/w TRICIA CLARKE okayed formula change. Pt receiving 200 mL water flush Q4H. LBM 10/30, documented as liquid. Will continue to follow closely. Recommend: 1) Continuous Vital AF 1.2 with goal rate of 60 mL/hr to provide: 1440 mL total volume/day, 1728 kcal, 108 g protein, and 1168 mL water 2) Additional 200ml water flush Q4H; monitor serum Na 3) Moses packet BID for wound healing; administer with 120 mL free water and flush 40 mL water before and after administration 4) Prealbumin q Saturday/; daily wts 5) Consider anti-diarrheal if diarrhea persists 6) PO diet advancement as medically indicated following extubation, would benefit from f/u BSS prior to advancement Addendum: 10/31/19 at [address] Amended: Links added.
[2019-10-31] MEDS: VANCOmycin 1250MG/NS 250ml Bag 250 ML IV SCH (15:01)
--- NOTE | 2019-10-31 18:15 | NUR ---
Problems reprioritized. Patient report given, questions answered & plan of care reviewed with Saleem KOTHARI.
--- NOTE | 2019-10-31 19:00 | NUR ---
Patient in room CICU 2011. I have received report from Julio César KOTHARI and had the opportunity to ask questions and assume patient care.
[2019-10-31] MEDS: insulin glargine (Lantus) pen - multi-dose SQ SCH (19:30)
[2019-11-01] VITALS (25 sets, daily range): BP systolic 96–163; BP diastolic 35–66
[2019-11-01] MEDS: insulin regular, human U-100 3ml vial - multi-dose SQ SCH ×3 (02:15→13:54)
[2019-11-01 02:46] LABS: ALANINE AMINOTRANSFERASE 21 U/L (12-78); ALBUMIN 1.3 G/DL (3.4-5.0); ALBUMIN/GLOBULIN RATIO 0.5 (1.1-1.5); ALKALINE PHOSPHATASE 58 IU/L (46-116); ANION GAP 3 (8-16); ASPARTATE AMINO TRANSFERASE 27 U/L (10-37); BILIRUBIN,TOTAL 0.6 MG/DL (0.1-1.0); BLOOD UREA NITROGEN 52 MG/DL (7-18); BUN/CREATININE RATIO 55.9 (6.6-38.0); CALCIUM 6.6 MG/DL (8.5-10.1); CHLORIDE 118 MMOL/L (99-107); CREATININE 0.93 MG/DL (0.40-0.90); GLUCOSE 151 MG/DL (70-104); MAGNESIUM 2.3 MG/DL (1.5-2.4); POTASSIUM 3.4 MMOL/L (3.5-5.1); SODIUM 151 MMOL/L (135-145); TOTAL CARBON DIOXIDE 29.9 MMOL/L (24-32); TOTAL PROTEIN 3.7 G/DL (6.4-8.2); eGFR 58 ML/MIN
[2019-11-01 03:15] LABS: BASOPHILS # (AUTO) 0.1 X10'3 (0-0.2); BASOPHILS % (AUTO) 0.3 % (0-1); EOSINOPHILS # (AUTO) 0.4 X10'3 (0-0.9); EOSINOPHILS % (AUTO) 2.2 % (0-6); HEMATOCRIT 26.3 % (35.0-45.0); HEMOGLOBIN 8.8 g/dl (12.0-16.0); LYMPHOCYTES % (AUTO) 30.9 % (21-51); MEAN CORPUSCULAR HEMOGLOBIN 31.4 PG (27.0-31.0); MEAN CORPUSCULAR HGB CONC 33.6 g/dL (33.0-36.5); MEAN CORPUSCULAR VOLUME 93.4 FL (78-98); MEAN PLATELET VOLUME 11.2 FL (7.4-10.4); MONOCYTES # (AUTO) 0.4 X10'3 (0-0.9); MONOCYTES % (AUTO) 2.2 % (2-12); NEUTROPHILS # (AUTO) 12.4 X10'3 (1.8-7.7); NEUTROPHILS % (AUTO) 64.4 % (42-75); PLATELET COUNT 57 X10'3 (140-440); RED BLOOD COUNT 2.81 X10'6 (4.20-5.60); RED CELL DISTRIBUTION WIDTH 16.9 % (11.5-14.5); WHITE BLOOD COUNT 19.3 X10'3 (4.5-11.0)
[2019-11-01 03:35] LABS: ABG BASE EXCESS 1.7 mmol/L (-2.0-2.0); ABG HCO3 25.4 mmol/L (22.0-26.0); ABG OXYGEN SATURATION 97.6 % (94-97); ABG PCO2 (T) 36.6 mmHg (32.0-45.0); ABG PO2 (T) 111.9 mmHg (75.0-100.0); ALLEN'S TEST POSITIVE; FCOHb 0.3 % (0.0-3.9); FMetHb 0.2 % (0.0-1.5); FO2Hb 97.1 % (94-97); PATIENT TEMPERATURE 37.2; PEEP 5 cm H2O; RESPIRATORY RATE 12 b/min; TIDAL VOLUME 450 mL; TOTAL HEMOGLOBIN 9.3 G/dl (12.0-16.0)
[2019-11-01] MEDS ORDERED: potassium CL 10mEq/100ml bag 100 ML IV PRN (04:40)
[2019-11-01] MEDS ORDERED: potassium Cl 20 mEq SR tablet PO PRN ×2 (04:40)
--- NOTE | 2019-11-01 06:30 | NUR ---
Received report from TAYE Monge
[2019-11-01 06:33] LABS: ANISOCYTOSIS 1+; LARGE PLATELETS FEW; PLATELET ESTIMATE DECREASED; POLYCHROMASIA FEW; SPHEROCYTES FEW
[2019-11-01] MEDS: K and/or MAG REPLACEMENT MC SCH ×2 (08:00→19:16)
[2019-11-01] MEDS: cefepime inj. 1 GM in normal saline 100ml IV soln 100 ML IV SCH ×2 (08:56→19:15)
[2019-11-01] MEDS: metroNIDAZOLE-Flagyl 500mg/NS 100 ML IV SCH ×2 (08:56→19:15)
[2019-11-01] MEDS: pantoprazole 40 MG vial IV SCH ×2 (08:56→19:16)
[2019-11-01] MEDS: cloNIDine 0.1 mg tablet CORPAK SCH ×3 (08:56→20:17)
[2019-11-01] MEDS: furosemide 40mg/4ml inj IV SCH (08:57)
[2019-11-01] MEDS: lactobacillus rhamnosus 10,000 MMU CELLS/CAPSULE CORPAK SCH ×2 (08:57→19:16)
[2019-11-01] MEDS: clopidogrel 75mg tablet CORPAK SCH (08:57)
[2019-11-01] MEDS: lisinopril 10 MG tablet CORPAK SCH (08:57)
[2019-11-01] MEDS: hydrALAZINE 25 MG tablet CORPAK SCH ×3 (08:57→20:17)
[2019-11-01] MEDS: Dextrose 10%-water IV solution 1,000 ML IV SCH ×2 (09:10→23:42)
[2019-11-01] MEDS: ARGININE/GLUTAMINE/CALCIUM BMB (JUVEN 19.3GM PKT) 1 EACH POWD.PACK PO SCH (09:11)
--- NOTE | 2019-11-01 11:59 | NUR ---
TF Consult: Accidental w/ current diet order completed. Prior recommended rate Vital AF at 60ml/hr reordered and to continue for EN. Addendum: 11/01/19 at [address] Amended: Links added.
[2019-11-01] MEDS: VANCOmycin 1250MG/NS 250ml Bag 250 ML IV SCH (13:51)
--- NOTE | 2019-11-01 18:34 | NUR ---
Report given to TAYE Flores
--- NOTE | 2019-11-01 18:35 | NUR ---
Patient in room CICU 2011. I have received report from braden faustin and had the opportunity to ask questions and assume patient care.
[2019-11-01] MEDS ORDERED: albumin (Human) 5% 250ml 250 ML IV ONE ×3 (19:35→19:55)
--- NOTE | 2019-11-01 19:36 | NUR ---
pt has a map of 54 with a diastolic bp of high 30s. admissions gate attendant ordered 500 ml albumin 5% and to hold bp medications tonight.
[2019-11-01] MEDS ORDERED: POTASSIUM BICARB 20meq eff tab 20 MEQ TABLET.EFF PO PRN ×2 (19:41→19:42)
--- NOTE | 2019-11-01 19:47 | NUR ---
spoke to froilan Falcon about pt maintenance fluids. pt is on d10 at 50ml/hr. pt has tube feed running at 60 which is goal rate and is currently a level 6 on hyperglycemic protocol. ccnp ordered to switch maintenance fluids to normal saline.
[2019-11-01] MEDS: normal saline 1000ml 1,000 ML IV SCH (20:16)
--- NOTE | 2019-11-01 20:21 | NUR ---
pt due to get 18 units of xochilt brandt order for hyperglycemic protocol. called heavy forger victor manuel to confirm if that is still the correct dose given new orders to switch d10 with normal saline for maintenance fluids. heavy forger ordered to have pt re-meet hyperglycemic protocol.
[2019-11-01] MEDS: insulin glargine (Lantus) pen - multi-dose SQ SCH (20:24)
[2019-11-02] VITALS (24 sets, daily range): BP systolic 87–152; BP diastolic 33–82
[2019-11-02] MEDS ORDERED: normal saline 500ml IV soln 1,000 ML IV ONE (01:25)
[2019-11-02] MEDS ORDERED: midodrine 5mg tablet PO ONE (01:25)
--- NOTE | 2019-11-02 01:36 | NUR ---
pt diastolic bp remains in the mid 30's. dental assistant victor manuel notified, orders for a 500 normal saline bolus and 10 mg midodrine po once received.
[2019-11-02 03:46] LABS: ABG BASE EXCESS -2.4 mmol/L (-2.0-2.0); ABG HCO3 21.5 mmol/L (22.0-26.0); ABG PCO2 (T) 32.7 mmHg (32.0-45.0); ALLEN'S TEST POSITIVE; FCOHb 0.9 % (0.0-3.9); FMetHb 0.3 % (0.0-1.5); FO2Hb 95.8 % (94-97); PATIENT TEMPERATURE 36.7; PEEP 5 cm H2O; RESPIRATORY RATE 12 b/min; TIDAL VOLUME 450 mL; TOTAL HEMOGLOBIN 7.5 G/dl (12.0-16.0)
--- NOTE | 2019-11-02 06:40 | NUR ---
Received report from TAYE Flores
[2019-11-02] MEDS: hydrALAZINE 25 MG tablet CORPAK SCH ×3 (08:00→21:00)
[2019-11-02] MEDS: cloNIDine 0.1 mg tablet CORPAK SCH ×3 (08:00→21:00)
[2019-11-02] MEDS: lisinopril 10 MG tablet CORPAK SCH (08:00)
[2019-11-02] MEDS: K and/or MAG REPLACEMENT MC SCH ×2 (08:00→19:25)
[2019-11-02] MEDS: pantoprazole 40 MG vial IV SCH ×2 (08:55→19:19)
[2019-11-02] MEDS: furosemide 40mg/4ml inj IV SCH (08:55)
[2019-11-02] MEDS: metroNIDAZOLE-Flagyl 500mg/NS 100 ML IV SCH ×2 (08:55→19:18)
[2019-11-02] MEDS: cefepime inj. 1 GM in normal saline 100ml IV soln 100 ML IV SCH ×2 (08:55→19:18)
[2019-11-02] MEDS: lactobacillus rhamnosus 10,000 MMU CELLS/CAPSULE CORPAK SCH ×2 (08:56→19:17)
[2019-11-02] MEDS: clopidogrel 75mg tablet CORPAK SCH (08:56)
[2019-11-02 09:13] LABS: ALANINE AMINOTRANSFERASE 16 U/L (12-78); ALBUMIN 1.3 G/DL (3.4-5.0); ALBUMIN/GLOBULIN RATIO 0.6 (1.1-1.5); ALKALINE PHOSPHATASE 50 IU/L (46-116); ANION GAP 5 (8-16); ASPARTATE AMINO TRANSFERASE 26 U/L (10-37); BILIRUBIN,TOTAL 0.6 MG/DL (0.1-1.0); BLOOD UREA NITROGEN 68 MG/DL (7-18); BUN/CREATININE RATIO 65.4 (6.6-38.0); CALCIUM 6.6 MG/DL (8.5-10.1); CHLORIDE 112 MMOL/L (99-107); CREATININE 1.04 MG/DL (0.40-0.90); GLUCOSE 249 MG/DL (70-104); MAGNESIUM 2.2 MG/DL (1.5-2.4); POTASSIUM 4.3 MMOL/L (3.5-5.1); SODIUM 140 MMOL/L (135-145); TOTAL CARBON DIOXIDE 22.8 MMOL/L (24-32); TOTAL PROTEIN 3.4 G/DL (6.4-8.2); eGFR 51 ML/MIN
[2019-11-02] MEDS: insulin regular, human U-100 3ml vial - multi-dose SQ SCH ×3 (09:20→21:48)
[2019-11-02] MEDS: normal saline 1000ml 1,000 ML IV SCH (13:09)
[2019-11-02] MEDS: VANCOmycin 1250MG/NS 250ml Bag 250 ML IV SCH (13:13)
--- NOTE | 2019-11-02 18:46 | NUR ---
Patient in room CICU 2011. I have received report and had the opportunity to ask questions and assume patient care.
--- NOTE | 2019-11-02 19:00 | NUR ---
while bathing pt found bilateral inner labia ulcerations. covered with xeroform and gauze. pictures in chart
[2019-11-02] MEDS: Dextrose 10%-water IV solution 1,000 ML IV SCH (20:05)
--- NOTE | 2019-11-02 20:30 | NUR ---
pt diastolic bp remains in the 30's. froilan rush notified. ordered to hold bp medications tonight
[2019-11-02] MEDS: insulin glargine (Lantus) pen - multi-dose SQ SCH (21:49)
[2019-11-03] VITALS (13 sets, daily range): BP systolic 122–208; BP diastolic 30–67
[2019-11-03] MEDS: insulin regular, human U-100 3ml vial - multi-dose SQ SCH (03:14)
[2019-11-03 04:45] LABS: ABG BASE EXCESS -4.6 mmol/L (-2.0-2.0); ABG HCO3 19.4 mmol/L (22.0-26.0); ABG OXYGEN SATURATION 96.7 % (94-97); ABG PCO2 (T) 31.5 mmHg (32.0-45.0); ABG PO2 (T) 92.3 mmHg (75.0-100.0); ALLEN'S TEST POSITIVE; FCOHb 0.5 % (0.0-3.9); FMetHb 0.2 % (0.0-1.5); PATIENT TEMPERATURE 36.9; PEEP 5 cm H2O; RESPIRATORY RATE 12 b/min; TIDAL VOLUME 450 mL; TOTAL HEMOGLOBIN 8.1 G/dl (12.0-16.0)
--- NOTE | 2019-11-03 05:16 | NUR ---
pt is very edematous. unable to draw morning labs. pt doesn't have a line to draw off of. lab was not able to draw her blood, respiratory tried to get enough blood for labs when abg was drawn but was unsuccessful. appointment scheduler aware pt needs a line
--- NOTE | 2019-11-03 06:09 | NUR ---
Problems reprioritized. Patient report given, questions answered & plan of care reviewed
[2019-11-03] MEDS: pantoprazole 40 MG vial IV SCH (07:44)
[2019-11-03] MEDS: furosemide 40mg/4ml inj IV SCH (07:44)
[2019-11-03] MEDS: metroNIDAZOLE-Flagyl 500mg/NS 100 ML IV SCH (07:44)
[2019-11-03] MEDS: cefepime inj. 1 GM in normal saline 100ml IV soln 100 ML IV SCH (07:44)
[2019-11-03] MEDS: normal saline 1000ml 1,000 ML IV SCH (07:45)
[2019-11-03] MEDS: clopidogrel 75mg tablet CORPAK SCH (07:47)
[2019-11-03] MEDS: lactobacillus rhamnosus 10,000 MMU CELLS/CAPSULE CORPAK SCH (07:47)
[2019-11-03] MEDS: cloNIDine 0.1 mg tablet CORPAK SCH (08:08)
[2019-11-03] MEDS: lisinopril 10 MG tablet CORPAK SCH (08:08)
[2019-11-03] MEDS: hydrALAZINE 25 MG tablet CORPAK SCH (08:09)
[2019-11-03] MEDS ORDERED: docusate sodium 100mg/10ml UD cup CORPAK PRN (08:41)
[2019-11-03] MEDS ORDERED: POTASSIUM BICARB 20meq eff tab 20 MEQ TABLET.EFF CORPAK PRN ×2 (08:41→08:42)
[2019-11-03 08:42] LABS: EOSINOPHILS # (AUTO) 0.3 X10'3 (0-0.9); HEMOGLOBIN 7.5 g/dl (12.0-16.0); MONOCYTES # (AUTO) 0.2 X10'3 (0-0.9)
[2019-11-03 08:43] LABS: BASOPHILS % (AUTO) 0.4 % (0-1); EOSINOPHILS % (AUTO) 4.6 % (0-6); HEMATOCRIT 22.6 % (35.0-45.0); LYMPHOCYTES # (AUTO) 2.6 X10'3 (1.1-4.8); LYMPHOCYTES % (AUTO) 39.3 % (21-51); MEAN CORPUSCULAR HEMOGLOBIN 31.8 PG (27.0-31.0); MEAN CORPUSCULAR HGB CONC 33.2 g/dL (33.0-36.5); MEAN CORPUSCULAR VOLUME 95.6 FL (78-98); MEAN PLATELET VOLUME 11.8 FL (7.4-10.4); MONOCYTES % (AUTO) 2.8 % (2-12); NEUTROPHILS # (AUTO) 3.4 X10'3 (1.8-7.7); NEUTROPHILS % (AUTO) 52.9 % (42-75); PLATELET COUNT 69 X10'3 (140-440); RED BLOOD COUNT 2.36 X10'6 (4.20-5.60); RED CELL DISTRIBUTION WIDTH 16.6 % (11.5-14.5); WHITE BLOOD COUNT 6.5 X10'3 (4.5-11.0)
[2019-11-03 09:03] LABS: ALANINE AMINOTRANSFERASE 16 U/L (12-78); ALBUMIN 1.3 G/DL (3.4-5.0); ALBUMIN/GLOBULIN RATIO 0.6 (1.1-1.5); ALKALINE PHOSPHATASE 53 IU/L (46-116); ANION GAP 7 (8-16); ASPARTATE AMINO TRANSFERASE 20 U/L (10-37); BILIRUBIN,TOTAL 0.5 MG/DL (0.1-1.0); BLOOD UREA NITROGEN 73 MG/DL (7-18); BUN/CREATININE RATIO 63.5 (6.6-38.0); CALCIUM 6.4 MG/DL (8.5-10.1); CHLORIDE 115 MMOL/L (99-107); CREATININE 1.15 MG/DL (0.40-0.90); GLUCOSE 191 MG/DL (70-104); MAGNESIUM 2.3 MG/DL (1.5-2.4); POTASSIUM 4.1 MMOL/L (3.5-5.1); SODIUM 145 MMOL/L (135-145); TOTAL PROTEIN 3.5 G/DL (6.4-8.2); eGFR 45 ML/MIN
[2019-11-03] MEDS ORDERED: LORazepam 2 mg/ml vial IV PRN (11:10)
--- NOTE | 2019-11-03 11:53 | NUR ---
Follow up: pt now comfort care. tube feedings stopped. Addendum: 11/03/19 at [address] Amended: Links added.
[2019-11-03] MEDS ORDERED: VANCOMYCIN LEVEL IV ONE (13:30)
[2019-11-03] MEDS ORDERED: morphine 10mg/ml inj. IV PRN (15:30)
--- NOTE | 2019-11-03 18:29 | NUR ---
Patient in room CICU 2011. I have received report from MARGO KOTHARI and had the opportunity to ask questions and assume patient care.
[2019-11-03] MEDS: morphine 10mg/ml inj. IV PRN (18:56)
--- NOTE | 2019-11-03 20:55 | NUR ---
Patient in room ORTHO 4011. I have received report from TAYE Flores and had the opportunity to ask questions and assume patient care.
--- NOTE | 2019-11-03 20:56 | NUR ---
Problems reprioritized. Patient report given, questions answered & plan of care reviewed with jose faustin.
--- NOTE | 2019-11-04 06:26 | NUR ---
Problems reprioritized. Patient report given, questions answered & plan of care reviewed with TAYE Nicole.
[2019-11-04 06:56] LABS: BASOPHILS % (AUTO) 0.3 % (0-1); EOSINOPHILS # (AUTO) 0.5 X10'3 (0-0.9); EOSINOPHILS % (AUTO) 5.2 % (0-6); HEMATOCRIT 26.9 % (35.0-45.0); HEMOGLOBIN 8.9 g/dl (12.0-16.0); LYMPHOCYTES # (AUTO) 3.1 X10'3 (1.1-4.8); LYMPHOCYTES % (AUTO) 33.1 % (21-51); MEAN CORPUSCULAR HEMOGLOBIN 31.8 PG (27.0-31.0); MEAN CORPUSCULAR HGB CONC 33.1 g/dL (33.0-36.5); MEAN PLATELET VOLUME 11.5 FL (7.4-10.4); MONOCYTES # (AUTO) 0.3 X10'3 (0-0.9); NEUTROPHILS # (AUTO) 5.4 X10'3 (1.8-7.7); NEUTROPHILS % (AUTO) 58.4 % (42-75); PLATELET COUNT 109 X10'3 (140-440); RED CELL DISTRIBUTION WIDTH 16.9 % (11.5-14.5); WHITE BLOOD COUNT 9.3 X10'3 (4.5-11.0)
[2019-11-04 07:00] VITALS: BP 149/90
[2019-11-04 07:24] LABS: ALANINE AMINOTRANSFERASE 19 U/L (12-78); ALBUMIN 1.5 G/DL (3.4-5.0); ALBUMIN/GLOBULIN RATIO 0.6 (1.1-1.5); ALKALINE PHOSPHATASE 50 IU/L (46-116); ANION GAP 7 (8-16); ASPARTATE AMINO TRANSFERASE 20 U/L (10-37); BILIRUBIN,TOTAL 0.7 MG/DL (0.1-1.0); BLOOD UREA NITROGEN 61 MG/DL (7-18); BUN/CREATININE RATIO 55.5 (6.6-38.0); CALCIUM 7.2 MG/DL (8.5-10.1); CHLORIDE 115 MMOL/L (99-107); GLUCOSE 169 MG/DL (70-104); MAGNESIUM 2.4 MG/DL (1.5-2.4); POTASSIUM 4.4 MMOL/L (3.5-5.1); SODIUM 146 MMOL/L (135-145); TOTAL CARBON DIOXIDE 23.8 MMOL/L (24-32); TOTAL PROTEIN 4.2 G/DL (6.4-8.2); eGFR 48 ML/MIN
[2019-11-04 07:31] LABS: LARGE PLATELETS FEW; PLATELET ESTIMATE DECREASED
[2019-11-04 10:00] VITALS: BP 153/47
--- NOTE | 2019-11-04 11:09 | NUR ---
Patient in room ORTHO 4011B. I have received report from TAYE Nicole and had the opportunity to ask questions and assume patient care.
--- NOTE | 2019-11-04 17:56 | NUR ---
changed pts bandages, no complications, pt resting comfortably.
--- NOTE | 2019-11-04 18:35 | NUR ---
Problems reprioritized. Patient report given, questions answered & plan of care reviewed with TAYE Brice.
[2019-11-05 06:00] VITALS: BP 166/58
--- NOTE | 2019-11-05 06:39 | NUR ---
Patient in room ORTHO 4011B. I have received report from Babs Yoder RN and had the opportunity to ask questions and assume patient care.
[2019-11-05 10:00] VITALS: BP 163/63
[2019-11-05] MEDS: morphine 10mg/ml inj. IV PRN ×4 (13:54→23:40)
--- NOTE | 2019-11-05 16:51 | NUR ---
Problems reprioritized. Patient report given, questions answered & plan of care reviewed with TAYE Adams on Surgical.
--- NOTE | 2019-11-05 16:56 | NUR ---
called pts son Rodrigo and advised him that we were transferring pt to surgical unit 351.
--- NOTE | 2019-11-05 17:26 | NUR ---
I have received report from TAYE RAMOS and had the opportunity to ask questions and assume patient care. Received patient to room 351 via bed accompanied by x1 staff. Patient with eyes closed, unresponsive to voice or pain but appears to be comfortable. Starks catheter and rectal tube in place.
[2019-11-05 18:00] VITALS: BP 159/62
--- NOTE | 2019-11-05 18:36 | NUR ---
Patient in room [facility]. I have received report from TAYE Gardner and had the opportunity to ask questions and assume patient care.
--- NOTE | 2019-11-05 18:49 | NUR ---
Problems reprioritized. Patient report given, questions answered & plan of care reviewed with ramin fernandez.
[2019-11-06] MEDS: morphine 10mg/ml inj. IV PRN ×2 (03:46→17:34)
[2019-11-06 06:30] VITALS: BP 147/58
--- NOTE | 2019-11-06 06:30 | NUR ---
Patient in room [facility]. I have received report from TAYE Lobo and had the opportunity to ask questions and assume patient care.
--- NOTE | 2019-11-06 06:46 | NUR ---
Problems reprioritized. Patient report given, questions answered & plan of care reviewed with TAYE Gill.
--- NOTE | 2019-11-06 18:15 | NUR ---
Problems reprioritized. Patient report given, questions answered & plan of care reviewed with TAYE Lobo.
--- NOTE | 2019-11-06 18:38 | NUR ---
Patient in room [facility]. I have received report from TAYE Gill and had the opportunity to ask questions and assume patient care.
[2019-11-06 19:00] VITALS: BP 143/99
[2019-11-07] MEDS: morphine 10mg/ml inj. IV PRN (04:02)
--- NOTE | 2019-11-07 06:10 | NUR ---
Patient in room [facility]. I have received report from TAYE Lobo and had the opportunity to ask questions and assume patient care.
[2019-11-07 06:30] VITALS: BP 162/56
--- NOTE | 2019-11-07 06:33 | NUR ---
Problems reprioritized. Patient report given, questions answered & plan of care reviewed with TAYE Gill.
--- NOTE | 2019-11-07 11:20 | NUR ---
Pt passed, pronounced by Maria Del Carmen Patel NP.
--- NOTE | 2019-11-07 12:12 | NUR ---
RN IS TO DOCUMENT YES TO ALL APPLICABLE AREAS Pronouncement of : 1. Time Physician Notified:112 2. Date of :11/07/2019 3. Time of : 112 4. DNR/Withdraw life support documented:Yes 5. Monitor strip has been placed on chart:N/A. Maria Del Carmen albert 6. Assessment process is of one-minute duration and includes following criteria: a) Patient is unresponsive to all stimuli: b) Pupils fixed and non-reactive: c) Auscultation of precordium reveals absence of heart tones: d) Auscultation of lungs reveals absence of breath sounds: e) Absence of blood pressure / all vital signs: f) QRS complexes are not present on monitor / EKG strip: g) Pacer spikes without capture: 4. Comments: Son, Joana, notified. Donor network called & Mortuary notified.
--- NOTE | 2019-11-07 13:45 | NUR ---
Pt taken to [facility] by [facility] staff.
== END 2019-11-07 14:15 | disposition expired | DRG 252 ==
LOC: ER 14:13 → ED HOLD 18:02 → UNDOADMIN 18:02 → ED HOLD 19:48 → ORTHO 4S 19:48 → CICU 2S 10-13 00:06 → SUR 3N 10-15 19:20 → ORTHO 4S 10-24 17:01 → CICU 2S 10-30 10:49 → ORTHO 4S 11-03 21:10 → SUR 3N 11-05 17:13
PROVIDERS: ADMIT Internal Medicine; ATTEND Internal Medicine Critical Care Medicine
PROC: 047N3ZZ Dilation of Left Popliteal Artery, Percutaneous Approach (ICD-10-PCS; principal; 2019-10-08)
PROC: 041L0JL Bypass Left Femoral Artery to Popliteal Artery with Synthetic Substitute, Open Approach (ICD-10-PCS; 2019-10-08)
PROC: 5A1945Z Respiratory Ventilation, 24-96 Consecutive Hours (ICD-10-PCS; 2019-10-30)
PROC: 0BH17EZ Insertion of Endotracheal Airway into Trachea, Via Natural or Artificial Opening (ICD-10-PCS; 2019-10-30)
DX: I70.209 Unspecified atherosclerosis of native arteries of extremities, unspecified extremity (principal); I63.9 Cerebral infarction, unspecified; J96.00 Acute respiratory failure, unspecified whether with hypoxia or hypercapnia; L03.116 Cellulitis of left lower limb; N17.9 Acute kidney failure, unspecified; I10 Essential (primary) hypertension; I25.10 Atherosclerotic heart disease of native coronary artery without angina pectoris; E11.51 Type 2 diabetes mellitus with diabetic peripheral angiopathy without gangrene; D72.829 Elevated white blood cell count, unspecified; D64.9 Anemia, unspecified
CPT/HCPCS: 36246; 36410; 36415; 36430; 36600; 37224; 70450; 70496; 70498; 71045; 73590; 74018; 75710; 76000; 76937; 80048; 80053; 80061; 80202; 81001; 82803; 82948; 83036; 83605; 83735; 84100; 84132; 84134; 84145; 85018; 85025; 85347; 85379; 85384; 85610; 85730; 86885; 86900; 86901; 86920; 87040; 87081; 88305; 92508; 92616; 93306; 93308; 93922; 93925; 93926; 93970; 93971; 94002; 94003; 94760; 96365; 96366; 96367; 96375; 97110; 97112; 97116; 97161; 97164; 97530; 99152; 99153; 99285; A4618; A6223; A6258; A6402; A6446; A7000; C1725; C1758; C1760; C1768; C1769; C1887; C1894; C9113; G0269; G0378; J0360; J0690; J0692; J1100; J1170; J1200; J1644; J1815; J1940; J1956; J2001; J2060; J2212; J2250; J2270; J2310; J2405; J2543; J2704; J2710; J2765; J2920; J2930; J3010; J3370; J3480; J3490; J7030; J7040; J7050; J7120; P9016; P9045; Q9967